=== PATIENT | female | born 1940 | race Caucasian/White ===

== ENCOUNTER 2023-12-20 18:34 | Emergency (ER) | payer MEDICARE, MEDICAID, SELFPAY ==
[2023-12-20 18:39] VITALS: BP 182/86; PULSE 75; RESP 20; TEMP 36.7; O2SAT 96
--- NOTE | 2023-12-20 18:45 | DI.CT_ITS ---
Exam(s) CT HEAD WO EXAM: CT HEAD WO CLINICAL HISTORY: fall, posterior R scalp hematoma. TECHNIQUE: Imaging Protocol: Axial computed tomography images with coronal and sagittal reformatted images were created and reviewed COMPARISON: No exams were available for comparison FINDINGS: Small high right parietal scalp swelling. There are no skull fractures. There is no fluid in the vis ualized paranasal sinuses. There is no evidence of intracranial hemorrhage, mass effect, or shift of midline structures. There are no extra-axial fluid collections. The ventricles are not enlarged or shifted and there is no blo od within the ventricular system nor within the basal cisterns. There is abundant bilateral symmetrical periventricular white matter hypodensity consistent with assisted living executive director jean-claude small vessel disease. No obvious acute territorial infarct. Calcification in the basal ganglia noted. IMPRESSION: No acute intracranial findings on this noninfused CT scan of the brain. RADIATION DOSE DELIVERED: 741.49mGy.cm Total DLP DATA REPOSITORY: All CT scans at this facility are submitted to the National Radiology Data Registry (NRDR) Dose Index Registry (DIR) with the [employer] (ACR). RADIATION OPTIMIZATION: All CT scans at this facility use at least one of these dose optimization te chniques: automated exposure control; mA and/or kV adjustment per patient size (includes targeted exa ms where dose is matched to clinical indication); or iterative reconstruction.
--- NOTE | 2023-12-20 18:53 | ED.GENADUL_ITS ---
Discharge Plan Disposition Patient Disposition: Home Condition: Stable Discharge Details Clinical Impression: Scalp hematoma Primary Care Provider: Unknown,Unknown ED Provider: Sudheer Montero Home Meds and New Rx's Prescriptions: Continued atenolol 25 mg tablet 25 mg PO DAILY clobetasol 0.05 % cream 1 applic topical BID levocetirizine 5 mg tablet 5 mg PO QHS metronidazole [Metrogel] 1 % gel 1 applic topical DAILY esomeprazole magnesium 20 mg capsule,delayed release(DR/EC) 20 mg PO DAILY oxybutynin chloride 10 mg tablet extended release 24hr 10 mg PO DAILY paroxetine HCl 30 mg tablet 30 mg PO DAILY potassium chloride [Klor-Con 10] 10 mEq tablet extended release 10 meq PO DAILY primidone 50 mg tablet 50 mg PO BID Discharge Instructions Instructions: Scalp Contusion in Adults (ED) Additional Instructions: You were seen in the emergency department for your fall at home striking your right posterior scalp on a piece of furniture. This shows a small contusion or hematoma to the area, please continue to use an ice pack on this area to get swelling to go down. The CT scan is negative for any intracranial bleeding. You are not expressing any significant concussive symptoms but you may feel little bit worse as far as headache tomorrow. Please take 1000 mg of Tylenol 3 times per day for pain as needed. Please return to the emergency department for any neurologic changes like nausea, projectile vomiting, profound lethargy, visual changes. HPI General Date/Time Provider Initiated Documentation: 12/20/23 18:53 . HPI Narrative: 83 year-old female, [facility], presents to ED today by POV/ambulating with her son with a chief complaint of mechanical fall at home, her walker tipped over and she went with it, striking the posterior R side of her head on furniture with onset just prior to arrival. Quality described as headache, no radiation to LOC, laceration, visual changes, nausea, repetitive questioning, numbness/tingling, balance problems beyond baseline. Severity is described as moderate. Palliating factors include nothing specific. Provoking factors include nothing specific. Patient not anticoagulated. Related Data Home Medications Medication Instructions Recorded Confirmed atenolol 25 mg tablet 25 mg PO DAILY 12/20/23 12/20/23 clobetasol 0.05 % topical cream 1 applic topical BID 12/20/23 12/20/23 esomeprazole magnesium 20 mg 20 mg PO DAILY 12/20/23 12/20/23 capsule,delayed release levocetirizine 5 mg tablet 5 mg PO QHS 12/20/23 12/20/23 metronidazole 1 % topical gel 1 applic topical DAILY 12/20/23 12/20/23 (Metrogel) oxybutynin chloride 10 mg 10 mg PO DAILY 12/20/23 12/20/23 tablet,extended release 24 hr paroxetine HCl 30 mg tablet 30 mg PO DAILY 12/20/23 12/20/23 potassium chloride 10 mEq 10 meq PO DAILY 12/20/23 12/20/23 tablet,extended release (Klor-Con) primidone 50 mg tablet 50 mg PO BID 12/20/23 12/20/23 Allergies Allergy/AdvReac Type Severity Reaction Status Date / Time Penicillins Allergy Mild Hives Verified 12/20/23 19:00 General Stated Complaint: Fall/Non TraumaCriteria IDALMIS: 3 Review of Systems All systems reviewed & are unremarkable except as noted in HPI and below Exam Narrative Exam Narrative: GENERAL APPEARANCE: Well-nourished, non-toxic, awake and alert, atraumatic, no acute distress. SKIN: Warm, pink, dry, intact, without rashes/lesions/ulcerations. HEAD: Normocephalic, minor posterior R parietal scalp hematoma without abrasion/laceration, no Paula's sign, no periorbital ecchymosis, normal hair distribution for gender/age. EYES: Pupils PERRLA, EOMs intact without nystagmus, normal conjunctiva, no exudates on lids/lashes. ENT: Nares patent, no circumoral cyanosis, no facial swelling NECK: Supple, trachea midline, painless cervical ROM, no midline vertebral tenderness/crepitus/step-offs. LUNGS/CHEST: Lungs CTA bilaterally, non-labored respirations, normal A/P diameter, symmetrical expansion, no chest wall deformity HEART (CV/PV): Regular rate and rhythm without murmur, no peripheral edema, no JVD. ABDOMEN: Soft, non-distended, no guarding. MSK: Normal ROM, no swelling/deformity to bilateral UEs or LEs, moving all extremities without weakness, no cyanosis, spine midline without tenderness, nor mal curvature. NEURO: Mental Status AAOx4 - alert to person, place, time, events No facial droop, no forehead involvement, no dysmetria with FNF Motor: No focal weakness - strength 5/5 in bilateral UEs and LEs, proximal and distal, symmetric. Sensory: sensation intact to light touch globally. Gait NT PSYCH: euthymic, cooperative, pleasant, appropriate speech Course Vital Signs Vital signs: Vital Signs Temperature 36.7 C 12/20/23 18:39 Pulse 75 12/20/23 18:39 Respiratory Rate 20 12/20/23 18:39 Blood Pressure 182/86 H 12/20/23 18:39 Pulse Oximetry 96 12/20/23 18:39 Temperature 36.7 C 12/20/23 18:39 Temperature Source Skin 12/20/23 18:39 Pulse 75 12/20/23 18:39 Respiratory Rate 20 12/20/23 18:39 Respiratory Effort Normal 12/20/23 18:42 Blood Pressure 182/86 H 12/20/23 18:39 Blood Pressure Position Sitting 12/20/23 18:39 Pulse Oximetry 96 12/20/23 18:39 Oxygen Delivery Method Room Air 12/20/23 18:39 Oxygen Flow Rate 0 12/20/23 18:39 Pain Level 9 12/20/23 18:39 Medical Decision Making This dictation utilizes [id number] dictation software and may contain unedited grammatical errors. 83 y/o F presents to ED today with a chief complaint of mechanical fall at home, her walker tipped over, struck her R scalp on furniture. Denies LOC, nausea, repetitive questioning, visual changes. Patient not anticoagulated. Patients' medical history: States hypertension at baseline, tremor at baseline. Pertinent exam findings / vital signs include R parietal scalp hematoma without abrasion/laceration, painless cervical ROM, no dysmetria, neuro intact. Differential / pathologies of concern include headstrike, concussion, scalp hematoma, ICH. Diagnostic studies of: -CT Head wo Contrast - precautionary with patients age and overall health status, but low suspicion for intracranial pathology. Interventions of: -ice pack. ED Course/Assessment/Plan: 83-year-old female tipped over with her walker at home and struck her right parietal scalp on a piece of furniture, denies loss of consciousness, nausea, repetitive questioning or other neurologic abnormality, denying dizziness or visual changes. She lives with her son at home. I counseled her on the low risk for any findings. I recommend she continue her at home treatment for hypertension and counseled on likely mild concussion and may feel a little bit worse tomorrow. Recommend Tylenol 1 g 3 times per day. Recommend strict return criteria for any developing nausea vomiting, alteration from baseline, worsening visual changes, profound lethargy. Findings not consistent with ICH, medical cause of fall. Disposition of Scalp Hematoma. Patient verbalized understanding of the plan and return to ED criteria and engaged in shared decision making. Medical Records Medical records reviewed: Yes I reviewed the patient's medical records. Imaging Data Radiologic Study: Attestation: I personally reviewed and interpreted this imaging study as follows: Imaging: CT Scan Radiologist's impression: Exam: CT Head Without Contrast Exam date and time: 12/20/2023 7:09 PM Age: 83 years old Clinical indication: Injury or trauma; Blunt trauma (contusions or hematomas); Consciousness not specified; Injury date: 10/21/23; Injury details: Fall, posterior R scalp hematoma TECHNIQUE: Imaging protocol: Computed tomography of the head without contrast. Radiation optimization: All CT scans at this facility use at least one of these dose optimization techniques: automated exposure control; mA and/or kV adjustment per patient size (includes targeted exams where dose is matched to clinical indication); or iterative reconstruction. COMPARISON: No relevant prior studies available. FINDINGS: Brain: Slight prominence of cerebral sulci reflects mild cerebral atrophy. Bilateral zones of decreased attenuation seen throughout the deep and periventricular white matter of both cerebral hemispheres are consistent with underlying microvascular ischemic changes. Brainstem and cerebellum are unremarkable and there is no evidence of acute transcortical infarction or recent intracranial hemorrhage. Cerebral ventricles: Ventricular and cisternal spaces are normal in size and configuration and there is no midline shift or hydrocephalus. Paranasal sinuses: Grossly clear throughout. Mastoid air cells: Grossly clear bilaterally. Bones/joints: Bony calvarium and skull base are intact and no acute fractures are detected. Soft tissues: Superior right parietal scalp hematoma is seen near midline with no subjacent fracture detected. IMPRESSION: 1. Cerebral atrophy and underlying microvascular ischemic changes with no evidence of acute transcortical infarction, recent intracranial hemorrhage or hydrocephalus. No acute intracranial process is detected. 2. Superior right parietal scalp hematoma is seen near midline with no subjacent fracture detected. Dictated and Authenticated by: Richar Sabillon MD. Ordering:BRETT Willard MD Quality:SDOH Health Related Social Needs: No Data to Display PFSH All Active Problems (Updated 12/20/23 @ 19:35 by LATOYA Sharma) Scalp hematoma (Acute) Social History Smoking/Tobacco Use Status: Never Smoking risk assessment performed?: Yes Alcohol Intake: never Substance use type: does not use
--- NOTE | 2023-12-20 19:29 | DI.VRAD_ITS ---
PROCEDURE INFORMATION: Exam: CT Head Without Contrast Exam date and time: 12/20/2023 7:09 PM Age: 83 years old Clinical indication: Injury or trauma; Blunt trauma (contusions or hematomas); Consciousness not specified; Injury date: 10/21/23; Injury details: Fall, posterior R scalp hematoma TECHNIQUE: Imaging protocol: Computed tomography of the head without contrast. Radiation optimization: All CT scans at this facility use at least one of these dose optimization techniques: automated exposure control; mA and/or kV adjustment per patient size (includes targeted exams where dose is matched to clinical indication); or iterative reconstruction. COMPARISON: No relevant prior studies available. FINDINGS: Brain: Slight prominence of cerebral sulci reflects mild cerebral atrophy. Bilateral zones of decreased attenuation seen throughout the deep and periventricular white matter of both cerebral hemispheres are consistent with underlying microvascular ischemic changes. Brainstem and cerebellum are unremarkable and there is no evidence of acute transcortical infarction or recent intracranial hemorrhage. Cerebral ventricles: Ventricular and cisternal spaces are normal in size and configuration and there is no midline shift or hydrocephalus. Paranasal sinuses: Grossly clear throughout. Mastoid air cells: Grossly clear bilaterally. Bones/joints: Bony calvarium and skull base are intact and no acute fractures are detected. Soft tissues: Superior right parietal scalp hematoma is seen near midline with no subjacent fracture detected. IMPRESSION: 1. Cerebral atrophy and underlying microvascular ischemic changes with no evidence of acute transcortical infarction, recent intracranial hemorrhage or hydrocephalus. No acute intracranial process is detected. 2. Superior right parietal scalp hematoma is seen near midline with no subjacent fracture detected. Dictated and Authenticated by: Richar Sabillon MD. Ordering:BRETT Willard MD
== END 2023-12-20 20:02 | disposition home or self-care (01) ==
PROVIDERS: Emergency Provider Physician Assistant
DX: S00.03XA Contusion of scalp, initial encounter (principal); W01.190A Fall on same level from slipping, tripping and stumbling with subsequent striking against furniture, initial encounter
CPT/HCPCS: 99284; 70450; 99283

== ENCOUNTER 2024-02-22 12:01 | Emergency (ER) | payer MEDICARE, MEDICAID, SELFPAY ==
[2024-02-22] VITALS (22 sets, daily range): BP systolic 138–175; BP diastolic 60–103; PULSE 58–71; RESP 12–24; TEMP 36.3; O2SAT 93–96
[2024-02-22 12:18] LABS: Abs Immature Grans 0.02 10^3/uL (0.0-0.06); Absolute Basophil Count 0.08 10^3/uL (0.0-0.2); Absolute Eosinophil Count 0.25 10^3/uL (0.0-0.7); Absolute Lymphocyte Count 1.61 10^3/uL (1.2-3.4); Absolute Monocyte Count 0.61 10^3/uL (0.1-0.8); Absolute Neutrophil Count 5.89 10^3/uL (1.2-6.7); Basophils % 0.9 %; HCT 43.3 % (36.0-46.0); HGB 14.5 g/dL (11.2-15.7); Immature Grans % 0.2 %; MCH 31.2 pg (27.0-33.0); MCHC 33.5 % (32.0-36.0); MCV 93 fL (80-95); MPV 9.5 fL (8.0-11.0); Monocytes % 7.2 %; Neutrophils % 69.7 %; Platelet Count 298 10^3/uL (130-400); RBC 4.65 10^6/uL (3.93-5.22); RDW 13.1 % (11.7-14.6); RDW-SD 44.5 fL; WBC 8.46 10^3/uL (4.4-10.8)
[2024-02-22 12:28] LABS: Prothrombin Time 10.4 sec (9.1-11.1)
[2024-02-22 12:40] LABS: ALT 27 U/L (14-59); AST 19 U/L (15-37); Albumin 3.4 g/dL (3.4-5.0); Alkaline Phosphatase 82 U/L (46-116); Anion Gap 10.6 mmol/L (3-11); BUN 10 mg/dL (7-18); Bilirubin, Total 0.55 mg/dL (0.2-1.0); CO2 27.4 mmol/L (21.0-32.0); CREATININE 0.8 mg/dL (0.55-1.02); Calcium 8.8 mg/dL (8.5-10.1); Chloride 103 mmol/L (98-107); Creatine Kinase 52 U/L (26-192); Estimated GFR 73.98 (mL/min/1.73m2); Glucose 113 mg/dL (74-106); Potassium 3.9 mmol/L (3.5-5.1); Sodium 141 mmol/L (136-145); Total Protein 7.9 g/dL (6.4-8.2); Troponin I < 50 ng/L (< or =60)
[2024-02-22 13:05] LABS: Bilirubin Negative (Negative); Blood Negative (Negative); Clarity Clear (Clear); Glucose Negative (Negative); Ketones Negative (Negative); Leukocyte Esterase Trace (Negative); Nitrite Negative (Negative); Specific Gravity 1.025 (1.005-1.025); Urobilinogen 0.2 mg/dL (Up to 0.2)
[2024-02-22 13:13] LABS: Bacteria Few HPF (Negative); C & S Indicated? No; Casts 0-2 Hyaline LPF (Negative); Crystals Negative HPF (Negative); Epithelial Cells Moderate HPF (Negative); Mucus Trace (Negative); RBC Negative HPF (0-2)
[2024-02-22] MEDS: Omnipaque 350 MG/ML 100 ML BTL IJ (13:45)
--- NOTE | 2024-02-22 13:57 | DI.CT_ITS ---
Exam(s) CT BRAIN NECK CTA EXAM: CT BRAIN NECK CTA CLINICAL HISTORY: ? TIA. TECHNIQUE: Imaging Protocol: Axial CT angiography was performed with multi-slice acquisition and mu lti-planar and/or 3D reconstructions. CONTRAST MATERIAL: Intravenous: Omnipaque 350 Contrast volume:structured data in ml COMPARISON: CT CT HEAD WO from 12/20/2023 FINDINGS: CTA Neck W: Aortic arch anatomy: The aortic arch anatomy is conventional and there is no significant stenosis at the origin of the great vessels off of the aortic arch. No intimal flap evident. Anterior circulation: Both common carotid arteries ascend with normal luminal diameters. At the level the carotid bulbs and proximal internal carotid arteries there is minimal plaque without hemodynamically significant stenosis evident. Posterior circulation: Both vertebral arteries originate in conventional fashion off of the subclavian arteries and there is no obvious stenosis at the origin of the vertebral arteries. Both vertebral arteries exhibit normal luminal diameters within the foramen transversarium. Both vertebral arteries contribute to the formation of the basilar artery at the skull base. CTA Brain W: Anterior circulation: Both internal carotid arteries are patent in the skull base-carotid canals as well as within the cave rnous sinuses. The supraclinoid aspects of the ICAs are patent. Both A1 segments are patent as are the anterior cer ebral arteries and there is no evidence of aneurysm at the level of the anterior communicating artery . Both middle cerebral arteries are patent with no evidence of significant stenosis nor intraluminal th rombus. There also no aneurysms of these vessels. Posterior circulation: The basilar artery ascends in the midline. Distally it gives off patent bilateral superior cerebella r arteries. Above this level the basilar artery terminates as patent bilateral posterior cerebral arteries. There is no evidence of aneurysm at the tip of the basilar artery nor elsewhere in the [id number] is. CT BRAIN: There is no evidence of intracranial hemorrhage, mass effect, or shift of midline structures. There are no extra-axial fluid collections. Ventricles are not enlarged or shifted. There is abundant roger ateral periventricular hypodensity consistent with chronic small vessel disease again noted. There are no ring enhancing lesions in the brain and no abnormal meningeal enhancement. IMPRESSION: 1. Patent carotid arteries in the neck. No hemodynamically significant stenosis. 2. Patent vertebral arteries. 3. Patent intracranial arteries. 4. Abundant bilateral periventricular hypodensity consistent with chronic small vessel disease, exhib iting minimal if any significant change when compared to prior study of 12/20/2023. 5. If clinically indicated follow-up MRI with diffusion imaging can be performed. Called by myself to ER physician. RADIATION DOSE DELIVERED: 2,097.76mGy.cm Total DLP DATA REPOSITORY: All CT scans at this facility are submitted to the National Radiology Data Registry (NRDR) Dose Index Registry (DIR) with the [employer] (ACR). RADIATION OPTIMIZATION: All CT scans at this facility use at least one of these dose optimization te chniques: automated exposure control; mA and/or kV adjustment per patient size (includes targeted exa ms where dose is matched to clinical indication); or iterative reconstruction.
--- NOTE | 2024-02-22 15:09 | ED.GENADUL_ITS ---
Discharge Plan Disposition Patient Disposition: Home Condition: Stable Discharge Details Clinical Impression: Facial droop, Hypertension Primary Care Provider: Unknown,Unknown ED Provider: Priscilla Delatorre Home Meds and New Rx's Prescriptions: No Action atenolol 25 mg tablet 25 mg PO DAILY clobetasol 0.05 % cream 1 applic topical BID levocetirizine 5 mg tablet 5 mg PO QHS metronidazole [Metrogel] 1 % gel 1 applic topical DAILY esomeprazole magnesium 20 mg capsule,delayed release(DR/EC) 20 mg PO DAILY oxybutynin chloride 10 mg tablet extended release 24hr 10 mg PO DAILY paroxetine HCl 30 mg tablet 30 mg PO DAILY potassium chloride [Klor-Con 10] 10 mEq tablet extended release 10 meq PO DAILY primidone 50 mg tablet 50 mg PO BID Discharge Instructions Additional Instructions: please keep blood pressure log and follow up with PCP for re-evaluation. your blood pressure has been evaluated and they may want to change your medications no evidence of stroke today, monitor symptoms closely and return with any concerns HPI General Date/Time Provider Initiated Documentation: 02/22/24 12:06 . Limitations to Documentation: no limitations . Information obtained by: patient, family and EMS . HPI Narrative: 83-year-old female with past medical history including hypertension presents for evaluation of concern for worsened facial droop. Family reports that the patient has had a facial droop for several years. But that today they felt like it seemed worse, they were concerned with her walking that maybe she was weak on the left side as well. The patient denies any of the symptoms. She states her face has been like this for a long time and that nothing feels different today. She has no complaints. She did not feel that she needed transport to the hospital, but she has bet at her [id number] that there is nothing wrong wit h her and if she is right she gets a pack of jellybeans. Daughter reported to EMS that her symptoms had completely resolved by the time they had arrived at the home. Related Data Home Medications Medication Instructions Recorded Confirmed atenolol 25 mg tablet 25 mg PO DAILY 12/20/23 12/20/23 clobetasol 0.05 % topical cream 1 applic topical BID 12/20/23 12/20/23 esomeprazole magnesium 20 mg 20 mg PO DAILY 12/20/23 12/20/23 capsule,delayed release levocetirizine 5 mg tablet 5 mg PO QHS 12/20/23 12/20/23 metronidazole 1 % topical gel 1 applic topical DAILY 12/20/23 12/20/23 (Metrogel) oxybutynin chloride 10 mg 10 mg PO DAILY 12/20/23 12/20/23 tablet,extended release 24 hr paroxetine HCl 30 mg tablet 30 mg PO DAILY 12/20/23 12/20/23 potassium chloride 10 mEq 10 meq PO DAILY 12/20/23 12/20/23 tablet,extended release (Klor-Con) primidone 50 mg tablet 50 mg PO BID 12/20/23 12/20/23 Allergies Allergy/AdvReac Type Severity Reaction Status Date / Time Penicillins Allergy Mild Hives Verified 02/22/24 12:09 General Stated Complaint: CVA/TIA IDALMIS: 2 Exam Narrative Exam Narrative: Review of Systems: All systems reviewed & are unremarkable except as noted in HPI and below Well-developed, no acute distress NCAT PERRL, normal conjunctiva RRR Unlabored respiratory effort Nondistended abdomen Extremities w/o deformity, no cyanosis, no edema No rashes or lesions. Left-sided facial droop, sensation and strength intact throughout, no localizing deficits, there is a slight resting tremor Appropriate mood and affect Course Vital Signs Vital signs: Vital Signs Temperature 36.3 C L 02/22/24 12:01 Pulse 65 02/22/24 12:01 Respiratory Rate 18 02/22/24 12:01 Blood Pressure 173/103 H 02/22/24 12:01 Pulse Oximetry 96 02/22/24 12:01 Temperature 36.3 C L 02/22/24 12:01 Temperature Source Temporal Artery Scan 02/22/24 12:01 Pulse 65 02/22/24 14:40 Pulse 67 02/22/24 14:30 Respiratory Rate 18 02/22/24 14:40 Respiratory Effort Normal, Non-Labored 02/22/24 12:13 Respiratory Depth Normal 02/22/24 12:13 Respiratory Pattern Normal 02/22/24 12:13 Blood Pressure 169/75 H 02/22/24 14:40 Blood Pressure Mean 98 02/22/24 13:17 Blood Pressure Position Sitting 02/22/24 12:01 Pulse Oximetry 93 02/22/24 14:40 Oxygen Delivery Method Room Air 02/22/24 12:01 Oxygen Flow Rate 0 02/22/24 12:01 Lab/Test Results Lab/Test Results: Laboratory Tests Range/Units 02/22/24 02/22/24 02/22/24 12:08 12:08 13:00 WBC (4.4-10.8) 10^3/uL 8.46 RBC (3.93-5.22) 10^6/uL 4.65 Hgb (11.2-15.7) g/dL 14.5 Hct (36.0-46.0) % 43.3 MCV (80-95) fL 93 MCH (27.0-33.0) pg 31.2 MCHC (32.0-36.0) % 33.5 RDW (11.7-14.6) % 13.1 Plt Count (130-400) 10^3/uL 298 MPV (8.0-11.0) fL 9.5 Immature Gran % % 0.2 Neutrophils % % 69.7 Lymphocytes % % 19.0 Monocytes % % 7.2 Eosinophils % % 3.0 Basophils % % 0.9 Nucleated RBC % (0.0-0.3) % 0.0 Absolute Neutrophils (1.2-6.7) 10^3/uL 5.89 Absolute Lymphocytes (1.2-3.4) 10^3/uL 1.61 Absolute Monocytes (0.1-0.8) 10^3/uL 0.61 Absolute Eosinophils (0.0-0.7) 10^3/uL 0.25 Absolute Basophils (0.0-0.2) 10^3/uL 0.08 PT (9.1-11.1) sec 10.4 INR (0.9-1.1) 1.0 Sodium (136-145) mmol/L 141 Potassium (3.5-5.1) mmol/L 3.9 Chloride (98-107) mmol/L 103 Carbon Dioxide (21.0-32.0) mmol/L 27.4 Anion Gap (3-11) mmol/L 10.6 BUN (7-18) mg/dL 10 Creatinine (0.55-1.02) mg/dL 0.8 Est GFR (CKD-EPI 2020) (mL/min/1.73m2) 73.98 Glucose (74-106) mg/dL 113 H Calcium (8.5-10.1) mg/dL 8.8 Magnesium (1.8-2.4) mg/dL 2.0 Cancelled Total Bilirubin (0.2-1.0) mg/dL 0.55 AST (15-37) U/L 19 ALT (14-59) U/L 27 Alkaline Phosphatase (46-116) U/L 82 Creatine Kinase (26-192) U/L 52 Troponin I (< or =60) ng/L < 50 Total Protein (6.4-8.2) g/dL 7.9 Albumin (3.4-5.0) g/dL 3.4 Urine Color (Yellow) Yellow Urine Clarity (Clear) Clear Urine pH (5-8) 6.0 Ur Specific [place] (1.005-1.025) 1.025 Urine Protein (Neg-Trace) mg/dL Trace Urine Ketones (Negative) mg/dL Negative Urine Blood (Negative) Negative Urine Nitrite (Negative) Negative Urine Bilirubin (Negative) Negative Urine Urobilinogen (Up to 0.2) mg/dL 0.2 Ur Leukocyte Esterase (Negative) Trace H Urine RBC (0-2) HPF Negative Urine WBC (0-5) HPF 5-10 Ur Epithelial Cells (Negative) HPF Moderate Urine Crystals (Negative) HPF Negative Urine Bacteria (Negative) HPF Few Urine Casts (Negative) LPF 0-2 Hyaline Urine Mucus (Negative) Trace Ur Culture Indicated? No Urine Glucose (Negative) mg/dL Negative Medical Decision Making Emergent evaluation of facial droop and concern for weakness. Patient is outside of the window for any acute stroke workup. Patient the patient has no acute symptoms at this time so I have a low suspicion for an acute stroke. Her facial droop is chronic and unchanged. She has no evidence of unilateral weakness or speech changes. The family reports that the tremor is chronic and that she is being worked up by her PCP for possible dementia. Given her risk factors, I did obtain blood work. Blood work did not reveal leukocytosis or significant anemia. No electrolyte derangement or signs of organ dysfunction. Her urinalysis is without signs of infection. A CTA head and neck was obtained to evaluate for possible acute neurologic cause of her symptoms. I discussed with the radiologist and there are some old changes, but nothing acute at this time. Patient very relieved to the correct and what a bag of gummy bears. I advised that they keep a blood pressure log and follow-up with PCP for reevaluation of blood pressure symptoms she may benefit from a change in her blood pressure medication. Medical Records Medical records reviewed: Yes I reviewed the patient's medical records. Lab Data Lab results reviewed: Yes I reviewed the patient's lab results. Quality:SDOH Health Related Social Needs: No Data to Display PFSH All Active Problems (Updated 02/22/24 @ 14:30 by Priscilla Delatorre MD) Hypertension (Chronic) Facial droop (Acute) Social History Smoking/Tobacco Use Status: Never Smoking risk assessment performed?: Yes Alcohol Intake: never Substance use type: does not use
== END 2024-02-22 14:49 | disposition home or self-care (01) ==
PROVIDERS: Emergency Provider Emergency Medicine
DX: R29.810 Facial weakness (principal); I10 Essential (primary) hypertension
CPT/HCPCS: 36415; 70496; 70498; 80053; 82550; 99285; 81003; 81015; 83735; 84484; 85025; 85610; 99284; J3490

== ENCOUNTER 2024-04-26 01:22 | Outpatient (CLI) | payer MEDICARE, MEDICAID, SELFPAY ==
--- NOTE | 2024-04-26 | DI.CT_ITS ---
Exam(s) CT HEAD WO EXAM: CT HEAD WO CLINICAL HISTORY: UNSPECIFIED ABNORM OF GAIT MOBILITY, MILD COGNITIVE IMPAIRMENT R29.6,. TECHNIQUE: Imaging Protocol: Axial computed tomography images with coronal and sagittal reformatted images were created and reviewed COMPARISON: CT CT BRAIN NECK CTA from 02/22/2024 FINDINGS: There are no skull fractures. No significant mucosal thickening nor fluid within the visualized paran sarai sinuses and left mastoid air cells. There is some density-fluid evident in the aditus ad antrum and superior mastoid air cells on the right-side. Left mastoid air cells and left middle ear are cl ear. There is no evidence of intracranial hemorrhage, mass effect, or shift of midline structures. There are no extra-axial fluid collections. The ventricles are not enlarged or shifted and there is no blo od within the ventricular system nor within the basal cisterns. Asymmetric calcification in the basa l ganglia is again noted, unchanged. There is again noted abundant bilateral periventricular hypodensity consistent with chronic small ves james disease. There is no evidence of obvious acute transcortical infarct nor obvious new lacunar inf arct. IMPRESSION: No acute intracranial findings on this noninfused CT scan of the brain. Abundant bilateral periventr icular hypodensity again noted consistent with chronic small vessel disease. If clinically indicated follow-up MRI with diffusion imaging can be performed There is some density-fluid in the upper right mastoid air cells and ipsilateral aditus ad antrum. RADIATION DOSE DELIVERED: 823.9mGy.cm Total DLP DATA REPOSITORY: All CT scans at this facility are submitted to the National Radiology Data Registry (NRDR) Dose Index Registry (DIR) with the [employer] (ACR). RADIATION OPTIMIZATION: All CT scans at this facility use at least one of these dose optimization te chniques: automated exposure control; mA and/or kV adjustment per patient size (includes targeted exa ms where dose is matched to clinical indication); or iterative reconstruction.
== END 2024-04-26 01:42 ==
PROVIDERS: Visit Provider Psychiatry & Neurology Neurology
DX: I67.82 Cerebral ischemia (principal)
CPT/HCPCS: 70450

== ENCOUNTER 2024-05-23 18:12 | Emergency (ER) | payer MEDICARE, MEDICAID, SELFPAY ==
[2024-05-23 18:15] VITALS: BP 146/75; PULSE 76; RESP 16; TEMP 36.2; O2SAT 94
--- NOTE | 2024-05-23 19:02 | W.ED.GENAD ---
Discharge Plan Disposition Patient Disposition: Home Discharge Details Clinical Impression: Head injury Primary Care Provider: Unknown,Unknown ED Provider: Liliam Esparza Home Meds and New Rx's Prescriptions: Continued atenolol 25 mg tablet 25 mg PO DAILY clobetasol 0.05 % cream 1 applic topical BID levocetirizine 5 mg tablet 5 mg PO QHS metronidazole [Metrogel] 1 % gel 1 applic topical DAILY esomeprazole magnesium 20 mg capsule,delayed release(DR/EC) 20 mg PO DAILY oxybutynin chloride 10 mg tablet extended release 24hr 10 mg PO DAILY paroxetine HCl 30 mg tablet 30 mg PO DAILY potassium chloride [Klor-Con 10] 10 mEq tablet extended release 10 meq PO DAILY primidone 50 mg tablet 50 mg PO BID buspirone 10 mg tablet 10 mg PO TID montelukast [Singulair] 10 mg tablet 10 mg PO DAILY lorazepam 0.5 mg tablet 0.5 mg PO DAILY PRN fluticasone propionate [Allergy Relief (fluticasone)] 50 mcg/actuation spray,suspension 2 spray intranasal DAILY PRN Rx Instructions: administer into each nostril Discharge Instructions Additional Instructions: Please call your primary care provider first thing in the morning to schedule follow-up appointment/ED follow-up. Your head and facial CTs and neck CT were reassuring. There was no fracture noted or acute changes. Return to emergency care if you develop new headache, balance problems, dizziness, nausea/vomiting associated with head injury, or if you are very worried and need to be rechecked again immediately Discharge Data Discharge Date/Time-TO BE ENTERED AT DEPARTURE: 05/23/24 20:49 HPI General Date/Time Provider Initiated Documentation: 05/23/24 18:29. HPI Narrative: Lindy is an 84-year-old female who presents to the emergency department today for evaluation of head injury. She reports that her sneakers got caught on the rubber floor mat at home, causing her to trip forward and hit the left side of her face on a bookcase. She denies headache, dizziness, vision change, nausea/vomiting, neck pain, back pain, chest pain, difficulty breathing, extremity injury or weakness. She does have some left-sided facial droop that is residual from a stroke. Son says that she has been behaving normally since this occurred. She is not on any anticoagulation. She does have a history of frequent falls, walks with a walker. Physical exam remarkable for ecchymosis noted to the left oriental orthodox area. PERRL, EOMs intact. Cranial nerves II through XII intact as tested. 5 out of 5 muscle strength upper and lower extremities. No C-spine/T-spine/L-spine tenderness/step-off/deformity. Easy work of breathing, lung sounds clear bilaterally. Normal heart sounds. Abdomen is soft, nondistended, nontender to palpation. No chest wall tenderness with palpation. Overall workup today reassuring, however patient's age does raise suspicion for serious pathology. History concerning for facial fracture or intracranial bleed/C-spine fracture. Head CT with facial bones and C-spine CTs ordered. Head and neck CT reassuring. There was concern for right-sided otomastoiditis, no ear pain or tenderness to palpation of mastoid. Lateral periorbital ecchymosis/edema noted with no corresponding fracture, consistent with clinical picture. Workup today reassuring. Reviewed with patient and her son the importance of fall prevention at home. Recommend follow-up with PCP for further evaluation. Related Data Home Medications ?Medication ?Instructions ?Recorded ?Confirmed atenolol 25 mg tablet 25 mg PO DAILY 12/20/23 05/23/24 clobetasol 0.05 % topical cream 1 applic topical BID 12/20/23 05/23/24 esomeprazole magnesium 20 mg 20 mg PO DAILY 12/20/23 12/20/23 capsule,delayed release levocetirizine 5 mg tablet 5 mg PO QHS 12/20/23 05/23/24 metronidazole 1 % topical gel 1 applic topical DAILY 12/20/23 05/23/24 (Metrogel) oxybutynin chloride 10 mg 10 mg PO DAILY 12/20/23 05/23/24 tablet,extended release 24 hr paroxetine HCl 30 mg tablet 30 mg PO DAILY 12/20/23 05/23/24 potassium chloride 10 mEq 10 meq PO DAILY 12/20/23 05/23/24 tablet,extended release (Klor-Con) primidone 50 mg tablet 50 mg PO BID 12/20/23 05/23/24 buspirone 10 mg tablet 10 mg PO TID 05/23/24 05/23/24 fluticasone propionate 50 2 spray intranasal DAILY PRN 05/23/24 05/23/24 mcg/actuation nasal spray,suspension (Allergy Relief (fluticasone)) lorazepam 0.5 mg tablet 0.5 mg PO DAILY PRN 05/23/24 05/23/24 montelukast 10 mg tablet 10 mg PO DAILY 05/23/24 05/23/24 (Singulair) Allergies Allergy/AdvReac Type Severity Reaction Status Date / Time Penicillins Allergy Mild Hives Verified 05/23/24 18:22 General Stated Complaint: Fall/Non TraumaCriteria IDALMIS: 4 Review of Systems Narrative: see HPI Exam Const General: cooperative, healthy appearing, comfortable, no acute distress, well developed and well groomed Nutritional Appearance: average body habitus Orientation: alert and oriented x3 HENMT Head: no palpable skull fracture, normocephalic, contusion left temporal and no lacerations Ears: hearing grossly normal bilaterally General nose exam: external nose normal Face and sinus: normal facial exam Mouth: oral mucosae normal and moist mucous membranes Neck Neck: normal visual inspection and full ROM Chest Chest: normal inspection of the chest and normal palpation of entire chest wall Resp Effort & Inspection: normal respiratory effort and able to speak in complete sentences Auscultation: clear to auscultation bilaterally Cardio Rate: regular rate Rhythm: regular rhythm GI Inspection: normal to inspection and non-distended Palpation: soft, not firm, no guarding and nontender Skin General skin exam: no rashes or lesions noted Neuro General: patient alert, patient oriented x3, tone normal, moves all extremities, no focal motor deficits and CN's II-XI intact bilaterally Cranial Nerves: CN's II-XI intact bilaterally, PERRL, EOM intact bilaterally, no nystagmus and facial strength normal Cognition: normal cognition Speech: speech normal Motor: muscle tone normal throughout and strength 5/5 throughout Sensory Exam: no sensory deficits noted Course Vital Signs Vital signs: Vital Signs Temperature 36.2 C L 05/23/24 18:15 Pulse 76 05/23/24 18:15 Respiratory Rate 16 05/23/24 18:15 Blood Pressure 146/75 H 05/23/24 18:15 Pulse Oximetry 94 05/23/24 18:15 Temperature 36.2 C L 05/23/24 18:15 Temperature Source Tympanic 05/23/24 18:15 Pulse 76 05/23/24 18:15 Respiratory Rate 16 05/23/24 18:15 Respiratory Effort Normal 05/23/24 18:50 Blood Pressure 146/75 H 05/23/24 18:15 Blood Pressure Position Sitting 05/23/24 18:15 Pulse Oximetry 94 05/23/24 18:15 Oxygen Delivery Method Room Air 05/23/24 18:15 Oxygen Flow Rate 0 05/23/24 18:15 Pain Level 0 05/23/24 18:15 Medical Decision Making Quality:SDOH Health Related Social Needs: No Data to Display PFSH All Active Problems (Updated 05/23/24 @ 20:39 by Liliam Baxter) Head injury (Acute) Social History Smoking/Tobacco Use Status: Never Smoking risk assessment performed?: Yes Alcohol Intake: never Substance use type: does not use Housing: house Do you feel safe at home: Yes Do you feel safe in your relationship?: Yes
[2024-05-23 19:49] VITALS: BP 167/71; PULSE 67; RESP 18; O2SAT 94
--- NOTE | 2024-05-23 20:04 | DI.CT_ITS ---
Exam(s) CT HEAD CERV SPINE FACIAL WO EXAM: CT HEAD CERV SPINE FACIAL WO CLINICAL HISTORY: head injury. TECHNIQUE: Imaging Protocol: Axial computed tomography images with coronal and sagittal reformatted images were created and reviewed COMPARISON: CT CT HEAD WO from 04/26/2024 FINDINGS: CT Head: Ventricles and Extra axial spaces: Normal in size and morphology for the patient's age. Hemorrhage: None. Cerebral parenchyma: No evidence of acute hemorrhage or acute infarct. Mild atrophy. Prominent whit e matter changes of small vessel disease. Midline shift: None. Brainstem/Cerebellum: Normal. Calvarium: Normal. Visualized Paranasal sinuses/Mastoids: Right mastoid fluid again noted. Soft Tissues: Mild soft tissue swelling lateral to the left orbit/zygomatic arch region. CT Face: Facial Bones: No fracture is noted in facial bones. Sinuses and Mastoids: Fluid again noted in right mastoid and right mesotympanic cavity. Globes, extraocular muscles, optic nerves and retrobulbar fat: Normal. Upper aerodigestive tract: Normal. Mandible and bilateral temporomandibular joints: Normal. Soft tissues: Mild soft tissue swelling lateral to the left orbit/zygomatic arch region. CT Cervical Spine: Bones: No acute fracture or subluxation. Soft Tissues: Unremarkable. Lung Apices: Clear. IMPRESSION: 1. No acute intracranial process. 2. No acute fracture or subluxation in the cervical spine. 3. No acute facial fracture. Fluid within the right mastoid and mesotympanic cavity could indicate ma stoiditis. RADIATION DOSE DELIVERED: 2,029.42mGy.cm Total DLP DATA REPOSITORY: All CT scans at this facility are submitted to the National Radiology Data Registry (NRDR) Dose Index Registry (DIR) with the [employer] (ACR). RADIATION OPTIMIZATION: All CT scans at this facility use at least one of these dose optimization te chniques: automated exposure control; mA and/or kV adjustment per patient size (includes targeted exa ms where dose is matched to clinical indication); or iterative reconstruction.
--- NOTE | 2024-05-23 20:21 | DI.VRAD_ITS ---
PROCEDURE INFORMATION: Exam: CT Head Without Contrast Exam date and time: 05/23/2024 7:21 PM Age: 84 years old Clinical indication: Injury or trauma; Fall; Blunt trauma (contusions or hematomas); Consciousness not specified; Cheek bone; Left; Injury date: 05/23/24; Patient HX: Head injury TECHNIQUE: Imaging protocol: Computed tomography of the head without contrast. Radiation optimization: All CT scans at this facility use at least one of these dose optimization techniques: automated exposure control; mA and/or kV adjustment per patient size (includes targeted exams where dose is matched to clinical indication); or iterative reconstruction. COMPARISON: CT HEAD WO 04/26/2024 1:55 PM FINDINGS: Brain: Prominence of cerebral sulci reflects diffuse cerebral atrophy. Poorly marginated hypodensities seen throughout the deep and periventricular white matter of both cerebral hemispheres are consistent with microvascular ischemic changes. Brainstem and cerebellum are unremarkable and there is no evidence of acute transcortical infarction or recent intracranial hemorrhage. Cerebral ventricles: Mild dilatation of the 3rd and lateral ventricles is commensurate with the degree of cerebral atrophy. Paranasal sinuses: Grossly clear throughout. Mastoid air cells: Opacification of the right-sided mesotympanic cavity, mastoid antrum and scattered mastoid air cells noted. Bones: Bony calvarium and skull base are intact and no acute fractures are detected. Soft tissues: Lateral periorbital ecchymosis/edema noted with no subjacent fracture detected at the levels imaged. IMPRESSION: 1. Diffuse atrophy and probable microvascular ischemic changes with no evidence of acute transcortical infarction, recent intracranial hemorrhage or hydrocephalus. No acute intracranial process is detected. 2. Concern for right-sided otomastoiditis. Correlation with clinical data is necessary. 3. Lateral periorbital ecchymosis/edema noted with no subjacent fracture detected at the levels imaged. Correlation with clinical data is necessary. PROCEDURE INFORMATION: Exam: CT Maxillofacial Without Contrast Exam date and time: 05/23/2024 7:21 PM Age: 84 years old Clinical indication: Injury or trauma; Fall; Blunt trauma (contusions or hematomas); Consciousness not specified; Cheek bone; Left; Injury date: 05/23/24; Patient HX: Head injury TECHNIQUE: Imaging protocol: Computed tomography of the face without contrast. Radiation optimization: All CT scans at this facility use at least one of these dose optimization techniques: automated exposure control; mA and/or kV adjustment per patient size (includes targeted exams where dose is matched to clinical indication); or iterative reconstruction. COMPARISON: CT HEAD WO 04/26/2024 1:55 PM FINDINGS: Orbital cavities: Bony margins of the orbits are intact bilaterally with no orbital fractures detected. Both globes are intact and the intraorbital contents are normal in appearance and appear bilaterally symmetric. Paranasal sinuses: Paranasal sinuses are clear throughout with no significant mucosal disease or layering fluid detected. Bones: Nasal bones, zygomatic arches and right and left vertical and horizontal mandibular rami are all intact. No acute maxillofacial fractures are detected. Soft tissues: Lateral periorbital ecchymosis/edema noted with no subjacent fracture detected at the levels imaged. IMPRESSION: Lateral periorbital ecchymosis/edema noted with no subjacent fracture detected at the levels imaged. Correlation with clinical data is necessary. PROCEDURE INFORMATION: Exam: CT Cervical Spine Without Contrast Exam date and time: 05/23/2024 7:21 PM Age: 84 years old Clinical indication: Injury or trauma; Fall; Blunt trauma (contusions or hematomas); Consciousness not specified; Cheek bone; Left; Injury date: 05/23/24; Patient HX: Head injury TECHNIQUE: Imaging protocol: Computed tomography of the cervical spine without contrast. Radiation optimization: All CT scans at this facility use at least one of these dose optimization techniques: automated exposure control; mA and/or kV adjustment per patient size (includes targeted exams where dose is matched to clinical indication); or iterative reconstruction. COMPARISON: CT BRAIN NECK CTA 02/22/2024 1:37 PM FINDINGS: Bones: There is arthrosis involving the anterior atlantodental interval with loss of joint space and marginal osteophyte formation and the odontoid process is grossly intact. There are mild anterolistheses of C2 upon C3 and C6 upon C7 and there is gross preservation of vertebral body height throughout cervical levels with no vertebral body fractures or other significant subluxations detected. No acute fractures are detected involving the posterior elements of the cervical spine. Spinal canal/intervertebral discs/neural foramina: Loss of disc space height with posterior osteocartilaginous ridging is most significant at C5-C6 resulting in canal narrowing and possible mass-effect upon the ventral cord which could be better evaluated with MRI. No severe bony foraminal narrowings detected at cervical levels. Lungs: No pneumothorax or consolidation detected at the lung apices. Soft tissues: Unremarkable. IMPRESSION: Cervical spondylosis with suspected central canal narrowing as above. No acute cervical fractures are detected. Dictated and Authenticated by: Richar Sabillon MD. Ordering:SAMUEL Ricketts MD
[2024-05-23 20:47] VITALS: BP 152/70; PULSE 72; RESP 16; TEMP 36.9; O2SAT 99
== END 2024-05-23 20:49 | disposition home or self-care (01) ==
PROVIDERS: Emergency Provider Nurse Practitioner Family
DX: S00.83XA Contusion of other part of head, initial encounter (principal); W01.190A Fall on same level from slipping, tripping and stumbling with subsequent striking against furniture, initial encounter; Z91.81 History of falling
CPT/HCPCS: 99284; 70450; 70486; 72125; 99283

== ENCOUNTER 2024-10-24 20:51 | Emergency (ER) | payer MEDICARE, MEDICAID, SELFPAY ==
[2024-10-24 20:58] VITALS: BP 146/86; PULSE 73; RESP 20; TEMP 36.6; O2SAT 93
--- NOTE | 2024-10-24 21:45 | DI.CT_ITS ---
Exam(s) CT HEAD WO EXAM: CT HEAD WO CLINICAL HISTORY: head trauma. TECHNIQUE: Imaging Protocol: Axial computed tomography images with coronal and sagittal reformatted images were created and reviewed COMPARISON: CT CT HEAD CERV SPINE FACIAL WO from 05/23/2024 FINDINGS: There are no skull fractures. There is no fluid in the visualized paranasal sinuses. There is no evidence of intracranial hemorrhage, mass effect, or shift of midline structures. There are no extra-axial fluid collections. The ventricles are not enlarged or shifted and there is no blo od within the ventricular system nor within the basal cisterns. Some calcifications seen in both bas al ganglia. There is abundant bilateral periventricular hypodensity consistent chronic small vessel disease, ruben lar to the previous study. IMPRESSION: No acute intracranial findings on this noninfused CT scan of the brain. Chronic small-vessel white ischemic changes again noted. RADIATION DOSE DELIVERED: 810.11mGy.cm Total DLP DATA REPOSITORY: All CT scans at this facility are submitted to the National Radiology Data Registry (NRDR) Dose Index Registry (DIR) with the [employer] (ACR). RADIATION OPTIMIZATION: All CT scans at this facility use at least one of these dose optimization te chniques: automated exposure control; mA and/or kV adjustment per patient size (includes targeted exa ms where dose is matched to clinical indication); or iterative reconstruction.
--- NOTE | 2024-10-24 21:46 | W.ED.GENAD ---
Discharge Plan Disposition Patient Disposition: Home Condition: Improving Discharge Details Clinical Impression: Head contusion, Abrasion of scalp Primary Care Provider: Richard Kinney ED Provider: Steve Tena [place] Meds and New Rx's Prescriptions: Continued atenolol 25 mg tablet 25 mg PO DAILY clobetasol 0.05 % cream 1 applic topical BID levocetirizine 5 mg tablet 5 mg PO QHS metronidazole [Metrogel] 1 % gel 1 applic topical DAILY esomeprazole magnesium 20 mg capsule,delayed release(DR/EC) 20 mg PO DAILY oxybutynin chloride 10 mg tablet extended release 24hr 10 mg PO DAILY paroxetine HCl 30 mg tablet 30 mg PO DAILY potassium chloride [Klor-Con 10] 10 mEq tablet extended release 10 meq PO DAILY primidone 50 mg tablet 50 mg PO BID buspirone 10 mg tablet 10 mg PO TID montelukast [Singulair] 10 mg tablet 10 mg PO DAILY lorazepam 0.5 mg tablet 0.5 mg PO DAILY PRN fluticasone propionate [Allergy Relief (fluticasone)] 50 mcg/actuation spray,suspension 2 spray intranasal DAILY PRN Rx Instructions: administer into each nostril doxycycline hyclate 100 mg capsule 100 mg feeding tube BID Patient Comments: TAKE ONE CAPSULE BY MOUTH TWICE A DAY FOR 14 DAYS Discharge Instructions Instructions: Head injury in adults, Minor Contusion ED Discharge Data Discharge Physician: Steve Tena [facility] General Date/Time Provider Initiated Documentation: 10/24/24 21:46. HPI Narrative: Patient presents emergency department after she tripped backwards falling on her head incident trauma to her occiput. Reports moderate bleeding. Denies any loss of consciousness. Denies any syncope or any other problems that she just tripped and fell Related Data Home Medications ?Medication ?Instructions ?Recorded ?Confirmed atenolol 25 mg tablet 25 mg PO DAILY 12/20/23 10/24/24 clobetasol 0.05 % topical cream 1 applic topical BID 12/20/23 10/24/24 esomeprazole magnesium 20 mg 20 mg PO DAILY 12/20/23 10/24/24 capsule,delayed release levocetirizine 5 mg tablet 5 mg PO QHS 12/20/23 10/24/24 metronidazole 1 % topical gel 1 applic topical DAILY 12/20/23 10/24/24 (Metrogel) oxybutynin chloride 10 mg 10 mg PO DAILY 12/20/23 10/24/24 tablet,extended release 24 hr paroxetine HCl 30 mg tablet 30 mg PO DAILY 12/20/23 10/24/24 potassium chloride 10 mEq 10 meq PO DAILY 12/20/23 10/24/24 tablet,extended release (Klor-Con) primidone 50 mg tablet 50 mg PO BID 12/20/23 10/24/24 buspirone 10 mg tablet 10 mg PO TID 05/23/24 10/24/24 fluticasone propionate 50 2 spray intranasal DAILY PRN 05/23/24 10/24/24 mcg/actuation nasal spray,suspension (Allergy Relief (fluticasone)) lorazepam 0.5 mg tablet 0.5 mg PO DAILY PRN 05/23/24 10/24/24 montelukast 10 mg tablet 10 mg PO DAILY 05/23/24 10/24/24 (Singulair) doxycycline hyclate 100 mg capsule 100 mg feeding tube BID 10/24/24 10/24/24 Allergies Allergy/AdvReac Type Severity Reaction Status Date / Time Penicillins Allergy Mild Hives Verified 10/24/24 21:02 General Stated Complaint: Fall/Non TraumaCriteria IDALMIS: 3 Review of Systems Narrative: Review of Systems: Constitutional: No fevers, chills, sweats Eye: No recent visual problems ENT: No ear pain, nasal congestion, sore throat Respiratory: No shortness of breath, cough Cardiovascular: No Chest pain, palpitations, syncope Gastrointestinal: No nausea, vomiting, diarrhea Genitourinary: No hematuria Godwin/Lymph: Negative for bruising tendency, swollen lymph glands Endocrine: Negative for excessive thirst, excessive hunger Musculoskeletal: No back pain, neck pain, joint pain, muscle pain, decreased range of motion Integumentary: No rash, pruritus, abrasions Neurologic: Alert & oriented X 4 Psychiatric: No anxiety, depression Exam Narrative Exam Narrative: Exam; vitals signs as reported above normal Constitutional; In no acute distress, afebrile General: cooperative, healthy appearing, comfortable and no acute distress HEENT: Head: normal to inspection, no palpable skull fracture very small 0.3 mm wound on the occiput but now not bleeding nonsuturable Eyes: : appearance normal, both eyes and all related structures EOM intact bilaterally Pupils: PERRL : conjunctiva normal Direct ophthalmoscopy: normal light reflex, normal conjunctiva, normal visual acuity Ears: Normal TM, normal external canal Nose: normal no rhinorreha Neck no JVD, supple non tender Neck: normal visual inspection, full ROM and no lymphadenopathy Chest: normal inspection of the chest Respiratory : normal respiratory effort and able to speak in complete sentences no wheezing no rales Cardio Rate: regular rate, rhythm: regular rhythm normal heart sounds S1 and S2 no murmurs, gallops, or rubs GI : normal to inspection, normal bowel sounds, soft, non tender, non distended, no organomegaly Back/Spine/ no CVA tenderness Thoracic/Lumbar Spine: no tenderness or deformities Skin no rashes or lesions Neuro: patient alert oriented x 4 and no meningeal signs, Cranial Nerves: CN's II-XI intact bilaterally, Cognition: normal cognition, Speech: speech normal, Gait: normal gait, Depp tendon reflexes normal 2+ muscle strength 5/5 bilaterally Extremities, no edema, full range of motion, normal strength : normal Rectal: Course Vital Signs Vital signs: Vital Signs Temperature 36.6 C 10/24/24 20:58 Pulse 73 10/24/24 20:58 Respiratory Rate 20 10/24/24 20:58 Blood Pressure 146/86 H 10/24/24 20:58 Pulse Oximetry 93 10/24/24 20:58 Temperature 36.6 C 10/24/24 20:58 Pulse 73 10/24/24 20:58 Respiratory Rate 20 10/24/24 20:58 Blood Pressure 146/86 H 10/24/24 20:58 Blood Pressure Position Sitting 10/24/24 20:58 Pulse Oximetry 93 10/24/24 20:58 Oxygen Delivery Method Room Air 10/24/24 20:58 Oxygen Flow Rate 0 10/24/24 20:58 Medical Decision Making MDM: Summary: Patient who tripped fell lost her balance and sustained trauma to the occiput. CAT scan of the head is negative is read by the radiologist. She has a little small puncture wound in the occiput which is not suturable and is not bleeding that was dressed. Patient will be discharged home with her son Data Review Analysis All the data on this patient was reviewed by me including laboratory and imaging studies as well as bedside studies performed by me Independent review of Studies Imaging CT scan does not show any acute skull fracture or intraparenchymal bleed Lab: Risk Stratification: Patient who tripped who sustained trauma to the head she will be discharged home Differential Diagnosis: 1. Scalp contusion 2. Scalp laceration 3. Skull fracture 4. Intracerebral bleed 5. Consultants: Shared disposition: Patient is under send disposition and will follow accordingly Impression: Medical Records Medical records reviewed: Yes I reviewed the patient's medical records. Quality:SDOH Health Related Social Needs: No Data to Display PFSH All Active Problems (Updated 10/24/24 @ 23:32 by Steve Tena MD) Abrasion of scalp (Acute) Contusion of head (Acute) Social History Smoking/Tobacco Use Status: Never Smoking risk assessment performed?: Yes Alcohol Intake: never Substance use type: does not use Housing: house Do you feel safe at home: Yes Do you feel safe in your relationship?: Yes
--- NOTE | 2024-10-24 23:46 | DI.VRAD_ITS ---
PROCEDURE INFORMATION: Exam: CT Head Without Contrast Exam date and time: 10/24/2024 10:14 PM Age: 84 years old Clinical indication: Injury or trauma; Fall; Blunt trauma (contusions or hematomas); Consciousness not specified; Injury date: 10/24/24; Injury details: Head trauma TECHNIQUE: Imaging protocol: Computed tomography of the head without contrast. Radiation optimization: All CT scans at this facility use at least one of these dose optimization techniques: automated exposure control; mA and/or kV adjustment per patient size (includes targeted exams where dose is matched to clinical indication); or iterative reconstruction. COMPARISON: CT HEAD CERV SPINE FACIAL WO 05/23/2024 7:21 PM FINDINGS: Brain: There are bilateral periventricular white matter and centrum semiovale hypodensities, consistent with chronic ischemic small vessel disease. Mineralization of bilateral basal ganglia, age-related. Age related diffuse parenchymal volume loss. No recent infarct, intracranial bleed or mass effect. Cerebral ventricles: Ex vacuo dilatation of the ventricles. Paranasal sinuses: Visualized sinuses are unremarkable. No fluid levels. Mastoid air cells: Visualized mastoid air cells are well aerated. Bones: Unremarkable. No acute fracture. Soft tissues: Unremarkable. IMPRESSION: No acute intracranial posttraumatic changes. Dictated and Authenticated by: Vikram Olivera MD. Orderin Mallika Wilson MD
== END 2024-10-24 23:51 | disposition home or self-care (01) ==
PROVIDERS: Emergency Provider Emergency Medicine Emergency Medical Services; PCP Hospitalist
DX: S00.03XA Contusion of scalp, initial encounter (principal); S01.03XA Puncture wound without foreign body of scalp, initial encounter; W01.190A Fall on same level from slipping, tripping and stumbling with subsequent striking against furniture, initial encounter; Y93.89 Activity, other specified; Y92.013 Bedroom of single-family (private) house as the place of occurrence of the external cause
CPT/HCPCS: 99284; 70450

== ENCOUNTER 2025-01-05 17:51 | Emergency (ER) | payer MEDICARE, MEDICAID, SELFPAY ==
[2025-01-05 17:52] VITALS: BP 140/80; PULSE 66; RESP 18; TEMP 36.9; O2SAT 98
--- NOTE | 2025-01-05 18:15 | DI.CT_ITS ---
Exam(s) CT HEAD WO EXAM: CT HEAD WO CLINICAL HISTORY: head trauma. TECHNIQUE: Imaging Protocol: Axial computed tomography images with coronal and sagittal reformatted images were created and reviewed COMPARISON: CT CT HEAD WO from 10/24/2024 FINDINGS: There are no skull fractures. There is no fluid in the visualized paranasal sinuses. There is no evidence of intracranial hemorrhage, mass effect, or shift of midline structures. There are no extra-axial fluid collections. The ventricles are not enlarged or shifted and there is no blo od within the ventricular system nor within the basal cisterns. There is abundant bilateral periventricular hypodensity consistent with chronic small vessel disease, unchanged from previous. No evidence of new territorial infarct. Asymmetric calcifications again noted in the basal ganglia, unchanged. Incidentally noted is abnormal soft tissue density in the right middle ear cavity interposed between the malleus and cochlear promontory. Extends through the aditus ad antrum. Possible cholesteatoma IMPRESSION: No acute intracranial findings on this noninfused CT scan of the brain. Chronic small-vessel white matter ischemic changes again noted, as previously described on CT scan of 10/24/2024. Incidentally noted is right middle ear finding as described above which may represent an incidental c holesteatoma. Report called by myself to ER physician 01/05/2025 at 6:59 p.m. RADIATION DOSE DELIVERED: 881.88mGy.cm Total DLP DATA REPOSITORY: All CT scans at this facility are submitted to the National Radiology Data Registry (NRDR) Dose Index Registry (DIR) with the [employer] (ACR). RADIATION OPTIMIZATION: All CT scans at this facility use at least one of these dose optimization te chniques: automated exposure control; mA and/or kV adjustment per patient size (includes targeted exa ms where dose is matched to clinical indication); or iterative reconstruction.
--- NOTE | 2025-01-05 18:17 | W.ED.GENAD ---
Discharge Plan Disposition Patient Disposition: Home Condition: Improving Discharge Details Clinical Impression: Laceration of occipital scalp, Contusion of head Primary Care Provider: Richard Kinney ED Provider: Steve Tena Meds and New Rx's Prescriptions: Continued omeprazole magnesium 20 mg tablet,delayed release (DR/EC) 20 mg PO DAILY atenolol 25 mg tablet 25 mg PO BID levocetirizine 5 mg tablet 5 mg PO QHS esomeprazole magnesium 20 mg capsule,delayed release(DR/EC) 20 mg PO DAILY paroxetine HCl 30 mg tablet 30 mg PO DAILY primidone 50 mg tablet 100 mg PO BID buspirone 10 mg tablet 10 mg PO TID montelukast [Singulair] 10 mg tablet 10 mg PO DAILY Discharge Instructions Instructions: Minor Contusion ED Discharge Data Discharge Physician: Steve Tena HPI General Date/Time Provider Initiated Documentation: 01/05/25 18:17. HPI Narrative: Patient presents emergency department after she tripped and fell backwards sustaining trauma to the back of her head with significant bleeding. Denies any loss of consciousness denies any nausea denies vomiting denies any neck pain. Related Data Home Medications ?Medication ?Instructions ?Recorded ?Confirmed atenolol 25 mg tablet 25 mg PO BID 12/20/23 01/05/25 esomeprazole magnesium 20 mg 20 mg PO DAILY 12/20/23 01/05/25 capsule,delayed release levocetirizine 5 mg tablet 5 mg PO QHS 12/20/23 01/05/25 paroxetine HCl 30 mg tablet 30 mg PO DAILY 12/20/23 01/05/25 primidone 50 mg tablet 100 mg PO BID 12/20/23 01/05/25 buspirone 10 mg tablet 10 mg PO TID 05/23/24 01/05/25 montelukast 10 mg tablet 10 mg PO DAILY 05/23/24 01/05/25 (Singulair) omeprazole magnesium 20 mg 20 mg PO DAILY 11/16/24 01/05/25 tablet,delayed release Allergies Allergy/AdvReac Type Severity Reaction Status Date / Time Penicillins Allergy Mild Hives Verified 01/05/25 17:56 calcium carbonate Allergy Unknown OTHER Verified 01/05/25 17:56 clarithromycin Allergy Unknown PALPITATION Verified 01/05/25 17:56 S ergocalciferol (vitamin D2) Allergy Unknown OTHER Verified 01/05/25 17:56 (From Vitamin D2) levofloxacin Allergy Unknown OTHER Verified 01/05/25 17:56 losartan Allergy Unknown OTHER Verified 01/05/25 17:56 phytonadione (vitamin K1) Allergy Unknown Other (See Verified 01/05/25 17:56 Comment) aspirin Allergy Other (See Verified 01/05/25 17:56 Comment) General Stated Complaint: Fall/Non TraumaCriteria IDALMIS: 4 Review of Systems Narrative: Review of Systems: Constitutional: No fevers, chills, sweats Eye: No recent visual problems ENT: No ear pain, nasal congestion, sore throat Respiratory: No shortness of breath, cough Cardiovascular: No Chest pain, palpitations, syncope Gastrointestinal: No nausea, vomiting, diarrhea Genitourinary: No hematuria Godwin/Lymph: Negative for bruising tendency, swollen lymph glands Endocrine: Negative for excessive thirst, excessive hunger Musculoskeletal: No back pain, neck pain, joint pain, muscle pain, decreased range of motion Integumentary: No rash, pruritus, abrasions Neurologic: Alert & oriented X 4 Psychiatric: No anxiety, depression Exam Narrative Exam Narrative: Exam; vitals signs as reported above normal Constitutional; In no acute distress, afebrile General: cooperative, healthy appearing, comfortable and no acute distress HEENT: Head: normal to inspection, no palpable skull fracture and normocephalic 3 cm laceration in the occiput in her scalp Eyes: : appearance normal, both eyes and all related structures EOM intact bilaterally Pupils: PERRL : conjunctiva normal Direct ophthalmoscopy: normal light reflex, normal conjunctiva, normal visual acuity Ears: Normal TM, normal external canal Nose: normal no rhinorreha Neck no JVD, supple non tender Neck: normal visual inspection, full ROM and no lymphadenopathy Chest: normal inspection of the chest Respiratory : normal respiratory effort and able to speak in complete sentences no wheezing no rales Cardio Rate: regular rate, rhythm: regular rhythm normal heart sounds S1 and S2 no murmurs, gallops, or rubs GI : normal to inspection, normal bowel sounds, soft, non tender, non distended, no organomegaly Back/Spine/ no CVA tenderness Thoracic/Lumbar Spine: no tenderness or deformities Skin no rashes or lesions Neuro: patient alert oriented x 4 and no meningeal signs, Cranial Nerves: CN's II-XI intact bilaterally, Cognition: normal cognition, Speech: speech normal, Gait: normal gait, Depp tendon reflexes normal 2+ muscle strength 5/5 bilaterally Extremities, no edema, full range of motion, normal strength Course Vital Signs Vital signs: Vital Signs Temperature 36.9 C 01/05/25 17:52 Pulse 66 01/05/25 17:52 Respiratory Rate 18 01/05/25 17:52 Blood Pressure 140/80 01/05/25 17:52 Pulse Oximetry 98 01/05/25 17:52 Temperature 36.9 C 01/05/25 17:52 Temperature Source Temporal Artery Scan 01/05/25 17:52 Pulse 66 01/05/25 17:52 Respiratory Rate 18 01/05/25 17:52 Blood Pressure 140/80 01/05/25 17:52 Blood Pressure Position Sitting 01/05/25 17:52 Pulse Oximetry 98 01/05/25 17:52 Oxygen Delivery Method Room Air 01/05/25 17:52 Oxygen Flow Rate 0 01/05/25 17:52 Pain Level 7 01/05/25 17:52 Procedure Laceration Laceration 1: Date of Procedure: 01/05/25 Time of procedure: 22:23 Provider that performed the procedure: Steve Tena Standard Time Out Performed: Yes Patient Consented: Verbally Site: scalp Side (If applicable): left Description: linear Depth: simple, single layer Amount of anesthesia used (mL): 2 Pre-repair:: irrigated extensively Skin layer closed with: gertrude (3) Medical Decision Making MDM: Summary: Patient presents to the emergency department after she tripped falling backwards sustaining laceration to scalp. CT scan of the head was negative. She received let applied to the scalp and 3 gertrude were placed in the occiput repairing the laceration successfully. Patient will be discharged home Data Review Analysis All the data on this patient was reviewed by me including laboratory and imaging studies as well as bedside studies performed by me Independent review of Studies Imaging CT scan as reported above Lab: Risk Stratification: Patient with head trauma with no loss of conscious with a normal CT and the laceration that was repaired Differential Diagnosis: 1. Scalp laceration 2. Head contusion 3. Head concussion 4. Skull fracture 5. Consultants: Shared disposition: Patient assessed disposition and will be discharged home Impression: Imaging Data Radiologic Study: Attestation: I personally reviewed and interpreted this imaging study as follows: Imaging: X-Ray Radiologist's impression: Patient Name: Lindy Arias Unit #: [id number] Loc: ER Ordering Provider: Steve Tena M.D. Status: [facility] Primary Care Provider: Richard Kinney Date of Exam: 01/05/25 Sex: F : 1940 Age: 84 Exam(s) a CT:CT head wo Exam(s) CT HEAD WO EXAM: CT HEAD WO CLINICAL HISTORY: head trauma. TECHNIQUE: Imaging Protocol: Axial computed tomography images with coronal and sagittal reformatted images were created and reviewed COMPARISON: CT CT HEAD WO from 10/24/2024 FINDINGS: There are no skull fractures. There is no fluid in the visualized paranasal sinuses. There is no evidence of intracranial hemorrhage, mass effect, or shift of midline structures. There are no extra-axial fluid collections. The ventricles are not enlarged or shifted and there is no blood within the ventricular system nor within the basal cisterns. There is abundant bilateral periventricular hypodensity consistent with chronic small vessel disease, unchanged from previous. No evidence of new territorial infarct. Asymmetric calcifications again noted in the basal ganglia, unchanged. Incidentally noted is abnormal soft tissue density in the right middle ear cavity interposed between the malleus and cochlear promontory. Extends through the aditus ad antrum. Possible cholesteatoma IMPRESSION: No acute intracranial findings on this noninfused CT scan of the brain. Chronic small-vessel white matter ischemic changes again noted, as previously described on CT scan of 10/24/2024. Incidentally noted is right middle ear finding as described above which may represent an incidental cholesteatoma. Report called by myself to ER physician 01/05/2025 at 6:59 p.m. RADIATION DOSE DELIVERED: 881.88mGy.cm Total DLP DATA REPOSITORY: All CT scans at this facility are submitted to the National Radiology Data Registry (NRDR) Dose Index Registry (DIR) with the [employer] ([employer]). RADIATION OPTIMIZATION: All CT scans at this facility use at least one of these dose optimization techniques: automated exposure control; mA and/or kV adjustment per patient size (includes targeted exams where dose is matched to clinical indication); or iterative reconstruction. [id number]: Total DLP = 0.00 mGy-cm Ordered By: Steve Tena M.D. CC: Quality:SDOH Health Related Social Needs: No Data to Display PFSH All Active Problems (Updated 01/05/25 @ 22:26 by Steve Tena MD) Contusion of head (Acute) Laceration of occipital scalp (Acute) Family History Mother Dementia Father Cancer Brother Colon cancer COPD (chronic obstructive pulmonary disease) Social History Smoking/Tobacco Use Status: Never Smoking risk assessment performed?: Yes Alcohol Intake: never Substance use type: does not use Housing: house Do you feel safe at home: Yes Do you feel safe in your relationship?: Yes
[2025-01-05] MEDS: Lidocaine/Epinephri/Tetracaine Topical Gel 3 ML TP (20:04)
[2025-01-05 22:29] VITALS: BP 186/98; PULSE 75; RESP 20; TEMP 37; O2SAT 95
[2025-01-05 22:31] VITALS: BP 186/98; PULSE 75; RESP 20; O2SAT 95
== END 2025-01-05 22:32 | disposition home or self-care (01) ==
PROVIDERS: Emergency Provider Emergency Medicine Emergency Medical Services; PCP Hospitalist
DX: S01.01XA Laceration without foreign body of scalp, initial encounter (principal); S00.83XA Contusion of other part of head, initial encounter; W01.190A Fall on same level from slipping, tripping and stumbling with subsequent striking against furniture, initial encounter; Y93.89 Activity, other specified; Y92.013 Bedroom of single-family (private) house as the place of occurrence of the external cause
CPT/HCPCS: 12002; 99284; 70450

== ENCOUNTER 2025-01-12 15:18 | Emergency (ER) | payer MEDICARE, MEDICAID, SELFPAY ==
[2025-01-12 15:24] VITALS: BP 128/74; PULSE 67; RESP 18; TEMP 36.6; O2SAT 95
--- NOTE | 2025-01-12 15:33 | ED.GENADUL_ITS ---
Discharge Plan Disposition Patient Disposition: Home Condition: Stable Discharge Details Clinical Impression: Encounter for removal of gertrude Primary Care Provider: Richard Kinney ED Provider: Ingrid Costa Home Meds and New Rx's Prescriptions: No Action omeprazole magnesium 20 mg tablet,delayed release (DR/EC) 20 mg PO DAILY atenolol 25 mg tablet 25 mg PO BID levocetirizine 5 mg tablet 5 mg PO QHS esomeprazole magnesium 20 mg capsule,delayed release(DR/EC) 20 mg PO DAILY paroxetine HCl 30 mg tablet 30 mg PO DAILY primidone 50 mg tablet 100 mg PO BID buspirone 10 mg tablet 10 mg PO TID montelukast [Singulair] 10 mg tablet 10 mg PO DAILY Discharge Instructions Instructions: Staple Removal Additional Instructions: You were seen in the emergency department today for removal of gertrude. The wound on your head is healing very nicely, you should continue to keep the area clean and dry, be gentle when shampooing and rinsing, but it is okay for you to apply your psoriasis ointment around that area. You may notice that the scab comes off in the next few days and this is perfectly normal. Please follow-up with your primary care provider in the next few days to discuss this visit and any symptoms that change, worsen, or persist. Thank you for allowing us to be part of your care. HPI General Mode of arrival: ambulatory . Date/Time Provider Initiated Documentation: 01/12/25 15:25 . Limitations to Documentation: no limitations . Information obtained by: patient, family and old records reviewed . HPI Narrative: This is an 84-year-old female patient presenting to the emergency department for staple removal. On the of this month she sustained a fall with an occipital laceration, had 3 gertrude placed. She states that since that event her head has been healing appropriately, though she states she has been avoiding using her scalp medication around that area. She has otherwise been in her normal state of health, and has no acute concerns today. She is accompanied by her family member Related Data Home Medications ?Medication ?Instructions ?Recorded ?Confirmed atenolol 25 mg tablet 25 mg PO BID 12/20/23 01/05/25 esomeprazole magnesium 20 mg 20 mg PO DAILY 12/20/23 01/05/25 capsule,delayed release levocetirizine 5 mg tablet 5 mg PO QHS 12/20/23 01/05/25 paroxetine HCl 30 mg tablet 30 mg PO DAILY 12/20/23 01/05/25 primidone 50 mg tablet 100 mg PO BID 12/20/23 01/05/25 buspirone 10 mg tablet 10 mg PO TID 05/23/24 01/05/25 montelukast 10 mg tablet 10 mg PO DAILY 05/23/24 01/05/25 (Singulair) omeprazole magnesium 20 mg 20 mg PO DAILY 11/16/24 01/05/25 tablet,delayed release Allergies Allergy/AdvReac Type Severity Reaction Status Date / Time Penicillins Allergy Mild Hives Verified 01/05/25 17:56 calcium carbonate Allergy Unknown OTHER Verified 01/05/25 17:56 clarithromycin Allergy Unknown PALPITATION Verified 01/05/25 17:56 S ergocalciferol (vitamin D2) Allergy Unknown OTHER Verified 01/05/25 17:56 (From Vitamin D2) levofloxacin Allergy Unknown OTHER Verified 01/05/25 17:56 losartan Allergy Unknown OTHER Verified 01/05/25 17:56 phytonadione (vitamin K1) Allergy Unknown Other (See Verified 01/05/25 17:56 Comment) aspirin Allergy Other (See Verified 01/05/25 17:56 Comment) General Stated Complaint: SutureRem IDALMIS: 5 Exam Narrative Exam Narrative: Gen: Awake and alert, in no apparent distress HEENT: Non-icteric sclera, scalp with and approximately 2 to 3 cm laceration left occipital region, with [address], well-approximated and healing with no surrounding redness, induration, drainage or fluctuance. Neck: Supple Lungs: No apparent respiratory distress, normal respiratory effort. CV: Appears well perfused Abdomen: Non-distended MSK: Moves 4 extremities without apparent limitation in ROM Skin: Visualized skin without rashes, cyanosis. Neuro: Normal Gait with walker, no obvious focal deficits or facial asymmetry. Speaks in full, clear sentences. Psych: Appropriate for situation. Course Vital Signs Vital signs: Vital Signs Temperature 36.6 C 01/12/25 15:24 Pulse 67 01/12/25 15:24 Respiratory Rate 18 01/12/25 15:24 Blood Pressure 128/74 01/12/25 15:24 Pulse Oximetry 95 01/12/25 15:24 Temperature 36.6 C 01/12/25 15:24 Temperature Source Oral 01/12/25 15:24 Pulse 67 01/12/25 15:24 Respiratory Rate 18 01/12/25 15:24 Blood Pressure 128/74 01/12/25 15:24 Blood Pressure Position Sitting 01/12/25 15:24 Pulse Oximetry 95 01/12/25 15:24 Oxygen Delivery Method Room Air 01/12/25 15:24 Oxygen Flow Rate 0 01/12/25 15:24 Medical Decision Making This is an 84-year-old female patient presenting for evaluation of staple removal. The wound is well-healing and approximated, I note no evidence for skin or soft tissue infection such as cellulitis or abscess on my physical examination. She is systemically well. 3 gertrude were removed from her occipital region with staple remover, patient tolerated the procedure very well. She was counseled on ongoing management of the healing wound including gentle cleansing, avoidance of the exact area with her topical scalp creams until it is fully healed. At this time, the patient has had a full medical evaluation and is safe for discharge to home. They are hemodynamically stable, ambulatory, and tolerating PO. They are understanding of the follow-up plan and return precautions. They left our facility without incident. Ingrid Costa MD Quality:SDOH Health Related Social Needs: No Data to Display PFSH All Active Problems (Updated 01/12/25 @ 15:33 by Ingrid Costa MD) Encounter for removal of gertrude (Acute) Contusion of head (Acute) Laceration of occipital scalp (Acute) Family History Mother Dementia Father Cancer Brother Colon cancer COPD (chronic obstructive pulmonary disease) Social History Smoking/Tobacco Use Status: Never Smoking risk assessment performed?: Yes Alcohol Intake: never Substance use type: does not use Housing: house Do you feel safe at home: Yes Do you feel safe in your relationship?: Yes
== END 2025-01-12 15:43 | disposition home or self-care (01) ==
PROVIDERS: Emergency Provider Emergency Medicine; PCP Hospitalist
DX: Z48.02 Encounter for removal of sutures (principal)

== ENCOUNTER 2025-02-21 07:26 | Outpatient (CLI) | payer MEDICARE, MEDICAID, SELFPAY ==
--- NOTE | 2025-02-21 13:16 | DI.RAD_ITS ---
Exam(s) XR HIP RT COMPLETE AP PELVIS EXAM: XR HIP RT COMPLETE AP PELVIS CLINICAL HISTORY: PAIN IN HIP,M25.559. TECHNIQUE: 2D digital imaging was performed. Two views COMPARISON: No exams were available for comparison FINDINGS: BONES: No acute fracture is present. No bony destructive lesion is seen. Enthesophytes are noted at the iliac wings and greater trochanters. JOINTS: No dislocation present. The hip joint spaces are maintained. There is mild superior acetabular spurring, greater on the left. Degenerative changes are noted at the SI joints, greater on the left. SOFT TISSUE: Normal. IMPRESSION: No acute abnormality. 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 DATA REPOSITORY: RADIATION DOSE DELIVERED:
== END 2025-02-21 07:46 ==
PROVIDERS: PCP Hospitalist; Visit Provider Physician Assistant
DX: M25.551 Pain in right hip (principal)
CPT/HCPCS: 73502

== ENCOUNTER 2025-02-28 18:19 | Outpatient (REF) | payer MEDICARE, MEDICAID, SELFPAY ==
[2025-02-28 12:32] LABS: Glucose Negative (Negative)
[2025-02-28 12:46] LABS: RBC Negative HPF (0-2); WBC 20-50 HPF (0-5)
== END 2025-02-28 18:20 | disposition home or self-care (01) ==
LOC: LBN 18:19
PROVIDERS: PCP Hospitalist; Visit Provider Hospitalist
DX: N39.0 Urinary tract infection, site not specified (principal); R82.89 Other abnormal findings on cytological and histological examination of urine
CPT/HCPCS: 81003; 81015; 87086

== ENCOUNTER 2025-03-08 16:43 | Emergency (ER) | payer MEDICARE, MEDICAID, SELFPAY ==
[2025-03-08 16:46] VITALS: BP 153/86; PULSE 63; RESP 18; TEMP 37; O2SAT 95
--- NOTE | 2025-03-08 16:52 | W.ED.GENAD ---
Discharge Plan Disposition Patient Disposition: Home Condition: Stable Discharge Details Clinical Impression: Accident due to mechanical fall without injury Primary Care Provider: Richard Kinney ED Provider: Sudheer Montero Home Meds and New Rx's Prescriptions: Continued omeprazole magnesium 20 mg tablet,delayed release (DR/EC) 20 mg PO DAILY topiramate 50 mg tablet 50 mg PO DAILY nitrofurantoin monohyd/m-cryst 100 mg capsule 100 mg PO BID Patient Comments: TAKE ONE CAPSULE BY MOUTH TWICE A DAY FOR 7 DAYS WITH A MEAL/FOOD atenolol 25 mg tablet 25 mg PO BID levocetirizine 5 mg tablet 5 mg PO QHS esomeprazole magnesium 20 mg capsule,delayed release(DR/EC) 20 mg PO DAILY paroxetine HCl 30 mg tablet 30 mg PO DAILY primidone 50 mg tablet 100 mg PO BID buspirone 10 mg tablet 10 mg PO TID montelukast [Singulair] 10 mg tablet 10 mg PO DAILY Discharge Instructions Instructions: Preventing falls in adults Additional Instructions: You were seen in the emergency department for your mothers mechanical fall without major injury, her head and neck scan are within normal limits with no intracranial bleeding, no cervical spinal fracture, the pain to the left lateral side of her neck is likely musculoskeletal in nature, no please use Tylenol and ibuprofen for these areas apply gentle heat to the area or an [id number] lidocaine patch, her blood work shows no signs of infection, or electrolyte abnormality. 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 Stevens's office for definitive management of this problem. Please return to the emergency department for any increasing fever, altered mentation, increasing falls or any other emergent concerns. Referrals: Richard Kinney [Primary Care Provider, Medicine] Discharge Data Discharge Date/Time-TO BE ENTERED AT DEPARTURE: 03/08/25 19:15 HPI General Date/Time Provider Initiated Documentation: 03/08/25 16:47. HPI Narrative: 84 year-old female presents to ED today by EMS with a chief complaint of mechanical fall at home tripping over a cushion with a head strike to the left frontal scalp and endorses left neck pain with onset just prior to arrival. Quality described as mild headache left lateral neck pain, denies LOC or dizziness, no radiation to slurred speech, altered mentation, nausea/vomiting, altered mentation per son. Severity is described as mild to moderate. Palliating factors include nothing specific attempted. Provoking factors include nothing specific. Patient not anticoagulated. Related Data Home Medications ?Medication ?Instructions ?Recorded ?Confirmed atenolol 25 mg tablet 25 mg PO BID 12/20/23 03/08/25 esomeprazole magnesium 20 mg 20 mg PO DAILY 12/20/23 03/08/25 capsule,delayed release levocetirizine 5 mg tablet 5 mg PO QHS 12/20/23 03/08/25 paroxetine HCl 30 mg tablet 30 mg PO DAILY 12/20/23 03/08/25 primidone 50 mg tablet 100 mg PO BID 12/20/23 03/08/25 buspirone 10 mg tablet 10 mg PO TID 05/23/24 01/05/25 montelukast 10 mg tablet 10 mg PO DAILY 05/23/24 03/08/25 (Singulair) omeprazole magnesium 20 mg 20 mg PO DAILY 11/16/24 03/08/25 tablet,delayed release topiramate 50 mg tablet 50 mg PO DAILY 03/06/25 03/08/25 nitrofurantoin 100 mg PO BID 03/08/25 03/08/25 monohydrate/macrocrystals 100 mg capsule Allergies Allergy/AdvReac Type Severity Reaction Status Date / Time Penicillins Allergy Mild Hives Verified 03/08/25 16:49 calcium carbonate Allergy Unknown OTHER Verified 03/08/25 16:49 clarithromycin Allergy Unknown PALPITATION Verified 03/08/25 16:49 S ergocalciferol (vitamin D2) Allergy Unknown OTHER Verified 03/08/25 16:49 (From Vitamin D2) levofloxacin Allergy Unknown OTHER Verified 03/08/25 16:49 losartan Allergy Unknown OTHER Verified 03/08/25 16:49 phytonadione (vitamin K1) Allergy Unknown Other (See Verified 03/08/25 16:49 Comment) aspirin Allergy Other (See Verified 03/08/25 16:49 Comment) General Stated Complaint: Nk/Back Pain IDALMIS: 3 Review of Systems All systems reviewed & are unremarkable except as noted in HPI and below Exam Narrative Exam Narrative: GENERAL APPEARANCE: Well-nourished, non-toxic, awake and alert, atraumatic, no acute distress. SKIN: Warm, pink, dry, intact, without rashes/lesions/ulcerations. HEAD: Normocephalic, atraumatic- pinkish caron on L forehead from minor headstrike, no hematoma, normal hair distribution for gender/age. EYES: Normal conjunctiva, no exudates on lids/lashes. ENT: Nares patent, no circumoral cyanosis, no facial swelling NECK: Supple, trachea midline, painless cervical ROM, mild L lateral neck tenderness in trapezius muscle, no midline cervical vertebral tenderness LUNGS/CHEST: Lungs CTA bilaterally- no rhonchi/rales/wheezes diffusely, non-labored respirations, normal A/P diameter, symmetrical expansion, no chest wall deformity HEART (CV/PV): Regular rate and rhythm without murmur, no peripheral edema, no JVD. ABDOMEN: Soft, non-distended, no guarding, no tenderness. MSK: Normal ROM, no swelling/deformity to bilateral UEs or LEs, moving all extremities without weakness, no cyanosis, spine midline without tenderness, normal curvature. NEURO: Mental Status acting at her baseline dementia per son No facial droop, no forehead involvement. Motor: No focal weakness - strength 5/5 in bilateral UEs and LEs, proximal and distal, symmetric. Sensory: sensation intact to light touch globally. Gait normal: patient ambulated without ataxia into ED room. PSYCH: euthymic, cooperative, pleasant, appropriate speech Course Vital Signs Vital signs: Vital Signs Temperature 37.0 C 03/08/25 16:46 Pulse 63 03/08/25 16:46 Respiratory Rate 18 03/08/25 16:46 Blood Pressure 153/86 H 03/08/25 16:46 Pulse Oximetry 95 03/08/25 16:46 Temperature 37.0 C 03/08/25 16:46 Temperature Source Oral 03/08/25 16:46 Pulse 63 03/08/25 16:46 Respiratory Rate 18 03/08/25 16:46 Blood Pressure 153/86 H 03/08/25 16:46 Pulse Oximetry 95 03/08/25 16:46 Medical Decision Making This dictation utilizes [id number] dictation software and may contain unedited grammatical errors. 84 year-old female presents to ED today by EMS with a chief complaint of mechanical fall at home tripping over a cushion with a head strike to the left frontal scalp and endorses left neck pain with onset just prior to arrival. Quality described as mild headache left lateral neck pain, denies LOC or dizziness, no radiation to slurred speech, altered mentation, nausea/vomiting, altered mentation per son. Severity is described as mild to moderate. Palliating factors include nothing specific attempted. Provoking factors include nothing specific. Patients' medical history: Dementia. Family and social history: Noncontributory. Pertinent exam findings / vital signs include minor left frontal caron from falling forehead, left lateral palpable cervical muscle tension, no midline vertebral tenderness/crepitus/step-offs, neurovascular intact diffusely, answering questions appropriately at her baseline dementia, benign cardiopulmonary exam, benign abdomen. Differential / pathologies of concern include mechanical fall, concussion syndrome, ICH, cervical fracture, muscle strain. Diagnostic studies of: - CT head and C-spine without, CBC, CMP. - CT shows no ICH, shows no cervical fracture - Laboratory studies benign Interventions of: -None. ED Course/Assessment/Plan: 84-year-old female had a trip and fall over condition at home landing on her anterior face as minor forehead contusion and left lateral neck pain, CTs are negative for any injury and she is behaving appropriately, no medical cause for the fall states she merely tripped, she is not on blood thinners and is relatively healthy overall, discharged home with strict return criteria for any acute decompensation or altered mentation. Findings not consistent with ICH, cervical fracture. Disposition of accident due to mechanical fall without injury. Patient verbalized understanding of the plan and return to ED criteria and engaged in shared decision making. Medical Records Medical records reviewed: Yes I reviewed the patient's medical records. Imaging Data Radiologic Study: Attestation: I personally reviewed and interpreted this imaging study as follows: Imaging: CT Scan Radiologist's impression: EXAM: CT HEAD CERVICAL SPINE WO CLINICAL HISTORY: trip fall, L posterior head and L lateral neck. TECHNIQUE: Imaging Protocol: Axial computed tomography images with coronal and sagittal reformatted images were created and reviewed COMPARISON: CT CT HEAD WO from 01/05/2025 FINDINGS: BRAIN: There are no skull fractures nor fluid in the visualized paranasal sinuses. There is no evidence of intracranial hemorrhage, mass effect, or shift of midline structures. There are no extra-axial fluid collections. The ventricles are not enlarged or shifted and there is no blood within the ventricular system nor within the basal cisterns. Again noted is abundant bilateral periventricular hypodensity consistent with chronic small vessel disease. Calcification in the basal ganglia again noted, unchanged. Also again noted is the previously described soft tissue density in the right middle ear cavity interposed between the malleus and the cochlear promontory and extending through the aditus ad antrum into the mastoid air cells, unchanged. Possibly cholesteatoma. CERVICAL SPINE: There is no evidence of fracture nor listhesis. No significant prevertebral soft tissue swelling. There is some disc space narrowing at multiple levels of all small bilateral Luschka joint osteophytes. There is some mild facet arthropathy. There is no significant facet joint malalignment. No significant osseous lesions evident. IMPRESSION: No acute intracranial findings on this noninfused CT scan of the brain.Chronic small-vessel white matter ischemic changes again noted as previously described on prior CT scans. Incidentally noted is right middle ear finding as described above which may represent incidental cholesteatoma. No evidence of cervical spine fracture, malalignment, nor acute compromise of the cervical spinal canal. Lab Data Lab results reviewed: Yes I reviewed the patient's lab results. Labs: Laboratory Tests Range/Units 03/08/25 17:05 WBC (4.4-10.8) 10^3/uL 8.33 RBC (3.93-5.22) 10^6/uL 4.44 Hgb (11.2-15.7) g/dL 14.0 Hct (36.0-46.0) % 41.0 MCV (80-95) fL 92 MCH (27.0-33.0) pg 31.5 MCHC (32.0-36.0) % 34.1 RDW (11.7-14.6) % 12.8 Plt Count (130-400) 10^3/uL 269 MPV (8.0-11.0) fL 10.1 Immature Gran % % 0.2 Neutrophils % % 66.1 Lymphocytes % % 21.1 Monocytes % % 8.3 Eosinophils % % 3.5 Basophils % % 0.8 Nucleated RBC % (0.0-0.3) % 0.0 Absolute Neutrophils (1.2-6.7) 10^3/uL 5.50 Absolute Lymphocytes (1.2-3.4) 10^3/uL 1.76 Absolute Monocytes (0.1-0.8) 10^3/uL 0.69 Absolute Eosinophils (0.0-0.7) 10^3/uL 0.29 Absolute Basophils (0.0-0.2) 10^3/uL 0.07 Sodium (136-145) mmol/L 141 Potassium (3.5-5.1) mmol/L 3.8 Chloride (98-107) mmol/L 103 Carbon Dioxide (21.0-32.0) mmol/L 27.2 Anion Gap (3-11) mmol/L 10.8 BUN (7-18) mg/dL 13 Creatinine (0.55-1.02) mg/dL 0.7 Est GFR (CKD-EPI 2020) (mL/min/1.73m2) 86.30 Glucose (74-106) mg/dL 108 H Calcium (8.5-10.1) mg/dL 9.2 Total Bilirubin (0.2-1.0) mg/dL 0.3 AST (15-37) U/L 21 ALT (14-59) U/L 29 Alkaline Phosphatase (46-116) U/L 77 Total Protein (6.4-8.2) g/dL 7.4 Albumin (3.4-5.0) g/dL 3.3 L PFSH All Active Problems (Updated 03/08/25 @ 18:31 by LATOYA Sharma) Accident due to mechanical fall without injury (Acute) Medical History (Updated 03/08/25 @ 18:31 by LATOYA Sharma) OAB (overactive bladder) Dementia Anxiety Mild cognitive impairment Obesity Depression Hypothyroidism Family History Mother Dementia Father Cancer Brother Colon cancer COPD (chronic obstructive pulmonary disease) Social History Smoking/Tobacco Use Status: Never Smoking risk assessment performed?: Yes Alcohol Intake: never Substance use type: does not use Housing: house Do you feel safe at home: Yes Do you feel safe in your relationship?: Yes
--- NOTE | 2025-03-08 16:57 | DI.CT_ITS ---
Exam(s) CT HEAD CERVICAL SPINE WO EXAM: CT HEAD CERVICAL SPINE WO CLINICAL HISTORY: trip fall, L posterior head and L lateral neck. TECHNIQUE: Imaging Protocol: Axial computed tomography images with coronal and sagittal reformatted images were created and reviewed COMPARISON: CT CT HEAD WO from 01/05/2025 FINDINGS: BRAIN: There are no skull fractures nor fluid in the visualized paranasal sinuses. There is no evidence of intracranial hemorrhage, mass effect, or shift of midline structures. There are no extra-axial fluid collections. The ventricles are not enlarged or shifted and there is no blood within the ventricular system nor within the basal cisterns. Again noted is abundant bilateral periventricular hypodensity consistent with chronic small vessel disease. Calcification in the basal ganglia again noted, unchanged. Also again noted is the previously described soft tissue density in the right middle ear cavity interposed between the malleus and the cochlear promontory and extending through the aditus ad antrum into the mastoid air cells, unchanged. Possibly cholesteatoma. CERVICAL SPINE: There is no evidence of fracture nor listhesis. No significant prevertebral soft tissue swelling. There is some disc space narrowing at multiple levels of all small bilateral Luschka joint osteophytes. There is some mild facet arthropathy. There is no significant facet joint malalignment. No significant osseous lesions evident. IMPRESSION: No acute intracranial findings on this noninfused CT scan of the brain.Chronic small-vessel white matter ischemic changes again noted as previously described on prior CT scans. Incidentally noted is right middle ear finding as described above which may represent incidental cholesteatoma. No evidence of cervical spine fracture, malalignment, nor acute compromise of the cervical spinal canal. Report called by myself to ER provider 03/08/2025 at 6:01 p.m. RADIATION DOSE DELIVERED: 1,398.52mGy.cm Total DLP DATA REPOSITORY: All CT scans at this facility are submitted to the National Radiology Data Registry (NRDR) Dose Index Registry (DIR) with the [employer] ([employer]). RADIATION OPTIMIZATION: All CT scans at this facility use at least one of these dose optimization techniques: automated exposure control; mA and/or kV adjustment per patient size (includes targeted exams where dose is matched to clinical indication); or iterative reconstruction.
[2025-03-08 17:01] VITALS: BP 170/87; PULSE 62; RESP 15; O2SAT 93
[2025-03-08 17:16] VITALS: BP 171/79; PULSE 61; RESP 16; O2SAT 87
[2025-03-08 17:27] LABS: Abs Immature Grans 0.02 10^3/uL (0.0-0.06); HCT 41.0 % (36.0-46.0); HGB 14.0 g/dL (11.2-15.7); Immature Grans % 0.2 %; MCH 31.5 pg (27.0-33.0); MCHC 34.1 % (32.0-36.0); MCV 92 fL (80-95); MPV 10.1 fL (8.0-11.0); Platelet Count 269 10^3/uL (130-400); RBC 4.44 10^6/uL (3.93-5.22); RDW 12.8 % (11.7-14.6); RDW-SD 43.7 fL; WBC 8.33 10^3/uL (4.4-10.8)
[2025-03-08 17:46] VITALS: PULSE 65; RESP 16
[2025-03-08 17:50] VITALS: PULSE 62; RESP 13; O2SAT 94
[2025-03-08 17:50] LABS: ALT 29 U/L (14-59); AST 21 U/L (15-37); Albumin 3.3 g/dL (3.4-5.0); Alkaline Phosphatase 77 U/L (46-116); Anion Gap 10.8 mmol/L (3-11); BUN 13 mg/dL (7-18); Bilirubin, Total 0.3 mg/dL (0.2-1.0); CO2 27.2 mmol/L (21.0-32.0); Calcium 9.2 mg/dL (8.5-10.1); Chloride 103 mmol/L (98-107); Estimated GFR 86.30 (mL/min/1.73m2); Glucose 108 mg/dL (74-106); Potassium 3.8 mmol/L (3.5-5.1); Sodium 141 mmol/L (136-145); Total Protein 7.4 g/dL (6.4-8.2)
== END 2025-03-08 19:15 | disposition home or self-care (01) ==
PROVIDERS: Emergency Provider Physician Assistant; PCP Hospitalist
DX: M54.2 Cervicalgia (principal); F03.90 Unspecified dementia, unspecified severity, without behavioral disturbance, psychotic disturbance, mood disturbance, and anxiety; W18.39XA Other fall on same level, initial encounter
CPT/HCPCS: 80053; 99284; 70450; 72125; 85025

== ENCOUNTER → 2025-03-20 10:36 | Outpatient (BNVA) | payer MEDICARE, MEDICAID, SELFPAY | PROVIDERS: PCP Hospitalist; Referring Provider Hospitalist; Visit Provider Psychiatry & Neurology Neurology | DX: F03.90 Unspecified dementia, unspecified severity, without behavioral disturbance, psychotic disturbance, mood disturbance, and anxiety (principal); F25.0 Schizoaffective disorder, bipolar type; R26.89 Other abnormalities of gait and mobility; E53.8 Deficiency of other specified B group vitamins | CPT/HCPCS: 99215; G2212; 36415; 82607 ==

== ENCOUNTER 2025-03-20 12:11 | Outpatient (CLI) | payer MEDICARE, MEDICAID, SELFPAY ==
[2025-03-20 13:32] LABS: Vitamin B12 485 pg/mL (193-986)
== END 2025-03-20 12:12 | disposition home or self-care (01) ==
LOC: LBO 12:12
PROVIDERS: PCP Hospitalist; Visit Provider Psychiatry & Neurology Neurology
DX: E53.8 Deficiency of other specified B group vitamins (principal)
CPT/HCPCS: 36415; 82607

== ENCOUNTER 2025-03-21 20:24 | Observation (INO) | payer MEDICARE, MEDICAID, SELFPAY ==
[2025-03-21 20:28] VITALS: BP 169/94; PULSE 68; RESP 14; TEMP 37.6; O2SAT 95
--- NOTE | 2025-03-21 20:45 | DI.CT_ITS ---
Exam(s) CT BRAIN NECK CTA EXAM: CT BRAIN NECK CTA CLINICAL HISTORY: Frequent Falls, Dysphasia, Head lac. TECHNIQUE: Imaging Protocol: Axial CT angiography was performed with multi- slice acquisition and multi-planar and MIP reconstructions. CONTRAST MATERIAL: Intravenous: Omnipaque 350 Contrast volume:100 ml COMPARISON: CT CT HEAD CERVICAL SPINE WO from 03/08/2025 FINDINGS: CT Head W/O and W contrast: Ventricles and Extra axial spaces: Normal in size and morphology for the patient's age. Hemorrhage: None. Cerebral parenchyma: No evidence of acute infarct or mass. Prominent patchy areas of low density in the white matter consistent with chronic microvascular ischemia. Stable from prior. Midline shift: None. Brainstem/Cerebellum: No acute findings.. Calvarium: Normal. Visualized Paranasal sinuses: Clear. Mastoids: Right mastoid effusion again noted. Stable appearance fluid noted in the middle ear and aditus ad antrum. Soft Tissues: Unremarkable. Enhancement: Normal. Venous sinuses are patent. CTA Brain W: Internal Carotid Arteries: Right: No aneurysm, occlusion or significant stenosis. Left: No aneurysm, occlusion or significant stenosis. Middle Cerebral Arteries: Right: No aneurysm, occlusion or significant stenosis. Left: No aneurysm, occlusion or significant stenosis. Anterior Cerebral Arteries: Right: No aneurysm, occlusion or significant stenosis. Left: No aneurysm, occlusion or significant stenosis. Posterior cerebral Arteries: Right: No aneurysm, occlusion or significant stenosis. Left: No aneurysm, occlusion or significant stenosis. Vertebral Arteries: Right: No aneurysm, occlusion or significant stenosis. Left: No aneurysm, occlusion or significant stenosis. Basilar Artery: No aneurysm, occlusion or significant stenosis. CTA Neck W: Common Carotid: Tortuous proximally. Right: No dissection, occlusion or significant stenosis. Left: Small focus of calcific plaque at the bulb. No dissection, occlusion or significant stenosis. External Carotid: Right: No dissection, occlusion or significant stenosis. Left: No dissection, occlusion or significant stenosis. Internal Carotid: Right: No dissection, occlusion or significant stenosis. Left: No dissection, occlusion or significant stenosis. Vertebral Artery: Right: No dissection, occlusion or significant stenosis. Left: No dissection, occlusion or significant stenosis. Lung Apices: No acute findings. Bones: No acute abnormality. Soft Tissues: Normal. IMPRESSION: 1. CTA brain: Normal CTA examination of the [place]. 2. Head CT: Severe microvascular changes of the white matter. No acute abnormality. 3. CTA neck: No evidence of occlusion, significant stenosis or dissection. The preliminary [facility] report was reviewed. RADIATION DOSE DELIVERED: 2,292.93mGy.cm Total DLP DATA REPOSITORY: All CT scans at this facility are submitted to the National Radiology Data Registry (NRDR) Dose Index Registry (DIR) with the [employer] ([employer]). RADIATION OPTIMIZATION: All CT scans at this facility use at least one of these dose optimization techniques: automated exposure control; mA and/or kV adjustment per patient size (includes targeted exams where dose is matched to clinical indication); or iterative reconstruction.
--- NOTE | 2025-03-21 20:45 | DI.RAD_ITS ---
Exam(s) XR CHEST 1V IN DI DEPT EXAM: XR CHEST 1V IN DI DEPT CLINICAL HISTORY: Fall TECHNIQUE: 2D digital imaging was performed. COMPARISON: No exams were available for comparison FINDINGS: Exam is limited by suboptimal pulmonary inflation. LUNGS: Increased interstitial markings. Pulmonary vascular prominence. No definite focal infiltrate however left basilar infiltrate is not excluded due to technique. No pleural abnormality seen. HEART: Normal size. AORTA: Normal diameter. BONES: Unremarkable for age. No grossly displaced rib fracture. The shoulder show degenerative changes. The spine is mostly obscured. Soft tissues: Unremarkable. IMPRESSION: increased interstitial markings and pulmonary and vascular prominence could indicate mild CHF however the findings could also be secondary to poor pulmonary inflation. Clinical correlation is recommended. No grossly displaced rib fracture is identified. The preliminary [facility] report was reviewed. DATA REPOSITORY: RADIATION DOSE DELIVERED:
--- NOTE | 2025-03-21 20:45 | RT.EKG_ITS ---
APPROVED REPORT Exam: Resting ECG Reason for Exam: Fall, Head injury Patient Location: E HR:65 bpm ECG Measurements Heart Rate 65 AXIS IA 202 P 21 QRSd 95 QRS -6 QT 426 T 5 QTc 444 Conclusion Sinus rhythm...normal P axis, V-rate 60- 99 Low voltage, precordial leads...precordial leads <1.0mV Sinus Rhythm. No prior for comparrison. WD
--- NOTE | 2025-03-21 21:00 | W.ED.GENAD ---
Discharge Plan Disposition Patient Disposition: Admit to [facility] Condition: Stable Discharge Details Clinical Impression: Frequent falls, Laceration of occipital scalp, Cognitive decline Primary Care Provider: Richard Kinney ED Provider: Kaila Ndiaye Home Meds and Marcin Rx's Prescriptions: No Action omeprazole magnesium 20 mg tablet,delayed release (DR/EC) 20 mg PO DAILY topiramate 50 mg tablet 50 mg PO DAILY atenolol 25 mg tablet 25 mg PO BID primidone 50 mg tablet 100 mg PO BID montelukast [Singulair] 10 mg tablet 10 mg PO DAILY paroxetine HCl 40 mg tablet 30 mg PO DAILY HPI General Mode of arrival: EMS. Date/Time Provider Initiated Documentation: 03/21/25 20:29. Limitations to Documentation: physical limitation (Hard of hearing). Information obtained by: patient, family, EMS, RN notes reviewed and old records reviewed. HPI Narrative: 84-year-old female presents to the ER accompanied by EMS and family chief complaint of fall with a head lack to her occiput little scalp. Per family report she was seen in [place] in [place] in the emergency department today earlier after an ENT appointment where she began having garbled speech and dysphagia not acting herself. They did a CT at that time and discharged her home. Upon arriving home which she was put in bed by her family and they heard a crash found her on the floor and agonal breathing. She presents alert and oriented, no gross motor or focal neurodeficits noted. She does have approximately 1 and half centimeter laceration to the back of her head. They also report that she is fallen 7 times over the weekend. No pronator drift, intact dorsiflexion and pedal flexion, she does have slightly weaker left lower extremity 4 out of 5 with elevation. Related Data Home Medications ?Medication ?Instructions ?Recorded ?Confirmed atenolol 25 mg tablet 25 mg PO BID 12/20/23 03/21/25 primidone 50 mg tablet 100 mg PO BID 12/20/23 03/21/25 montelukast 10 mg tablet 10 mg PO DAILY 05/23/24 03/21/25 (Singulair) omeprazole magnesium 20 mg 20 mg PO DAILY 11/16/24 03/21/25 tablet,delayed release topiramate 50 mg tablet 50 mg PO DAILY 07/14/25 07/29/25 paroxetine HCl 40 mg tablet 30 mg PO DAILY 03/21/25 03/21/25 Allergies Allergy/AdvReac Type Severity Reaction Status Date / Time Penicillins Allergy Mild Hives Verified 03/21/25 20:36 calcium carbonate Allergy Unknown OTHER Verified 03/21/25 20:36 clarithromycin Allergy Unknown PALPITATION Verified 03/21/25 20:36 S ergocalciferol (vitamin D2) Allergy Unknown OTHER Verified 03/21/25 20:36 (From Vitamin D2) levofloxacin Allergy Unknown OTHER Verified 03/21/25 20:36 losartan Allergy Unknown OTHER Verified 03/21/25 20:36 phytonadione (vitamin K1) Allergy Unknown Other (See Verified 03/21/25 20:36 Comment) aspirin Allergy Other (See Verified 03/21/25 20:36 Comment) General Stated Complaint: Laceration IDALMIS: 3 Review of Systems All systems reviewed & are unremarkable except as noted in HPI and below Constitutional Constitutional: Reports as per HPI, Reports frequent falls, Reports headache(s) and Reports weakness ENT Ears, Nose, Mouth, and Throat: Reports as per HPI and Reports headache(s) Integumentary/Breasts Skin/Breast: Reports wounds (Posterior occipital scalp) Neurologic Neurologic: Reports as per HPI, Reports abnormal speech, Reports confusion, Reports frequent falls, Reports headache(s), Reports memory loss and Reports weakness Psychiatric Psychiatric: Reports confusion and Reports memory loss Exam Narrative Exam Narrative: General: Well Developed, Awake and Alert, conversant. Skin: Warm and Dry HEENT: Head: No palpable deformities, Normocephalic approximately 2 and half centimeter vertical laceration noted to her posterior scalp. No step-off crepitus or depressed skull fracture palpated. Eyes: Pupils PERRLA, EOM's intact. No periorbital eccymosis or step off Ears: Canal patent. Tympanic membranes are clear . No lopez's sign, no hemptympanum. Nose/Face: Atraumatic. Facial bones nontender to palpation and stable with manipulation. Mouth/Throat: No intraoral trauma. Teeth and mandible are intact. Neck: No midline tenderness, no step off, no deformity to palpation of C-spine. Trachea midline. Chest: No surface trauma. Nontender without crepitus or deformity. Lungs clear to ausculatation bilaterally. Heart: RRR, no rubs, murmurs or gallop. Abdomen: No abrasions, ecchymosis, or surface trauma. Nondistended. Nontender to palpation no guarding, rebound, or rigidity. Pelvis: Nontender to palpation and stable to compression. Femoral pulses strong and equal Extremities: no surface trauma. Sensation intact. Peripheral pulses intact and equal. Neuro: ANO x2, GCS 15, cranial nerves II through XII intact. Motor tremors noted, and sensory exam nonfocal. Patient is slightly hard of hearing, she does respond to verbal, EOMs intact, no nystagmus, tongue is midline, intact dorsal pedal flexion and extension, left lower extremity strengthg approximally 4 out of 5. No leg drop, no pronator drift. No obvious facial droop. Course Vital Signs Vital signs: Vital Signs Temperature 37.6 C H 03/21/25 20:28 Pulse 68 03/21/25 20:28 Respiratory Rate 14 03/21/25 20:28 Blood Pressure 169/94 H 03/21/25 20:28 Pulse Oximetry 95 03/21/25 20:28 Temperature 37.6 C H 03/21/25 20:28 Temperature Source Tympanic 03/21/25 20:28 Pulse 68 03/21/25 20:28 Respiratory Rate 14 03/21/25 20:28 Blood Pressure 169/94 H 03/21/25 20:28 Blood Pressure Position Supine 03/21/25 20:28 Pulse Oximetry 95 03/21/25 20:28 Oxygen Delivery Method Room Air 03/21/25 20:28 Oxygen Flow Rate 0 03/21/25 20:28 Procedure Laceration Laceration 1: Date of Procedure: 03/21/25 Time of procedure: 23:36 Provider that performed the procedure: Kaila Meyers Time Out Performed: Yes Patient Consented: Verbally Site: scalp (occipital) Description: linear Depth: simple, single layer Pre-repair:: wound explored and irrigated extensively Skin layer closed with: other (gertrude ) Suture size: other (gertrude) Number of sutures:: 5 Procedure Description/Note: Let applied by staffing director, cleaned with chlorhexidine. Bleeding controlled. 5 gertrude placed, patient tolerated well wound well-approximated. Medical Decision Making 84-year-old female presents to the ER accompanied by EMS and family chief complaint of fall with a head lack to her occiput little scalp. Per family report she was seen in [place] in [place] in the emergency department today earlier after an ENT appointment where she began having garbled speech and dysphagia not acting herself. They did a CT at that time and discharged her home. Upon arriving home which she was put in bed by her family and they heard a crash found her on the floor and agonal breathing. She presents alert and oriented, no gross motor or focal neurodeficits noted. She does have approximately 1 and half centimeter laceration to the back of her head. They also report that she is fallen 7 times over the weekend. No pronator drift, intact dorsiflexion and pedal flexion, she does have slightly weaker left lower extremity 4 out of 5 with elevation. Last known well last pm. CVA workup ordered, chest x-ray CTA brain and neck. Differential diagnosis includes not limited to TIA, CVA, weakness, dehydration, Labs show no leukocytosis, glucose 109, troponin is within normal limits, PT and PTT is pending. Contacted Dr. Orona on-call for night hospitalist regarding patient case in details and request for admission for frequent falls and CVA rule out versus TIA. Patient was seen by neurology yesterday. She does have a history of vascular dementia and cognitive decline. Hospitalist will come and speak with the family. Will plan for laceration repair. See procedure note, 5 gertrude placed to the occipital scalp. Patient is much more conversive, alert and oriented, informed of plan of care for admission they verbalized understanding. Patient given some p.o. water to drink. At this time awaiting bed placement and transfer to the floor. This text was generated using [employer] dictation system, please disregard any oddities of phrase or misspellings. Medical Records Medical records reviewed: Yes I reviewed the patient's medical records. Imaging Data Radiologic Study: Imaging: CT Scan Radiologist's impression: POSTERIOR CIRCULATION: Right vertebral artery: No occlusion or significant stenosis. No aneurysm. Left vertebral artery: No occlusion or significant stenosis. No aneurysm. Basilar artery: No occlusion or significant stenosis. No aneurysm. Right posterior cerebral artery: No occlusion or significant stenosis. No aneurysm. Left posterior cerebral artery: No occlusion or significant stenosis. No aneurysm. HEAD: Brain: There are moderate periventricular and subcortical lucencies consistent with chronic microvascular ischemic changes.The whelan-white differentiation is maintained. No hemorrhage. No edema. Bilateral basal ganglia calcifications. Cerebral ventricles: Normal. No ventriculomegaly. Bones: Unremarkable. No acute fracture. Paranasal sinuses: Visualized sinuses are normal. No fluid levels. Mastoid air cells: Effusion in the right mastoid air cells. Soft tissues: Unremarkable. IMPRESSION: 1. No large vessel occlusion. 2. Unremarkable CT head. ASSESSMENT: ASPECTS ([place] Stroke Program Early CT Score) is 10 COMPARISON: CT BRAIN NECK CTA 02/22/2024 1:37 PM FINDINGS: Right common carotid artery: No stenosis. No dissection or occlusion. Right internal carotid artery: No stenosis of the extracranial segment. No dissection or occlusion. Right external carotid artery: No occlusion or stenosis of the origin. Left common carotid artery: No stenosis. No dissection or occlusion. Left internal carotid artery: No stenosis of the extracranial segment. No dissection or occlusion. Left external carotid artery: No occlusion or stenosis of the origin. Right vertebral artery: No stenosis. No dissection or occlusion. Left vertebral artery: No stenosis. No dissection or occlusion. Soft tissues: Normal. No significant soft tissue swelling. Bones/joints: No acute fracture. IMPRESSION: No stenosis or occlusion. REFERENCES: NASCET CRITERIA. The degree of stenosis in the cervical segment of the internal carotid artery is based on NASCET criteria. Normal is no stenosis. Mild is less than 50% stenosis. Moderate is 50- 69% stenosis. Severe is 70% to 99% stenosis. Total occlusion is no detectable patent lumen. Thank you for allowing us to participate in the care of your patient. Dictated and Authenticated by: Arun Alvarez DO Radiologic Study #2: Imaging: X-Ray Radiologist's impression: PROCEDURE INFORMATION: Exam: XR Chest Exam date and time: 03/21/2025 10:13 PM Age: 84 years old Clinical indication: Frequent falls TECHNIQUE: Imaging protocol: Radiologic exam of the chest. Views: 1 view. COMPARISON: No relevant prior studies available. FINDINGS: Lungs: Increased pulmonary vascular markings. Pleural spaces: Unremarkable. No pleural effusion. No pneumothorax. Heart/Mediastinum: Unremarkable. No cardiomegaly. Bones/joints: Degenerative changes of the spine. IMPRESSION: Increased pulmonary vascular markings may represent pulmonary vascular congestion. Thank you for allowing us to participate in the care of your patient. Dictated and Authenticated by: Arun Alvarez DO Lab Data Lab results reviewed: Yes I reviewed the patient's lab results. Labs: Laboratory Tests Range/Units 03/21/25 21:15 WBC (4.4-10.8) 10^3/uL 10.26 RBC (3.93-5.22) 10^6/uL 4.46 Hgb (11.2-15.7) g/dL 14.0 Hct (36.0-46.0) % 40.9 MCV (80-95) fL 92 MCH (27.0-33.0) pg 31.4 MCHC (32.0-36.0) % 34.2 RDW (11.7-14.6) % 13.6 Plt Count (130-400) 10^3/uL 287 MPV (8.0-11.0) fL 9.8 Immature Gran % % 0.4 Neutrophils % % 72.5 Lymphocytes % % 17.0 Monocytes % % 6.8 Eosinophils % % 2.6 Basophils % % 0.7 Nucleated RBC % (0.0-0.3) % 0.0 Absolute Neutrophils (1.2-6.7) 10^3/uL 7.44 H Absolute Lymphocytes (1.2-3.4) 10^3/uL 1.74 Absolute Monocytes (0.1-0.8) 10^3/uL 0.70 Absolute Eosinophils (0.0-0.7) 10^3/uL 0.27 Absolute Basophils (0.0-0.2) 10^3/uL 0.07 Sodium (136-145) mmol/L 142 Potassium (3.5-5.1) mmol/L 3.5 Chloride (98-107) mmol/L 106 Carbon Dioxide (21.0-32.0) mmol/L 24.5 Anion Gap (3-11) mmol/L 11.5 H BUN (7-18) mg/dL 13 Creatinine (0.55-1.02) mg/dL 0.7 Est GFR (CKD-EPI 2020) (mL/min/1.73m2) 86.30 Glucose (74-106) mg/dL 109 H Calcium (8.5-10.1) mg/dL 9.1 Magnesium (1.8-2.4) mg/dL 2.2 Total Bilirubin (0.2-1.0) mg/dL 0.3 AST (15-37) U/L 21 ALT (14-59) U/L 28 Alkaline Phosphatase (46-116) U/L 90 Troponin I (<or=51) ng/L 6 Total Protein (6.4-8.2) g/dL 7.7 Albumin (3.4-5.0) g/dL 3.6 PFSH All Active Problems (Updated 03/21/25 @ 23:40 by Kaila Ndiaye NP) Cognitive decline (Acute) Laceration of occipital scalp (Acute) Frequent falls (Acute) Imbalance (Acute) Essential tremor (Acute) B12 deficiency (Acute) Accident due to mechanical fall without injury (Acute) Medical History Insomnia Pre-diabetes Hyperlipidemia OAB (overactive bladder) Dementia Anxiety Obesity Depression Hypothyroidism Surgical History S/P tonsillectomy S/P appendectomy S/P cholecystectomy Family History Mother Dementia Father Cancer Brother Colon cancer COPD (chronic obstructive pulmonary disease) Social History Smoking/Tobacco Use Status: Never Smoking risk assessment performed?: Yes Alcohol Intake: never Drug use: Never Substance use type: does not use Household members: family Housing: house Number of Children: 1 What is your relationship status?: Panel score (0-1 are the most socially isolated patients): 0 Do you feel safe at home: Yes Do you feel safe in your relationship?: Yes
[2025-03-21 21:27] LABS: Abs Immature Grans 0.04 10^3/uL (0.0-0.06); HCT 40.9 % (36.0-46.0); HGB 14.0 g/dL (11.2-15.7); Immature Grans % 0.4 %; MCH 31.4 pg (27.0-33.0); MCHC 34.2 % (32.0-36.0); MCV 92 fL (80-95); MPV 9.8 fL (8.0-11.0); Platelet Count 287 10^3/uL (130-400); RBC 4.46 10^6/uL (3.93-5.22); RDW 13.6 % (11.7-14.6); RDW-SD 46.1 fL; WBC 10.26 10^3/uL (4.4-10.8)
[2025-03-21 21:44] LABS: ALT 28 U/L (14-59); AST 21 U/L (15-37); Albumin 3.6 g/dL (3.4-5.0); Alkaline Phosphatase 90 U/L (46-116); Anion Gap 11.5 mmol/L (3-11); BUN 13 mg/dL (7-18); Bilirubin, Total 0.3 mg/dL (0.2-1.0); CO2 24.5 mmol/L (21.0-32.0); Calcium 9.1 mg/dL (8.5-10.1); Chloride 106 mmol/L (98-107); Estimated GFR 86.30 (mL/min/1.73m2); Glucose 109 mg/dL (74-106); Magnesium 2.2 mg/dL (1.8-2.4); Potassium 3.5 mmol/L (3.5-5.1); Sodium 142 mmol/L (136-145); Total Protein 7.7 g/dL (6.4-8.2); Troponin I 6 ng/L (<or=51)
[2025-03-21] MEDS: Omnipaque 350 MG/ML 100 ML BTL IJ (21:52)
[2025-03-21] MEDS: Normal Saline - Diluent 50 ML VIAL IJ (21:53)
[2025-03-21] MEDS: Normal Saline Flush 10 ML SYR IVP (21:53)
[2025-03-21] MEDS: Lidocaine/Epinephri/Tetracaine Topical Gel 3 ML TP (21:55)
--- NOTE | 2025-03-21 22:31 | DI.VRAD_ITS ---
PROCEDURE INFORMATION: Exam: CTA Head Without And With Contrast, Arteriography Exam date and time: 03/21/2025 9:50 PM Age: 84 years old Clinical indication: Stroke-like symptoms; Other: Dysphasia; Additional info: Dysphasia, frequent falls TECHNIQUE: Imaging protocol: Computed tomographic angiography of the head without and with contrast. Exam focused on the arteries. 3D rendering (Not supervised by radiologist): MIP and/or 3D reconstructed images were created by the technologist. Radiation optimization: All CT scans at this facility use at least one of these dose optimization techniques: automated exposure control; mA and/or kV adjustment per patient size (includes targeted exams where dose is matched to clinical indication); or iterative reconstruction. Contrast material: OMNIPAQUE 350; Contrast volume: 70 ml; Contrast route: INTRAVENOUS (IV); Other technique: STROKE PROTOCOL was implemented. COMPARISON: CT BRAIN NECK CTA 02/22/2024 1:37 PM FINDINGS: ANTERIOR CIRCULATION: Right internal carotid artery: Intracranial segment is patent with no significant stenosis or occlusion. No aneurysm. Right middle cerebral artery: No occlusion or significant stenosis. No aneurysm. Right anterior cerebral artery: No occlusion or significant stenosis. No aneurysm. Left internal carotid artery: Intracranial segment is patent with no significant stenosis. No aneurysm. Left middle cerebral artery: No occlusion or significant stenosis. No aneurysm. Left anterior cerebral artery: No occlusion or significant stenosis. No aneurysm. POSTERIOR CIRCULATION: Right vertebral artery: No occlusion or significant stenosis. No aneurysm. Left vertebral artery: No occlusion or significant stenosis. No aneurysm. Basilar artery: No occlusion or significant stenosis. No aneurysm. Right posterior cerebral artery: No occlusion or significant stenosis. No aneurysm. Left posterior cerebral artery: No occlusion or significant stenosis. No aneurysm. HEAD: Brain: There are moderate periventricular and subcortical lucencies consistent with chronic microvascular ischemic changes.The whelan-white differentiation is maintained. No hemorrhage. No edema. Bilateral basal ganglia calcifications. Cerebral ventricles: Normal. No ventriculomegaly. Bones: Unremarkable. No acute fracture. Paranasal sinuses: Visualized sinuses are normal. No fluid levels. Mastoid air cells: Effusion in the right mastoid air cells. Soft tissues: Unremarkable. IMPRESSION: 1. No large vessel occlusion. 2. Unremarkable CT head. ASSESSMENT: ASPECTS ([place] Stroke Program Early CT Score) is 10. PROCEDURE INFORMATION: Exam: CTA Neck Without And With Contrast Exam date and time: 03/21/2025 9:50 PM Age: 84 years old Clinical indication: Stroke-like symptoms; Other: Dysphasia; Additional info: Dysphasia, frequent falls TECHNIQUE: Imaging protocol: Computed tomographic angiography of the neck without and with contrast. Exam focused on the cervical segments of the vasculature. 3D rendering (Not supervised by radiologist): MIP and/or 3D reconstructed images were created by the technologist. Radiation optimization: All CT scans at this facility use at least one of these dose optimization techniques: automated exposure control; mA and/or kV adjustment per patient size (includes targeted exams where dose is matched to clinical indication); or iterative reconstruction. Contrast material: OMNIPAQUE 350; Contrast volume: 70 ml; Contrast route: INTRAVENOUS (IV); COMPARISON: CT BRAIN NECK CTA 02/22/2024 1:37 PM FINDINGS: Right common carotid artery: No stenosis. No dissection or occlusion. Right internal carotid artery: No stenosis of the extracranial segment. No dissection or occlusion. Right external carotid artery: No occlusion or stenosis of the origin. Left common carotid artery: No stenosis. No dissection or occlusion. Left internal carotid artery: No stenosis of the extracranial segment. No dissection or occlusion. Left external carotid artery: No occlusion or stenosis of the origin. Right vertebral artery: No stenosis. No dissection or occlusion. Left vertebral artery: No stenosis. No dissection or occlusion. Soft tissues: Normal. No significant soft tissue swelling. Bones/joints: No acute fracture. IMPRESSION: No stenosis or occlusion. REFERENCES: NASCET CRITERIA. The degree of stenosis in the cervical segment of the internal carotid artery is based on NASCET criteria. Normal is no stenosis. Mild is less than 50% stenosis. Moderate is 50-69% stenosis. Severe is 70% to 99% stenosis. Total occlusion is no detectable patent lumen. Dictated and Authenticated by: Arun Alvarez MD. Orderin Senthil Bright MD
--- NOTE | 2025-03-21 22:38 | DI.VRAD_ITS ---
PROCEDURE INFORMATION: Exam: XR Chest Exam date and time: 03/21/2025 10:13 PM Age: 84 years old Clinical indication: Frequent falls TECHNIQUE: Imaging protocol: Radiologic exam of the chest. Views: 1 view. COMPARISON: No relevant prior studies available. FINDINGS: Lungs: Increased pulmonary vascular markings. Pleural spaces: Unremarkable. No pleural effusion. No pneumothorax. Heart/Mediastinum: Unremarkable. No cardiomegaly. Bones/joints: Degenerative changes of the spine. IMPRESSION: Increased pulmonary vascular markings may represent pulmonary vascular congestion. Dictated and Authenticated by: Arun Alvarez MD. Orderin Senthil Bright MD
[2025-03-21 22:49] LABS: Troponin I 7 ng/L (<or=51)
[2025-03-21 23:23] VITALS: PULSE 71; RESP 14
[2025-03-21 23:30] VITALS: PULSE 74; RESP 22
[2025-03-21 23:40] VITALS: PULSE 76; RESP 13
[2025-03-21 23:50] VITALS: PULSE 68; RESP 18
[2025-03-22] VITALS (23 sets, daily range): BP systolic 133–192; BP diastolic 69–105; PULSE 61–74; RESP 10–20; TEMP 36.5–36.7; O2SAT 92–97
[2025-03-22 00:41] LABS: Glucose Negative (Negative)
[2025-03-22 00:51] LABS: C & S Indicated? Yes; RBC 0-2 HPF (0-2)
--- NOTE | 2025-03-22 01:02 | W.PM.HP.N ---
Date of service: 03/22/25 Time of Service: 00:30 Assessment and Plan Assessment and plan (1) Multiple falls: Status: Acute Assessment and plan: Multiple ED visits here for falls back to November 2023 Patient's son reports acute worsening of imbalance and impulsivity Family is working toward placement in memory care Patient has had home health PT but has limited participation due to cognitive decline Will defer additional neurological workup as patient just saw neurologist and had full CVA workup at [facility] Will defer PT evaluation as patient has services at home of limited use Patient's needs not well met at home and family may need assistance with placement (2) Laceration of occipital scalp: Status: Acute Assessment and plan: Laceration was sutured in ED Wound care Non-narcotic pain medications (3) Ambulatory dysfunction: Status: Acute Assessment and plan: Unclear if she is losing balance while using her walker Will defer PT as above (4) Essential tremor: Status: Acute Assessment and plan: Recent start of topiramate may be worsening balance, will hold Continue primidole (5) Cognitive decline: Status: Acute Assessment and plan: Continue home paroxetine (6) Benign essential hypertension: Status: Acute Assessment and plan: Continue home atenolol History of Present Illness History of Present Illness Chief Complaint: head injury Narrative: Lindy Arias is an 84 year old woman presenting March 21 after falling at home. She hit her head and was bleeding from the back of her scalp. She was seen earlier in the day at the [facility] ED, due to garbled speech. CVA workup there was negative. Per patient's son, she has fallen 7 times since the weekend. He reports that she is impulsive and cannot be constantly watched at home. She has mostly been falling while using her walker. On interview, patient reports that her head hurts but nothing else is bothering her. Per son, he and his are primary caregivers for Lindy as well as for his 's father, both of whom have dementia; Lindy is requiring increasing amounts of care that the caregivers fear they are not able to provide. Lindy was seen by neurologist Dr Sorto on March 20, with continuing treatment for chronic vascular dementia as well as continuing topiramate for tremors - the topiramate was started recently. Lindy has a laceration on the back of her scalp, which has been sutured. The pillow is moderately soaked with blood. PMH: dementia, asthma, HTN, essential tremor, depression In the ED, BP was elevated 160's / 90's rising to 190's / 80's. UA with ketones and WBCs. Urine culture was sent. CXR showed increased pulmonary vascular markings. CTA head/neck unremarkable. PFSH All Active Problems (Updated 03/22/25 @ 05:28 by Roberto Orona MD) Benign essential hypertension (Acute) Ambulatory dysfunction (Acute) Multiple falls (Acute) Cognitive decline (Acute) Laceration of occipital scalp (Acute) Frequent falls (Acute) Imbalance (Acute) Essential tremor (Acute) B12 deficiency (Acute) Accident due to mechanical fall without injury (Acute) Medical History Insomnia Pre-diabetes Hyperlipidemia OAB (overactive bladder) Dementia Anxiety Obesity Depression Hypothyroidism Surgical History S/P tonsillectomy S/P appendectomy S/P cholecystectomy Family History Mother Dementia Father Cancer Brother Colon cancer COPD (chronic obstructive pulmonary disease) Social History Smoking/Tobacco Use Status: Never Smoking risk assessment performed?: Yes Alcohol Intake: never Drug use: Never Substance use type: does not use Household members: family Housing: house Number of Children: 1 What is your relationship status?: Panel score (0-1 are the most socially isolated patients): 0 Do you feel safe at home: Yes Do you feel safe in your relationship?: Yes Meds Allergies and Home Medications Allergies Allergy/AdvReac Type Severity Reaction Status Date / Time Penicillins Allergy Mild Hives Verified 03/21/25 20:36 calcium carbonate Allergy Unknown OTHER Verified 03/21/25 20:36 clarithromycin Allergy Unknown PALPITATION Verified 03/21/25 20:36 S ergocalciferol (vitamin D2) Allergy Unknown OTHER Verified 03/21/25 20:36 (From Vitamin D2) levofloxacin Allergy Unknown OTHER Verified 03/21/25 20:36 losartan Allergy Unknown OTHER Verified 03/21/25 20:36 phytonadione (vitamin K1) Allergy Unknown Other (See Verified 03/21/25 20:36 Comment) aspirin Allergy Other (See Verified 03/21/25 20:36 Comment) Home Medications ?Medication ?Instructions ?Recorded ?Confirmed ?Type atenolol 25 mg tablet 25 mg PO BID 12/20/23 03/21/25 History primidone 50 mg tablet 100 mg PO BID 12/20/23 03/21/25 History montelukast 10 mg tablet 10 mg PO DAILY 05/23/24 03/21/25 History (Singulair) omeprazole magnesium 20 mg 20 mg PO DAILY 11/16/24 03/21/25 History tablet,delayed release topiramate 50 mg tablet 50 mg PO DAILY 03/06/25 03/21/25 History paroxetine HCl 40 mg tablet 30 mg PO DAILY 03/21/25 03/21/25 History Exam Narrative Exam Narrative: General: This is a confused, obese, elderly woman in no acute distress HEENT: occipital laceration is sutured with drying blood on the pillow CV: RRR Resp: CTAB Abd: NTND +NBS MSK: voluntary motion x4 Neuro: awake alert, some interaction, no focal deficits Results Labs 03/21/25 21:15 03/21/25 21:15 Labs: Laboratory Results - last 24 hr 03/21/25 03/21/25 03/21/25 20:59 21:15 22:25 WBC 10.26 RBC 4.46 Hgb 14.0 Hct 40.9 MCV 92 MCH 31.4 MCHC 34.2 RDW 13.6 Plt Count 287 MPV 9.8 Immature Gran % 0.4 Neutrophils % 72.5 Lymphocytes % 17.0 Monocytes % 6.8 Eosinophils % 2.6 Basophils % 0.7 Nucleated RBC % 0.0 Absolute Neutrophils 7.44 H Absolute Lymphocytes 1.74 Absolute Monocytes 0.70 Absolute Eosinophils 0.27 Absolute Basophils 0.07 PT Cancelled INR Cancelled Sodium 142 Potassium 3.5 Chloride 106 Carbon Dioxide 24.5 Anion Gap 11.5 H BUN 13 Creatinine 0.7 Est GFR (CKD-EPI 2020) 86.30 Glucose 109 H Calcium 9.1 Magnesium 2.2 Total Bilirubin 0.3 AST 21 ALT 28 Alkaline Phosphatase 90 Troponin I 6 7 Total Protein 7.7 Albumin 3.6 Urine Color Urine Clarity Urine pH Ur Specific [place] Urine Protein Urine Ketones Urine Blood Urine Nitrite Urine Bilirubin Urine Urobilinogen Ur Leukocyte Esterase Urine RBC Urine WBC Ur Epithelial Cells Urine Crystals Urine Bacteria Urine Casts Urine Mucus Ur Culture Indicated? Urine Glucose 03/21/25 03/22/25 23:59 00:33 WBC RBC Hgb Hct MCV MCH MCHC RDW Plt Count MPV Immature Gran % Neutrophils % Lymphocytes % Monocytes % Eosinophils % Basophils % Nucleated RBC % Absolute Neutrophils Absolute Lymphocytes Absolute Monocytes Absolute Eosinophils Absolute Basophils PT INR Sodium Potassium Chloride Carbon Dioxide Anion Gap BUN Creatinine Est GFR (CKD-EPI 2020) Glucose Calcium Magnesium Total Bilirubin AST ALT Alkaline Phosphatase Troponin I Cancelled Total Protein Albumin Urine Color Yellow Urine Clarity Clear Urine pH 6.0 Ur Specific [place] 1.010 Urine Protein Negative Urine Ketones 15 H Urine Blood Trace-intact H Urine Nitrite Negative Urine Bilirubin Negative Urine Urobilinogen 0.2 Ur Leukocyte Esterase Trace H Urine RBC 0-2 Urine WBC 10-20 H Ur Epithelial Cells Few Urine Crystals Negative Urine Bacteria Few Urine Casts Negative Urine Mucus Trace Ur Culture Indicated? Yes Urine Glucose Negative Last Vital Signs Temp 37.6 C H 03/21/25 20:28 Pulse 68 03/22/25 00:32 Resp 13 03/22/25 00:32 BP 192/89 H 03/22/25 00:32 Pulse Ox 95 03/22/25 00:32 Time Spent Time spent with Patient: 40-54 minutes Time was spent: preparing to see the patient(eg.review tests), obtaining and/or reviewing separately otained hiistory, ordering medications,tests, procedures, referring, communicating with other health customer care consultant, indepentently interpreting results, counseling the patient and care coordination
--- NOTE | 2025-03-22 01:54 | W.PC.ACHO ---
Registration Status: REG Primary Language: Preferred Language: ED Information & Data Chief Complaint Laceration 03/21/25 21:02 Triage Note patient fell in bathroom 03/21/25 20:28 sustaining a Lac to occipital area of head. no loc. patient endorsing fatigue after having a busy day with appts. no neck pain . Medical / Surgical History (Last Reviewed 03/21/25 @ 22:49 by Kaila Ndiaye NP) Insomnia Pre-diabetes Hyperlipidemia OAB (overactive bladder) Dementia Anxiety Obesity Depression Hypothyroidism (Last Reviewed 03/21/25 @ 22:49 by Kaila Ndiaye NP) S/P tonsillectomy S/P appendectomy S/P cholecystectomy Most Recent Vital Signs Temperature 37.6 C H 03/21/25 20:28 Temperature Source Tympanic 03/21/25 20:28 Pulse 67 03/22/25 01:50 Pulse 68 03/22/25 01:50 Respiratory Rate 15 03/22/25 01:50 Blood Pressure 178/80 H 03/22/25 01:49 Blood Pressure Mean 104 03/22/25 01:49 Blood Pressure Position Supine 03/21/25 20:28 Pulse Oximetry 95 03/22/25 01:50 Oxygen Delivery Method Room Air 03/21/25 20:28 Oxygen Flow Rate 0 03/21/25 20:28 Allergies Penicillins Allergy (Mild, Verified 03/21/25 20:36) Hives calcium carbonate Allergy (Unknown, Verified 03/21/25 20:36) OTHER clarithromycin Allergy (Unknown, Verified 03/21/25 20:36) PALPITATIONS ergocalciferol (vitamin D2) (From Vitamin D2) Allergy (Unknown, Verified 03/21/25 20:36) OTHER levofloxacin Allergy (Unknown, Verified 03/21/25 20:36) OTHER losartan Allergy (Unknown, Verified 03/21/25 20:36) OTHER phytonadione (vitamin K1) Allergy (Unknown, Verified 03/21/25 20:36) Other (See Comment) aspirin Allergy (Verified 03/21/25 20:36) Other (See Comment) GI BLEED Precautions Isolation Fall precaution 03/21/25 20:33 Active Medications Generic Name Dose Route Start Last Admin Trade Name Freq PRN Reason Stop Dose Admin Iohexol 100 ml 03/21/25 22:00 03/21/25 21:52 Omnipaque 350 Mg/Ml 100 Ml Btl IJ 04/20/25 23:59 70 ml DIRECTED YOLETTE Administration Sodium Chloride 0 ml 03/21/25 20:54 03/21/25 21:53 Normal Saline Flush 10 Ml Syr IVP 10 ml PRN PRN Administration Sodium Chloride 50 ml 03/21/25 22:00 03/21/25 21:53 Normal Saline - Diluent 50 Ml Vial IJ 50 ml .FOR DI USE YOLETTE Administration IV IV Catheter Type [Right Saline Lock Antecubital] IV Catheter Gauge [Right 20 Antecubital] Diet Orders Category Date Time Status Regular/Normal [DIET] Nutrition 03/22/25 Breakfast Active Diagnostics 03/22/25 03/21/25 03/21/25 Range/Units 00:33 23:59 22:25 WBC (4.4-10.8) 10^3/uL RBC (3.93-5.22) 10^6/uL Hgb (11.2-15.7) g/dL Hct (36.0-46.0) % MCV (80-95) fL MCH (27.0-33.0) pg MCHC (32.0-36.0) % RDW (11.7-14.6) % Plt Count (130-400) 10^3/uL MPV (8.0-11.0) fL Immature Gran % % Neutrophils % % Lymphocytes % % Monocytes % % Eosinophils % % Basophils % % Nucleated RBC % (0.0-0.3) % Absolute Neutrophils (1.2-6.7) 10^3/uL Absolute Lymphocytes (1.2-3.4) 10^3/uL Absolute Monocytes (0.1-0.8) 10^3/uL Absolute Eosinophils (0.0-0.7) 10^3/uL Absolute Basophils (0.0-0.2) 10^3/uL PT INR Sodium (136-145) mmol/L Potassium (3.5-5.1) mmol/L Chloride (98-107) mmol/L Carbon Dioxide (21.0-32.0) mmol/L Anion Gap (3-11) mmol/L BUN (7-18) mg/dL Creatinine (0.55-1.02) mg/dL Est GFR (CKD-EPI 2020) (mL/min/1.73m2) Glucose (74-106) mg/dL Calcium (8.5-10.1) mg/dL Magnesium (1.8-2.4) mg/dL Total Bilirubin (0.2-1.0) mg/dL AST (15-37) U/L ALT (14-59) U/L Alkaline Phosphatase (46-116) U/L Troponin I Cancelled 7 (<or=51) ng/L Total Protein (6.4-8.2) g/dL Albumin (3.4-5.0) g/dL Urine Color Yellow (Yellow) Urine Clarity Clear (Clear) Urine pH 6.0 (5-8) Ur Specific [place] 1.010 (1.005-1.025) Urine Protein Negative (Neg-Trace) mg/dL Urine Ketones 15 H (Negative) mg/dL Urine Blood Trace-intact H (Negative) Urine Nitrite Negative (Negative) Urine Bilirubin Negative (Negative) Urine Urobilinogen 0.2 (Up to 0.2) mg/dL Ur Leukocyte Esterase Trace H (Negative) Urine RBC 0-2 (0-2) HPF Urine WBC 10-20 H (0-5) HPF Ur Epithelial Cells Few (Negative) HPF Urine Crystals Negative (Negative) HPF Urine Bacteria Few (Negative) HPF Urine Casts Negative (Negative) LPF Urine Mucus Trace (Negative) Ur Culture Indicated? Yes Urine Glucose Negative (Negative) mg/dL 03/21/25 03/21/25 Range/Units 21:15 20:59 WBC 10.26 (4.4-10.8) 10^3/uL RBC 4.46 (3.93-5.22) 10^6/uL Hgb 14.0 (11.2-15.7) g/dL Hct 40.9 (36.0-46.0) % MCV 92 (80-95) fL MCH 31.4 (27.0-33.0) pg MCHC 34.2 (32.0-36.0) % RDW 13.6 (11.7-14.6) % Plt Count 287 (130-400) 10^3/uL MPV 9.8 (8.0-11.0) fL Immature Gran % 0.4 % Neutrophils % 72.5 % Lymphocytes % 17.0 % Monocytes % 6.8 % Eosinophils % 2.6 % Basophils % 0.7 % Nucleated RBC % 0.0 (0.0-0.3) % Absolute Neutrophils 7.44 H (1.2-6.7) 10^3/uL Absolute Lymphocytes 1.74 (1.2-3.4) 10^3/uL Absolute Monocytes 0.70 (0.1-0.8) 10^3/uL Absolute Eosinophils 0.27 (0.0-0.7) 10^3/uL Absolute Basophils 0.07 (0.0-0.2) 10^3/uL PT Cancelled INR Cancelled Sodium 142 (136-145) mmol/L Potassium 3.5 (3.5-5.1) mmol/L Chloride 106 (98-107) mmol/L Carbon Dioxide 24.5 (21.0-32.0) mmol/L Anion Gap 11.5 H (3-11) mmol/L BUN 13 (7-18) mg/dL Creatinine 0.7 (0.55-1.02) mg/dL Est GFR (CKD-EPI 2020) 86.30 (mL/min/1.73m2) Glucose 109 H (74-106) mg/dL Calcium 9.1 (8.5-10.1) mg/dL Magnesium 2.2 (1.8-2.4) mg/dL Total Bilirubin 0.3 (0.2-1.0) mg/dL AST 21 (15-37) U/L ALT 28 (14-59) U/L Alkaline Phosphatase 90 (46-116) U/L Troponin I 6 (<or=51) ng/L Total Protein 7.7 (6.4-8.2) g/dL Albumin 3.6 (3.4-5.0) g/dL Urine Color (Yellow) Urine Clarity (Clear) Urine pH (5-8) Ur Specific [place] (1.005-1.025) Urine Protein (Neg-Trace) mg/dL Urine Ketones (Negative) mg/dL Urine Blood (Negative) Urine Nitrite (Negative) Urine Bilirubin (Negative) Urine Urobilinogen (Up to 0.2) mg/dL Ur Leukocyte Esterase (Negative) Urine RBC (0-2) HPF Urine WBC (0-5) HPF Ur Epithelial Cells (Negative) HPF Urine Crystals (Negative) HPF Urine Bacteria (Negative) HPF Urine Casts (Negative) LPF Urine Mucus (Negative) Ur Culture Indicated? Urine Glucose (Negative) mg/dL 03/22/25 00:33 Urine Culture - Pending Urine - Reflex from [id number] Documentation Fingerstick Glucose Start: 03/21/25 20:59 Freq: .Stat Status: Active Protocol: Activity Type Activity Date Activity User E-sign Co-sign Detail Recorded Client Recorded Date Recorded By Document 03/21/25 21:29 WILFRID DACARLOS(3) [id number] 03/21/25 21:30 WILFRID DACARLOS(4) Intake and Output - 24 Hour Total 03/21/25 20:20 thru 03/21/25 21:22 Intake Total 10 Balance 10 Weight 106.594 kg Intake: IV 10 Falls Risk Assessment History of Falls Admit Due to Fall 03/21/25 20:35 Contributing Factors Impairments,Incontinence, 03/21/25 20:35 Medications Ambulatory Aids Uses ambulatory device + 03/21/25 20:35 Tubes/Lines With any additional score 03/21/25 20:35 Gait Evaluation W/any additional score 03/21/25 20:35 Cognition Cognitive impairment 03/21/25 20:35 Fall Total Score 119 03/21/25 20:35 Level of Risk Maximum Risk 03/21/25 20:35 v v v v v v v v v Sending and/or Receiving Nurses: Please use comment section below to note any information pertinent to the patient hand-off not included above. Information / Comments Report received from:Heather
[2025-03-22] MEDS: Atenolol 25 MG TAB 12.5 MG PO (03:30)
[2025-03-22] MEDS: Normal Saline Flush 10 ML SYR IVP ×2 (08:30→20:14)
[2025-03-22] MEDS: Primidone 50 MG TAB 100 MG PO ×2 (10:39→20:13)
[2025-03-22] MEDS: PARoxetine 10 MG TAB 30 MG PO (10:40)
[2025-03-22] MEDS: Omeprazole 20 MG CAPCR PO (10:40)
[2025-03-22] MEDS: Montelukast 10 MG TAB PO (10:40)
[2025-03-22] MEDS: Atenolol 25 MG TAB PO ×2 (10:41→20:14)
--- NOTE | 2025-03-22 11:21 | CHAPLAIN ---
Lindy was resting in bed when I visited. She told me that she's hard of hearing and to speak up. Lindy has a good sense of humor and told me some funny stories about being in [place]. She's originally from [place], [place] but lives in [place] now, and told me her address on [address]. I explained my role and offered support.
--- NOTE | 2025-03-22 14:27 | IN_ITS ---
PT Notes Visit Reasons: Frequent Falls, Head laceration, Vascular Dementia Physical Therapy Inpatient Initial Evaluation Date: 03/22/2025 Referring Doctor: Megha Crum NP PT Orders: PT CONSULT: Safety Consult for D/C Precautions: Fall risk, left neglect, [place], Left hemiparesis Patient Profile/Admitting Diagnosis: Lindy is an 84 yo female who presented to the ED s/p fall OOB resulting in laceration to occipital area of scalp one day after discharge from Hospital in [facility]. Pt had presented to Hospital in [place] from ENT appointment when she began to have garbled speech and dysphasia not acting herself. Nead CT at [place] facility and in ED at [facility] negative for acute findings. PMHX: Benign essential hypertension (Acute) Ambulatory dysfunction (Acute) Multiple falls (Acute) Cognitive decline (Acute) Laceration of occipital scalp (Acute) Frequent falls (Acute) Imbalance (Acute) Essential tremor (Acute) B12 deficiency (Acute) Accident due to mechanical fall without injury (Acute) Medical History Insomnia Pre-diabetes Hyperlipidemia OAB (overactive bladder) Dementia Anxiety Obesity Depression Hypothyroidism Surgical History S/P tonsillectomy S/P appendectomy S/P cholecystectomy Social History/Home Situation: per CM pt resides with son and daughter in law. Pt states she is independent with all care and walks on her own with [employer]. Per CM pt family states she has been having multiple falls at home and has had decline in abilities as well as medical status recently. son and dtr in law are her primary caregivers They expressed to MD in the ED that they are having increased difficulty managing her at home. Equipment Owned/DME: [employer] coordinated reported order of Hospital bed, lift recliner, bedside commode. Subjective: Pt states she needs to call her son but he has a new number so she is looking for the paper. [paper with his number located under bed sheets. Pt assisted with calling son at end of session] Objective: [] General Observation: Pt presented in sidelying with legs over EOB , on bedpan . Pt did not utilize call light to notify staff of need to get off the bed noguera. Pt with noted left facial droop , avoidance of left and poor tracking to the left Mental Status: Alert oriented to person and place. Pt difficult to redirect/attend to task. Pt unable to Pain: denied ROM: [] Right Upper Extremity: WFL Left Upper Extremity: WFL AAROM Right Lower Extremity: WFL Left Lower Extremity: WFL Strength: [] Right Upper Extremity: 5/5 Left Upper Extremity: 3-/5grossly Right Lower Extremity: hip 4/5 knee 5/5, ankle 4/5 grossly as pt unable to attend to task Left Lower Extremity: hip 3-/5, knee 3-/5, ankle 3-/5 Sensation: appears intact to light touch unable to follow instructions for testing Bed Mobility/Transfers: [] Supine to sit min A to the right side Sit to stand mod A of 1 Stand to sit min A of 1 Bed to chair unable to take step , fearful to perform pivot transfer Gait: unable at this time Balance: [] Static Sitting: Fair- posterior LOB requiring min A to sustain midline Dynamic Sitting: Poor + Static Standing: Poor with BUE support and BLE braced against bed. posterior LOB when not able to brace against bed Dynamic Standing:unable Special Tests: [] Mobility Limitations Standardized Measure [] [facility] AM-PAC 6 clicks Basic Mobility Inpatient Short Form: [] Raw Score: 10 CMS Score: 76.75% Informed Consent/Education: Patient instructed in purpose of PT consult. Assessment: Patient is an 84 yo female who presents with clinical signs and symptoms cons istent with current/admitting diagnoses that have resulted to mobility limitations, gait instability, generalized weakness, and impairment of motor control as demonstrated by the following impairment level findings: 1. Decreased strength/ motor control to left UE/LE major muscle groups > Right 2. Impaired standing balance 3. Impaired functional activity tolerance 4. poor body/spatial awareness 5. impaired righting reactions. in sit and stand 6. Impaired insight into unsafe situations/ poor safety awareness Impairments are contributing to the following functional limitations: 1. Inability to safely ambulate without assistive device 2. Increase completion time for mobility ADL performance 3. Increased fall risk 4. decline in bed mobility skills 5. decline in transfer skills As a result of the above deficits and limitations, Pt is a very high risk for recurrent fall with major injury. Pt would benefit from SNF for further skilled PT/OT and ST to address current deficits prior to discharge to home. If pt is unable to qualify for SNF then pt will require 24 hour physical assistance within home. Pt should not be left alone at any time. would recommend bed alarm or baby monitor in pt's room at night. Patient is assessed as a moderate complexity based on the following: History: 84-year-old female with impairment level findings, functional limitations, and past medical history as indicated above Examination: Demonstrable impairment in strength, balance, and mobility level with underlying impairments and functional limitations as documented above Presentation: evolving Decision Making: moderate Goals: 1. supervision bed mobility 2. min A transfers with FWW 3. amb with FWW min A >25 feet with w/c follow for safety 4. demonstrate ability to sit at EOB in prep for transfers with supervision without posterior LOB Plan of Care/Treatment Plan: 1-2x/day, 7 days/week x 1 week. Plan of care has been reviewed with the [employer] providing the service under Physical Therapy direction. Initiate Physical Therapy intervention for strengthening, bed mobility, transfers, gait, stairs, balance training, use of assistive device. DISCHARGE RECOMMENDATIONS: SNF. If pt is unable to qualify for SNF then pt will require 24 hour physical assistance within home and services. Pt should not be left alone at any time. would recommend bed alarm or baby monitor in pt's room at night. TREATMENT CODE/TIME: 27559/ [id number] Thank you for the opportunity to participate in the care of this patient. Keri Black PT [facility]
--- NOTE | 2025-03-22 16:01 | INITIAL_ITS ---
Date of service: 03/22/25 Time of Service: 16:01 Care Management Initial Assmt Initial Assessment Reason for Hospitalization: Frequent Falls, Head lacerations, Vascular Dementia Functional Status/Living Situation Patient Presentation: Lindy was lying in bed awake, accompanied by her mbkdgudr-nu-dld Kimberly, and son Ziyad. Lindy presented to the ED chief complaint of fall with a head lace ration. Per family report she was seen in [place], [place] in the emergency department yesterday. She began having garbled speech and dysphasia not acting herself during an ENT appointment (see ED note). Lindy was agreeable to conversation. She frequently redirected the conversation to unrelated topics, with this remote mortgage underwriter. Per family in room, she does this at baseline but her confusion is new. Lindy states, she lives in [place] with Ziyad, Kimberly, and possible Kimberly's dad (she does not remember). Lindy is connected to [facility] and her assistant case manager is Komal ([phone]). Per Komal, she has been approved for [facility] ([facility] #[id number] effective as of 01/29/25). Komal reportedly has requested a hospital bed, a lift recliner, and bedside commode which she can receive under her [facility] funding; Family confirms this DME is coming but denies having it in home at this time. Lindy worked with PT today who recommend SNF; Lnidy declines SNF at this time and family states this is not part of their goal for Lindy. Lindy is in OBS and would need a qualifying stay for STR at SNF. Lindy states she would be agreeable to services and currently receives [facility] PT. Palliative care consult requested to review goals of care, code status, and a recent reported decline in health; Will likely see outpatient. CM will continue to follow. Town of Residence: [place] Resides with: Child Significant Other/Family: Local Caregiver/Guardian: Son and [id number]-ndt Natural Supports: Family Employment Status: Retired Instrumental Activities of Daily Living (ADLs): Independent Medications Medication Management: No Issues/Barriers identified Physical Functioning/Mobility Assistive Device: Walker at home. COA coordinated reported order of Hospital bed, lift recliner, bedside commode. Advance Directives Advance Directives: Do you have an Advance Directive: Y , 12:59 AD On File at [facility]: Y 02/21/25, 12:59 Date Asked AD Date Reviewed 03/22/25 Today, 01:03 COLST On File at [facility] COLST Date Scanned Code Status Resuscitation Status Full Code Portal Pt does not currently have a portal and education provided: Yes Insurance Coverage/Financial Issues Insurance: Medicare Part A & B - [id number] Medicaid of [place] - [id number] Care Team Visit Care Team Role Provider Type Megha Crum NP MD [facility] STAFF PHYSICIAN Richard Kinney Primary Care Provider MD [facility] STAFF PHYSICIAN Rosamaria Murphy Other Providers REG OCCUPATIONAL THERAPIS T InPatient [facility]elton Other Providers OTHER Kaila Ndiaye NP Emergency Provider NURSE PRACTITIONER Roberto Orona MD Admit Provider [facility] STAFF PHYSICIAN Attending Provider Discharge Potential Discharge Needs: Consult Consult Services Needed: Other (Palliative), PT Evaluation and PCP F/U Appt Anticipated Barriers to Discharge: Medical Status Patient/Family Education Needs: Review discharge instructions, discuss Ask Me Three Transportation: Private vehicle Plan: Anticipate Lindy will be discharged home once medically ready, with a resumption of HH PT and new OT/RN/DIRECTOR BUSINESS TRAVEL. She will follow up with her community providers and continue per her plan of care. She will likely transport via private vehicle. CM will continue to follow. Social Determinants of Health Screening Social Determinants of health last assessed in clinic: 03/22/25 Will the Patient Participate in the Screening?: Unable to obtain Do you worry about having a steady place to live?: no Problems where you live: no known problems In the past 12 months, have you had to go without electric, gas, oil or water in your home?: no 1. Within the past 12 months, we worried whether our food would run out before we got money to buy more.: Never true 2. Within the past 12 months, the food we bought just didn't last and we didn't have money to get more.: Never true Has lack of transportation kept you from medical appointments or from doing things needed for daily living?: no Has anyone in your life made you feel unsafe or unsupported?: no How hard is it for you to pay for the very basics like food, housing, medical care, and heating? Would you say it is:: Not hard at all Do you want help finding or keeping work or a job?: I do not need or want help If for any reason you need help with day-to-day activities such as bathing, preparing meals, shopping, managing finances, etc., do you get the help you need?: I don?t need any help How often do you feel lonely or isolated from those around you?: Never Do you speak a language other than Armenian at home?: No Does the patient want assistance with any of the above?: No PFSH All Active Problems (Updated 03/22/25 @ 05:28 by Roberto Orona MD) Benign essential hypertension (Acute) Ambulatory dysfunction (Acute) Multiple falls (Acute) Cognitive decline (Acute) Laceration of occipital scalp (Acute) Frequent falls (Acute) Imbalance (Acute) Essential tremor (Acute) B12 deficiency (Acute) Accident due to mechanical fall without injury (Acute) Medical History Insomnia Pre-diabetes Hyperlipidemia OAB (overactive bladder) Dementia Anxiety Obesity Depression Hypothyroidism Surgical History S/P tonsillectomy S/P appendectomy S/P cholecystectomy Family History Mother Dementia Father Cancer Brother Colon cancer COPD (chronic obstructive pulmonary disease) Social History Smoking/Tobacco Use Status: Never Smoking risk assessment performed?: Yes Alcohol Intake: never Drug use: Never Substance use type: does not use Household members: family Housing: house Number of Children: 1 What is your relationship status?: Panel score (0-1 are the most socially isolated patients): 0 Do you feel safe at home: Yes Do you feel safe in your relationship?: Yes Readmission Within the Past 30 Days Yes or No: No
--- NOTE | 2025-03-22 16:06 | PHA.REVIEW2 ---
Pharmacy Admission Review Admission Clinical Review Admission Pharmacy Review: Benign essential hypertension (Acute) Ambulatory dysfunction (Acute) Multiple falls (Acute) Cognitive decline (Acute) Laceration of occipital scalp (Acute) Essential tremor (Acute) Penicillins Allergy (Mild, Verified 03/21/25 20:36) Hives calcium carbonate Allergy (Unknown, Verified 03/21/25 20:36) OTHER clarithromycin Allergy (Unknown, Verified 03/21/25 20:36) PALPITATIONS ergocalciferol (vitamin D2) (From Vitamin D2) Allergy (Unknown, Verified 03/21/25 20:36) OTHER levofloxacin Allergy (Unknown, Verified 03/21/25 20:36) OTHER losartan Allergy (Unknown, Verified 03/21/25 20:36) OTHER phytonadione (vitamin K1) Allergy (Unknown, Verified 03/21/25 20:36) Other (See Comment) aspirin Allergy (Verified 03/21/25 20:36) Other (See Comment) Resuscitation Status Full Code Height 5 ft 5 in Weight 104.5 kg Comments Comments/Follow Ups: Urine culture pending Pharmacy Admission Review Renal Dosing Renal Dosing: BUN 13 mg/dL (7-18) 03/21/25 21:15 Creatinine 0.7 mg/dL (0.55-1.02) 03/21/25 21:15 Medications needing adjustments: Reviewed (CrCl 52.04 mL/min) List of meds needing interventions: Current medications are okay Anticoagulation Anticoagulation: Hgb 14.0 g/dL (11.2-15.7) 03/21/25 21:15 Hct 40.9 % (36.0-46.0) 03/21/25 21:15 Plt Count 287 10^3/uL (130-400) 03/21/25 21:15 INR Cancelled 03/21/25 20:59 Creatinine 0.7 mg/dL (0.55-1.02) 03/21/25 21:15 DVT Prophylaxis: Reviewed (SCDs - fall/head laceration) Relevant Labs Relevant Labs: Sodium 142 mmol/L (136-145) 03/21/25 21:15 Potassium 3.5 mmol/L (3.5-5.1) 03/21/25 21:15 Chloride 106 mmol/L (98-107) 03/21/25 21:15 Magnesium 2.2 mg/dL (1.8-2.4) 03/21/25 21:15 Electrolytes, C-Reactive P, ESR: Reviewed (No new labs for today) Cardiac Review Cardiac Review: Troponin I Cancelled 03/21/25 23:59 Blood Pressure 144/75 0725 Blood Pressure 133/69 0642 BP, HR, EF%: Reviewed (HR WNL) List meds needing interventions: Has order for atenolol 25mg PO BID QTc Review QTc: Reviewed (4444 from 03/21/25) IV to PO Switch IV Medications: Reviewed Home Meds Home Med List reviewed: Reviewed Relevent Home Meds Not ordered & why?: topiramate (on hold per H+P) Current Meds Current Medication Order Review: Reviewed Comments Comments/Follow Ups: Urine culture pending
[2025-03-23 06:50] LABS: Abs Immature Grans 0.03 10^3/uL (0.0-0.06); HCT 39.3 % (36.0-46.0); HGB 13.2 g/dL (11.2-15.7); Immature Grans % 0.4 %; MCH 30.7 pg (27.0-33.0); MCHC 33.6 % (32.0-36.0); MCV 91 fL (80-95); MPV 10.0 fL (8.0-11.0); Platelet Count 284 10^3/uL (130-400); RBC 4.30 10^6/uL (3.93-5.22); RDW 13.6 % (11.7-14.6); RDW-SD 46.0 fL; WBC 8.18 10^3/uL (4.4-10.8)
[2025-03-23 07:07] LABS: Anion Gap 10.5 mmol/L (3-11); BUN 9 mg/dL (7-18); CO2 25.5 mmol/L (21.0-32.0); Calcium 8.9 mg/dL (8.5-10.1); Chloride 107 mmol/L (98-107); Estimated GFR 86.30 (mL/min/1.73m2); Glucose 106 mg/dL (74-106); Magnesium 2.0 mg/dL (1.8-2.4); Sodium 143 mmol/L (136-145)
[2025-03-23 07:28] LABS: Potassium 2.9 mmol/L (3.5-5.1)
[2025-03-23 07:40] VITALS: BP 142/77; PULSE 60; RESP 16; TEMP 36.4; O2SAT 96
[2025-03-23] MEDS: Primidone 50 MG TAB 100 MG PO ×2 (07:46→20:59)
[2025-03-23] MEDS: Normal Saline Flush 10 ML SYR IVP (07:46)
[2025-03-23] MEDS: Omeprazole 20 MG CAPCR PO (07:47)
[2025-03-23] MEDS: Montelukast 10 MG TAB PO (07:47)
[2025-03-23] MEDS: PARoxetine 10 MG TAB 30 MG PO (07:47)
[2025-03-23] MEDS: Atenolol 25 MG TAB PO ×2 (07:47→20:59)
--- NOTE | 2025-03-23 12:51 | PT.INTREAT ---
PT Notes Visit Reasons: Frequent Falls, Head laceration, Vascular Dementia Inpatient Physical Therapy Treatment Note [facility] Date: 03/23/2025 PRECAUTIONS:fall , Standard, [place] SUBJECTIVE: Pt reports she is feeling better and hoping to go home. Pt requesting to use bathroom. OBJECTIVE: Pt presented semireclined in bed, slight left facial droop noted. Pt utilizing BUE for holding book. ? PAIN: denied VITALS: ?monitored by Nursing Therapeutic Activities ([id number][]): Direct one-on-one instruction in dynamic activities to improve functional performance. ? BED MOBILITY/TRANSFERS? Rolling L/R: independent Supine-sit: CGA ? Sit-stand: CGA cues for hand placement? Stand-sit: CGA cues for hand placement? Bed-Commode: CGA with FWW ? Commode- chair: CGA with FWW Provided skilled cues and instruction on performance and technique throughout. - Facilitated safe and correct performance of level surface ambulation covering a distance of 40 feetx2 using use front wheeled walker with contact-guard assist and wheelchair follow for safety. Did not report of any increased pain. Denied headache, chest pain, and lightheadedness throughout activity. Minimal verbal cueing provided for AD management, directional changes, and posture. ASSESSMENT:?progressed to ambulation with FWW this session. Pt no longer demonstrating retropulsion in stand or sit. Pt able to sustain midline in sitting and stand without assistance. Pt able to initiate and participate in ambulation with FWW with w/c follow. Pt continues with slight left facial droop strength equal BUE and BLE. Able to follow all instructions. PLAN: 1-2x/day, 7 days/week x 1 week. Plan of care has been reviewed with the MACHINE BOBBIN WINDER providing the service under Physical Therapy direction. Initiate Physical Therapy intervention for strengthening, bed mobility, transfers, gait, stairs, balance training, use of assistive device. TREATMENT CODE/TIME: 80886/ [id number] DISCHARGE RECOMMENDATION: Home with HHPT and family support vs SNF which pt declines.
[2025-03-23] MEDS: POTASSIUM CHLORIDE 20 MEQ/100 ML BAG 50 MEQ IV_INF (14:01)
[2025-03-23] MEDS: Potassium Chloride 20 MEQ TABCR 40 MEQ PO ×2 (14:01→20:59)
--- NOTE | 2025-03-23 14:38 | W.PM.PROGNOT ---
Date of Service Date of service: 03/23/25 Time of Service: 14:38 Assessment and Plan Assessment and plan (1) Multiple falls: Status: Acute Assessment and plan: Multiple ED visits here for falls back to November 2023 Acute worsening of imbalance and impulsivity Family is working toward placement in memory care Patient has had home health PT but has limited participation due to cognitive decline Will defer additional neurological workup ( MRI) as patient just saw neurologist and had full CVA workup at [facility] -Records still pending -requested again -Patient back to normal today PT consult -has services at home of limited use Patient's needs not well met at home: likely to continue home care VS placement - Lipids -Atorvastatin started A1C (2) Laceration of occipital scalp: Status: Acute Assessment and plan: Laceration was sutured in ED- no drainage or hematoma Ongoing wound care Non-narcotic pain medications- on PRN acetaminophen (3) Ambulatory dysfunction: Status: Acute Assessment and plan: Unclear if she is losing balance while using her walker Will defer PT as above (4) Essential tremor: Status: Acute Assessment and plan: Recent start of topiramate may be worsening balance, will continue to hold Ongoing primidone (5) Cognitive decline: Status: Acute Assessment and plan: On home paroxetine (6) Benign essential hypertension: Status: Acute Assessment and plan: On home atenolol (7) Hypokalemia: Status: Acute Assessment and plan: K 2.9 Replacement given (8) Depression: Assessment and plan: On Paxil (9) On deep vein thrombosis (DVT) prophylaxis: Status: Acute Assessment and plan: LMWH Discussed with Dr. Choi Subjective Subjective Patient reports: tolerating liquids well, tolerating a regular diet, voiding w/o difficulty and bowel movement; denies diarrhea, vomiting, shortness of breath or fever Exam Narrative Exam Narrative: Obese 84 yo female patient, head tremors, no acute neurological deficit, alert and confused- off in time , w/o acute distress, sutured occipital head laceration -no hematoma, no drainage Regular heart , no murmur, unlabored breathing, clear lungs, abdomen is non-acute, moves all 4 ext Objective Last Vital Signs Temp 36.4 C L 03/23/25 07:40 Pulse 60 03/23/25 07:40 Resp 16 03/23/25 07:40 BP 142/77 H 03/23/25 07:40 Pulse Ox 96 03/23/25 07:40 Laboratory Results - last 24 hr 03/23/25 06:30 WBC 8.18 RBC 4.30 Hgb 13.2 Hct 39.3 MCV 91 MCH 30.7 MCHC 33.6 RDW 13.6 Plt Count 284 MPV 10.0 Immature Gran % 0.4 Neutrophils % 60.3 Lymphocytes % 23.5 Monocytes % 9.5 Eosinophils % 5.6 Basophils % 0.7 Nucleated RBC % 0.0 Absolute Neutrophils 4.93 Absolute Lymphocytes 1.92 Absolute Monocytes 0.78 Absolute Eosinophils 0.46 Absolute Basophils 0.06 Sodium 143 Potassium 2.9 L* Chloride 107 Carbon Dioxide 25.5 Anion Gap 10.5 BUN 9 Creatinine 0.7 Est GFR (CKD-EPI 2020) 86.30 Glucose 106 Calcium 8.9 Magnesium 2.0 Time Spent with Patient Time Spent with Patient: >50 minutes Time was spent: preparing to see the patient(eg.review tests), obtaining and/or reviewing separately otained hiistory, ordering medications,tests, procedures, referring, communicating with other health respiratory care technician, indepentently interpreting results, counseling the patient and care coordination
[2025-03-23] MEDS: Acetaminophen 325 MG TAB 650 MG PO (15:36)
[2025-03-23 15:39] LABS: Hemoglobin A1C 5.4 % (<5.7)
[2025-03-23 15:50] LABS: Calculated LDL 96 mg/dL (<100); Cholesterol 191 mg/dL (<200); HDL Cholesterol 41 mg/dL (>or=50); Triglyceride 272 mg/dL (<150)
--- NOTE | 2025-03-23 16:42 | CMPROGNOTE_ITS ---
Date of service: 03/23/25 Time of Service: 16:42 Care Management Progress Note Progress Note Text Progress Note Text: Lindy was sitting up in her bed when CM met with her. She was agreeable to conversation and very pleasant. She states she is feeling better today. Lindy appeared more alert today and was orientated to place, year, and president; She no longer seemed confused, unlike how she appeared the day before with this insurance underwriter. Lindy worked with PT today. New recommendations are home with HHPT. As requested by Ziyad, CM called to offer discharge update. Family is aware and agreeable to PT recommendations. Lindy will follow up with palliative in the outpatient setting. CM will continue to follow. Discharge Potential Discharge Needs: PT Evaluation and PCP F/U Appt Anticipated Barriers to Discharge: Medical Status Patient/Family Education Needs: Review discharge instructions, discuss Ask Me Three Transportation: Private vehicle Plan: Anticipate Lindy will be discharged home once medically ready, with a resumption of PT and new HH OT/RN/LIFE INSURANCE SALES AGENT. She will follow up with her community providers and continue per her plan of care. She will likely transport via private vehicle. CM will continue to follow. Social Determinants of Health Screening Social Determinants of health last assessed in clinic: 03/22/25 Will the Patient Participate in the Screening?: Unable to obtain Do you worry about having a steady place to live?: no Problems where you live: no known problems In the past 12 months, have you had to go without electric, gas, oil or water in your home?: no Has lack of transportation kept you from medical appointments or from doing things needed for daily living?: no Has anyone in your life made you feel unsafe or unsupported?: no How hard is it for you to pay for the very basics like food, housing, medical care, and heating? Would you say it is:: Not hard at all Do you want help finding or keeping work or a job?: I do not need or want help If for any reason you need help with day-to-day activities such as bathing, preparing meals, shopping, managing finances, etc., do you get the help you need?: I don?t need any help How often do you feel lonely or isolated from those around you?: Never Do you speak a language other than Georgian at home?: No Does the patient want assistance with any of the above?: No
[2025-03-23] MEDS: Fosfomycin Tromethamine 3 GM PACKET PO (18:19)
[2025-03-23 20:10] VITALS: PULSE 60; RESP 18; TEMP 36.6; O2SAT 96
[2025-03-23] MEDS: Atorvastatin 40 MG TAB PO (20:59)
[2025-03-23 21:45] VITALS: BP 147/62; PULSE 62
[2025-03-24 06:52] LABS: Abs Immature Grans 0.03 10^3/uL (0.0-0.06); HCT 38.9 % (36.0-46.0); HGB 13.1 g/dL (11.2-15.7); Immature Grans % 0.4 %; MCH 31.3 pg (27.0-33.0); MCHC 33.7 % (32.0-36.0); MCV 93 fL (80-95); MPV 10.0 fL (8.0-11.0); Platelet Count 267 10^3/uL (130-400); RBC 4.19 10^6/uL (3.93-5.22); RDW 13.8 % (11.7-14.6); RDW-SD 46.9 fL; WBC 7.92 10^3/uL (4.4-10.8)
[2025-03-24 07:18] LABS: Anion Gap 10.8 mmol/L (3-11); BUN 11 mg/dL (7-18); CO2 25.2 mmol/L (21.0-32.0); Calcium 9.0 mg/dL (8.5-10.1); Chloride 108 mmol/L (98-107); Estimated GFR 73.52 (mL/min/1.73m2); Glucose 107 mg/dL (74-106); Magnesium 2.0 mg/dL (1.8-2.4); Potassium 3.8 mmol/L (3.5-5.1); Sodium 144 mmol/L (136-145)
[2025-03-24 07:48] VITALS: BP 110/74; PULSE 61; RESP 16; TEMP 36.4; O2SAT 92
--- NOTE | 2025-03-24 08:00 | DI.MRI_ITS ---
Exam(s) MR BRAIN WO EXAM: MR BRAIN WO CLINICAL HISTORY: CVA TECHNIQUE: Multiplanar multisequence MRI of the brain was performed. COMPARISON: CT CT BRAIN NECK CTA from 03/21/2025 FINDINGS: CEREBRAL PARENCHYMA: There is no evidence of intracranial hemorrhage, mass effect, or shift of midline structures. There are no extra-axial fluid collections. Ventricles are not enlarged or shifted. There is no significant focal signal abnormality in the cerebellar hemispheres. There is mild increased signal seen in both sides of nolan. Also in the right thalamus. There is abundant bilateral white matter signal abnormality consistent chronic small vessel disease. There is no evidence of restricted diffusion to suggest acute ischemic event. PITUITARY GLAND: No mass nor parasellar abnormality. No obvious abnormality in the cavernous sinuses. FLOW VOIDS: The expected flow void are noted. No evidence of obvious aneurysm nor obvious vascular malformation. PARANASAL SINUSES: The visualized paranasal sinuses appear unremarkable. No obvious finding ORBITS: No obvious findings. IMPRESSION: There is abundant bilateral periventricular signal abnormality consistent with chronic small vessel disease, commensurate with the what is evident on the prior CT scans. There is no evidence of hemorrhage and there is no restricted diffusion to suggest acute or subacute ischemic event. DATA REPOSITORY:
[2025-03-24] MEDS: Potassium Chloride 20 MEQ TABCR 40 MEQ PO ×2 (08:21→13:19)
[2025-03-24] MEDS: Omeprazole 20 MG CAPCR PO (08:21)
[2025-03-24] MEDS: Primidone 50 MG TAB 100 MG PO (08:21)
[2025-03-24] MEDS: Atenolol 25 MG TAB PO (08:21)
[2025-03-24] MEDS: PARoxetine 10 MG TAB 30 MG PO (08:21)
[2025-03-24] MEDS: Montelukast 10 MG TAB PO (08:21)
[2025-03-24] MEDS: Enoxaparin 40 MG/0.4 ML SYR SC (08:22)
[2025-03-24] MEDS: Normal Saline Flush 10 ML SYR IVP (08:22)
--- NOTE | 2025-03-24 10:19 | PDOC.CMDIS ---
Date of service: 03/24/25 Time of Service: 10:19 LACE Index Scoring Tool Questions: Length of Stay (in days): 2 Was the patient admitted via the E.D.?: Yes E.D. Visits: 5 Answers: Total Score: 9 Risk of Readmission: Low Risk Care Management Discharge Plan Reason for Hospitalization: Frequent Falls, Head Laceration, Vascular Dementia Discharge Plan: Lindy will be discharged home today, with a resumption of PT and new OT/RN/INSTRUMENTATION ENGINEERING TECHNICIAN. She will follow up with her community providers and continue per her plan of care. She will likely transport via private vehicle. Patient/Family Education Needs: Review of discharge instructions, activity, limitations, and plan of care. Discuss ask me three. Services Needed at Discharge: Home Health Care Services
--- NOTE | 2025-03-24 10:51 | PT.INTREAT ---
PT Notes Visit Reasons: Frequent Falls, Head laceration, Vascular Dementia Inpatient Physical Therapy Treatment Note [facility] Date: 03/24/2025 PRECAUTIONS:fall , Standard, [place]( R Hearing aide) SUBJECTIVE: Pt reports she is feeling better and hoping to go home. Pt requesting to use bathroom. OBJECTIVE: Pt presented seated at edge of bed, left facial droop noted. ? PAIN: denied VITALS: ?monitored by Nursing Therapeutic Activities ([id number][]): Direct one-on-one instruction in dynamic activities to improve functional performance. ? BED MOBILITY/TRANSFERS? Rolling L/R: independent Supine-sit: supervision sit to supine : CGA with increased time to get LEs onto bed? Sit-stand: SBA cues for hand placement? Stand-sit: SBA cues for hand placement? Bed-Commode:SBA with FWW ? Commode- chair: SBA with FWW Provided skilled cues and instruction on performance and technique throughout. - Facilitated safe and correct performance of level surface ambulation covering a distance of 50 feetx2 using use front wheeled walker with stand by assist and wheelchair follow for safety. Did not report of any increased pain. Denied headache, chest pain, and lightheadedness throughout activity. Minimal verbal cueing provided for AD management, directional changes, and posture. ASSESSMENT:?Pt continues to demonstrate progress with mobility progressing to SBA with cues .Pt approaching baseline level of function. PLAN: 1-2x/day, 7 days/week x 1 week. Plan of care has been reviewed with the DIRECTOR OF DIETARY providing the service under Physical Therapy direction. Initiate Physical Therapy intervention for strengthening, bed mobility, transfers, gait, stairs, balance training, use of assistive device. TREATMENT CODE/TIME: 96180/ [id number] DISCHARGE RECOMMENDATION: Home with HHPT and family support
--- NOTE | 2025-03-24 13:35 | OTIE_ITS ---
Occupational Therapy Notes Inpatient Occupational Therapy Evaluation Date: 03/24/25 Referring Doctor: Megha Crum NP OT Orders: Non urgent Precautions: Fall, Standard, Full PATIENT PROFILE/ADMITTING DIAGNOSIS: Pt is a 84 year old female who is admitted to Med surg for observation of the following dx of s/p fall OOB resulting in laceration to occipital area of scalp one day after discharge from Hospital in [facility]. She had difficulty with her speech which led to admission for observation with cognitive decline. Past Medical History: All Active Problems (Updated 03/22/25 @ 05:28 by Roberto Orona MD) Benign essential hypertension (Acute) Ambulatory dysfunction (Acute) Multiple falls (Acute) Cognitive decline (Acute) Laceration of occipital scalp (Acute) Frequent falls (Acute) Imbalance (Acute) Essential tremor (Acute) B12 deficiency (Acute) Accident due to mechanical fall without injury (Acute) Medical History Insomnia Pre-diabetes Hyperlipidemia OAB (overactive bladder) Dementia Anxiety Obesity Depression Hypothyroidism Surgical History S/P tonsillectomy S/P appendectomy S/P cholecystectomy Social History/Home Situation: Pt is an 84 yea rold female who reports that she lives with her son, DIL, and 2 granchildren. She notes that she is (I) with her ADL/IADL routines at baseline and does not need any (A). She has a walk in shower that has a bench but overall is not really providing OT with a clear idea of her baseline level of function. She notes that she would like to return home today. SUBJECTIVE: Pt notes that she would like to return home. She is happy to answer questions but is sick of being admitted and feels that she is ready to return home. OBJECTIVE: General Observation: Pleasant, sitting in chair with legs up Mental Status: A&Ox3 Pain: No c/o pain but talks a lot about the gertrude in her head. ROM: RUE AROM WFL L UE AROM WFL STRENGTH: RUE 4/5 throughout LUE 5/5 throughout FUNCTIONAL MOBILITY/ADLS: BATHING Pt denies all bathing reporting that she is tired and wants to rest. She notes that she has a walk in shower and can perform this (I). This was not tested with OT at todays session DRESSING seated in chair Dressing UE (I) with don and doffing [facility] gown Dressing LE Min (A) don and doffing (B) socks TOILETING NT pt notes that she is able to perform this but still requires SBA per PT note so she is not (I) with this at this time. EATING (I) with drinking liquids, ideal grasp BALANCE: Static sitting Normal Dynamic Sitting Normal Static Standing Good Dynamic Standing Good SPECIAL TESTS: Daily Activity Limitations Standardized Measure [facility] AM -PAC ?6 clicks? Daily Activity Inpatient Short Form: Raw score: 20 Standardized score: 42.03 CMS score: 38.32% INFORMED CONSENT/EDUCATION: Pt instructed in purpose of OT Consult and plan of care. ASSESSMENT: Patient is a 84-year-old female referred to occupational therapy services with diagnosis of s/p fall OOB resulting in laceration to occipital area of scalp one day after discharge from Hospital in [facility]. She had difficulty with her speech which led to admission for observation with cognitive decline.. Patient presents with clinical signs and symptoms consistent with dx, as demonstrated by the following impairment level findings/functional limitations: Impairments in ADL/IADL and leisure activities, decreased functional activity tolerance, decreased functional mobility, LE dressing and bathing needs (A). AMPAC score 20 Patient is assessed as a Moderate 05220 complexity based on the following: History: see above Examination: see functional limitations as noted above Presentation: evolving Decision Making: AMPAC score 20 GOALS Goals x1 week 1. Transfers (I) with toileting routines and to sink for grooming 2. Dressing seated on side of bed (I) LE dressing 3. Bathing, seated on side of the bed (I) with UE/LE 4. Toileting on toilet (I) 5. Eating (I) with cutting food and hand to mouth with appropriate use of silverware PLAN OF CARE/TREATMENT PLAN: 1x/day, 5 days/ week x 1week Initiate Occupational Therapy Services for bathing, dressing, grooming, toileting, eating, transfer training. DISCHARGE RECOMMENDATIONS OT recommends that pt return home with HH OT for assessment of ADLs in the home setting and need for further adaptive equipment to improve pts safety and (I) in the home setting. TREATMENT TIME/MINUTES/CODES 03956, 15 minutes Rosamaria Murphy OTR/[facility] [place], [place]
--- NOTE | 2025-03-24 13:50 | W.PALLCONSUL ---
Date of service: 03/24/25 Time of Service: 13:50 History of Present Illness Narrative: Lindy was seen in her hospital room. She was alone at the time of the visit. She reports that she lives with her son, Ziyad, [id number], Kimberly and her grandson, (21 yo) in [place]. Her son used to live in [place] and she moved in with him in 2007 after she was , she has lived with them since then. She lived in [place] prior to this. 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 Reviewed that she has had several ED visits in the last year, #5 over the last 5 months. She reports that the visits have been due to falls. She states, I just like kissing the floor. She reports having 4-5 falls in the last month. Reviewed that increasing ED visits often indicates decline. She does not feel like she has declined in the last year. Review of chart shows that she has lost 15-20 pounds over the last year. She reports that she takes showers independently at home. Kimberly checks on her frequently. She reports that she leaks urine at times. She spends her days lying in bed, watching TV. She is able to engage in the visit and carry on a conversation. When questions about specific things, she is more vague. Place: She is able to state that she is at [facility] in [place] but unable to recall the name of the town. Time: She thought it was February and was able to state the year is 2024 (reasonable as it is 03/24/2025). She states her birthday is next month. Person: She easily states her name and . Situation: she is able to tell me that she came into the hospital due to a fall. When discussing her birthday, she is able to state that she is turning 85. She also added, pretty soon I will be seeing my mom... up there and points up. CODE STATUS: She states she only wants attempts at resuscitation if she will survive and be herself. Reviewed that this would be unknown at the time. In this case, she would allow attempts to revive her. She is clear that she does not want to be on a ventilator for an extended period of time but she did not say NO to intubation. This will be an ongoing conversation. Assessment and Plan Assessment and plan (1) Multiple falls: Status: Acute Assessment and plan: She has had 5 ED visits for falls over the last 5 months. She thinks she had about 4-5 falls over the last months. Her family is working on placement in a memory care unit. She has had HH PT but has not always participated. She has been working with PT here. Increasing ED visits often indicates decline, this was discussed with Lindy. (2) Laceration of occipital scalp: Status: Acute Assessment and plan: Laceration was sutured in ED- no drainage or hematoma Ongoing wound care Non-narcotic pain medications- on PRN acetaminophen (3) Ambulatory dysfunction: Status: Acute Assessment and plan: Working with PT. She would benefit from ongoing PT. See PT recommendations. (4) Essential tremor: Status: Acute Assessment and plan: Recent start of topiramate may be worsening balance, on hold Ongoing primidone (5) Cognitive decline: Status: Acute Assessment and plan: She was able to engage in the visit. She would benefit from ongoing visits with palliative with family present to help with decision making. (6) Benign essential hypertension: Status: Acute (7) Hypokalemia: Status: Acute Assessment and plan: K 2.9 Replacement given (8) Depression: Assessment and plan: On Paxil (9) Palliative care encounter: Status: Acute (10) Advanced care planning/counseling discussion: Status: Acute Assessment and plan: Lindy was seen for initial Palliative visit. She was alone at the time of the visit. Discussed CODE status. She remains a FULL CODE at this time. She would benefit from ongoing conversations RE: CODE status and GOC. It may be beneficial for her to have family present for these discussions in the setting of cognitive decline. She thinks her family has AD- will see if we can locate. She agrees to outpatient f/u. Review of Systems Narrative: Denies concerns. PFSH All Active Problems (Updated 03/24/25 @ 15:45 by Maris Aldana NP) Advanced care planning/counseling discussion (Acute) Palliative care encounter (Acute) On deep vein thrombosis (DVT) prophylaxis (Acute) Hypokalemia (Acute) Benign essential hypertension (Acute) Ambulatory dysfunction (Acute) Multiple falls (Acute) Cognitive decline (Acute) Laceration of occipital scalp (Acute) Frequent falls (Acute) Imbalance (Acute) Essential tremor (Acute) B12 deficiency (Acute) Accident due to mechanical fall without injury (Acute) Medical History Insomnia Pre-diabetes Hyperlipidemia OAB (overactive bladder) Dementia Anxiety Obesity Depression Hypothyroidism Surgical History S/P tonsillectomy S/P appendectomy S/P cholecystectomy Family History Mother Dementia Father Cancer Brother Colon cancer COPD (chronic obstructive pulmonary disease) Social History Smoking/Tobacco Use Status: Never Smoking risk assessment performed?: Yes Alcohol Intake: never Drug use: Never Substance use type: does not use Household members: family Housing: house Number of Children: 1 What is your relationship status?: Panel score (0-1 are the most socially isolated patients): 0 Do you feel safe at home: Yes Do you feel safe in your relationship?: Yes Exam Narrative Exam Narrative: General: pleasant, elderly female, well-nourished, chronically ill appearing, sitting up in the recliner in her hospital room. She is talkative and engages in the visit. HEENT: atraumatic, EOMI, mmm, tremor noted. Neck: supple Respiratory: respirations appear even and unlabored at rest. Ext: moves all 4 extremities freely, no pitting edema Results Last Vital Signs Temp 36.4 C L 03/24/25 07:48 Pulse 61 03/24/25 07:48 Resp 16 03/24/25 07:48 BP 110/74 03/24/25 07:48 Pulse Ox 92 03/24/25 07:48 Labs 03/24/25 06:33 03/24/25 06:33 Labs: Laboratory Results - last 24 hr 03/23/25 03/24/25 15:15 06:33 WBC 7.92 RBC 4.19 Hgb 13.1 Hct 38.9 MCV 93 MCH 31.3 MCHC 33.7 RDW 13.8 Plt Count 267 MPV 10.0 Immature Gran % 0.4 Neutrophils % 53.7 Lymphocytes % 29.2 Monocytes % 8.6 Eosinophils % 7.2 Basophils % 0.9 Nucleated RBC % 0.0 Absolute Neutrophils 4.26 Absolute Lymphocytes 2.31 Absolute Monocytes 0.68 Absolute Eosinophils 0.57 Absolute Basophils 0.07 Sodium 144 Potassium 3.8 Chloride 108 H Carbon Dioxide 25.2 Anion Gap 10.8 BUN 11 Creatinine 0.8 Est GFR (CKD-EPI 2020) 73.52 Glucose 107 H Hemoglobin A1c 5.4 Calcium 9.0 Magnesium 2.0 Triglycerides 272 H Total Cholesterol 191 LDL Cholesterol, Calc 96 HDL Cholesterol 41 L Time Spent Time Spent with Patient Time Spent(min): 110
--- NOTE | 2025-03-24 14:44 | PT.INTREAT ---
PT Notes Visit Reasons: Frequent Falls, Head laceration, Vascular Dementia Date: 03/24/2025 PRECAUTIONS: Standard Fall. Activity as tolerated. SUBJECTIVE: Pt in recliner when approached for therapy tis afternoon. agreed to participate with this afternoon's session. OBJECTIVE: ? PAIN: denies VITALS: monitored by nursing Therapeutic Activities 28609: Direct one-on-one instruction in dynamic activities to improve functional performance. ?? BED MOBILITY/TRANSFERS? Rolling L/R: supervision Supine-sit: ?supervision ? Sit-supine: ? supervision? Sit-stand: ? SBA cues for hand placement? Stand-sit: ??SBA cues for hand placement ? Bed-Chair:? ?SBA cues for hand placement ? Chair-bed: SBA cues for hand placement ? Provided skilled cues and instruction on performance and technique throughout. Gait Training 35742: Direct one-on-one instruction and skilled instruction in: Movement sequencing Turning and movement with proper form Provided instruction in gait pattern Patient education regarding pacing and breathing techniques to maximize activity tolerance? GAIT? Assistive Device: ??No AD? Weight bearing: FWB Assist: ? SBA? Distance:?? 100' x 2 seated rest break in between? Deviation: ? WBOS, short step length, low step height, stoop forward posture, increased BUE lean ? ASSESSMENT:?pt with SOB by the end of 100' which was relived by seated rest break and deep breathing. pt stayed in recliner after session, alarms and call funez setup at conclusion of session. PLAN: Continue with balance training, global strengthening and general conditioning for improved safety, mobility and activity tolerance until pt is ready for DC. TREATMENT CODE/TIME: [id number], [id number] 30mins (1:45-2:15pm)
--- NOTE | 2025-03-24 15:52 | DSE_ITS ---
Date of service: 03/24/25 Time of Service: 15:52 DS: Diagnosis Discharge Diagnosis (1) Multiple falls: Status: Acute (2) Laceration of occipital scalp: Status: Acute (3) Ambulatory dysfunction: Status: Acute (4) Essential tremor: Status: Acute (5) Cognitive decline: Status: Acute (6) Benign essential hypertension: Status: Acute (7) Hypokalemia: Status: Acute (8) Depression: (9) Palliative care encounter: Status: Acute (10) Advanced care planning/counseling discussion: Status: Acute Discharge Plan Disposition Patient Disposition: Home W/Home Health Services Condition: Improving Discharge Details Reason For Visit: Frequent Falls, Head laceration, Vascular Dementia Admit Date/Time: 03/22/25 00:12 Admit Provider: Roberto Orona Attending Provider: Roberto Orona Primary Care Provider: Richard Kinney Hospital Course Hospital Course: 84 year old woman with a pst medical history of vascular dementia, hypothyroidism, chronic non-suppurative otitis media , depression, essential tremors, gait disorder, hyperlipidemia, hypertriglyceridemia, GERD, hearing loss, arthritis, chronic left facial droop worsening with fatigue presenting on March 21 2025 s/p fall at home with head strike and occipital scalp laceration repaired in the ED with gertrude. The patient was seen earlier in the day at the [facility] ED, due to garbled speech. CVA workup there was reported as negative for stroke. Report of having had 7 falls in past 7 days. The patient was seen by neurologist Dr Sorto on March 20, with continuing treatment for chronic vascular dementia as well as continuing topiramate for tremors. Brain and neck CTA was negative for actionable findings and showed ongoing severe microvascular changes of the white matter. Blood work was unremarkable and UA was positive for leukocyte esterase and pending cultures. The patient was admitted to the medical surgical floor for further evaluation. Topiramate was held due to its potential to worsen balance. Records from [facility] were requested multiple times and never obtained. Mrs Arias's son provided records. MRI not completed in [facility], recommendations by tele-neuro consultation however recommended completion of toxic metabolic work-up including ruling out UTI, aspirin load then 81 mg daily but not initiated due to allergy. Oral fosfomycin given for gram negative mixed livier 50 to 100 K findings in urine culture. Atorvastatin initiated, triglycerides 272, LDL 96, cholesterol 191. Mastoid air cells: Effusion in the right mastoid air cells seen on CT but outpatient ENT referral already order by Dr. Sorto. MRI was negative for evidence of hemorrhage or restricted diffusion to that would suggest acute or subacute ischemic event, but abundant bilateral periventricular signal abnormality consistent with chronic small vessel disease again seen. The patient will be discharged home with home health PT with addition of RN, OT and MANAGER MEDICAL [employer]ITING. The patient will need a follow-up with PCP within 7 days of discharge. Patient requires penitentiary for medication management, monitoring of chronic conditions, and education. Occupational therapy needed for assistance with ADLs, safety assessment, and cognitive support. Physical therapy continued to be indicated for mobility training, balance improvement, and fall prevention. Patient recently hospitalized and requires [employer]NA[employer] support for psychosocial assessment, transition of care planning, assistance with accessing community resources, and emotional support to aid adjustment and reduce risk of rehospitalization. Discussed with Dr. Choi Recommendations for Follow Up Recommended tests to be ordered by follow up provider: [place] removal to occipital scalp on 03/29/2025, UA, metabolic disease work-up , Neurology referral needed. [facility] referral completed Home Meds and New Rx's Prescriptions: New atorvastatin 40 mg Tablet 40 mg PO QPM Qty: 30 0RF polyethylene glycol 3350 17 gram Powder In Packet 17 g PO DAILY PRN Qty: 30 0RF Continued omeprazole magnesium 20 mg tablet,delayed release (DR/EC) 20 mg PO DAILY atenolol 25 mg tablet 25 mg PO BID primidone 50 mg tablet 100 mg PO BID montelukast [Singulair] 10 mg tablet 10 mg PO DAILY paroxetine HCl 30 mg tablet 30 mg PO DAILY Patient Comments: TAKE 1 TABLET DAILY Held topiramate 50 mg tablet 50 mg PO DAILY Hold Instructions: Resume on 04/14/25. Resume as per PCP VS neurology Discharge Instructions Additional Instructions: Patient currently has HH PT. Add RN, OT, MANAGER MEDICAL WRITING please Patient requires penitentiary for medication management, monitoring of chronic conditions, and education. Occupational therapy needed for assistance with ADLs, safety assessment, and cognitive support. Physical therapy continued to be indicated for mobility training, balance improvement, and fall prevention . Referrals: [facility] [Outside] Referral Note: Patient currently has HH PT. Add RN, OT, MANAGER MEDICAL WRITING Patient requires penitentiary for medication management, monitoring of chronic conditions, and education. Occupational therapy needed for assistance with ADLs, safety assessment, and cognitive support. Physical therapy continued to be indicated for mobility training, balance improvement, and fall prevention. Patient recently hospitalized and requires [employer]NA[employer] support for psychosocial assessment, transition of care planning, assistance with accessing community resources, and emotional support to aid adjustment and reduce risk of rehospitalization. Richard Kinney [Primary Care Provider, Medicine] Referral Note: Follow-up with PCP within 7 days of discharge please Activity:: Activity as Tolerated Equipment/Supplies:: Walker Diet:: heart healthy Discharge Orders Discharge Orders: Discharge Order (Routine); Ordered 03/24/25 Ordered By: Zaida Romero DS: Summary Time Spent with Patient providing and/or coordinating discharge services: Greater than 30 minutes Status at Discharge Functional status at discharge: uses cane/walker Overall status at discharge: patient is progressing back to baseline Mental Status: mental status grossly normal Speech and Movement: speech and movement normal Mood: congruent mood Affect: normal affect Exam Narrative Exam Narrative: Obese 84 yo female patient, decreased head tremors, no acute focal neurological deficit, alert and confused- off in time , w/o acute distress, repaired occipital head laceration - no drainage Regular heart , S1, S2 , no murmur, unlabored breathing, clear lungs, abdomen is non-acute, no CVA tenderness, moves all 4 ext. Psych Mental Status: mental status grossly normal Speech and Movement: speech and movement normal Mood: congruent mood Affect: normal affect DS: Data Vitals/I&O Vitals and I&O: Vital Signs Temperature 36.4 C L 03/24/25 07:48 Temperature Source Temporal Artery Scan 03/24/25 07:48 Pulse 61 03/24/25 07:48 Pulse Rhythm Regular 03/22/25 02:30 Pulse 68 03/22/25 01:50 Respiratory Rate 16 03/24/25 07:48 Respiratory Effort Normal 03/22/25 02:30 Respiratory Depth Normal 03/22/25 02:30 Blood Pressure 110/74 03/24/25 07:48 Blood Pressure Mean 86 03/24/25 07:48 Blood Pressure Position Supine 03/21/25 20:28 Pulse Oximetry 92 03/24/25 07:48 Oxygen Delivery Method Room Air 03/24/25 07:48 Oxygen Flow Rate 0 03/24/25 07:48 Pain Level 3 03/23/25 15:36 Comment rn notified 03/22/25 07:25 Intake & Output 03/23/25 03/24/25 03/24/25 23:59 11:59 23:59 Intake Total 327.5 / 527.5 Output Total 250 / 350 700 / 700 Balance 77.5 / 177.5 -700 / -700 Intake: IV 77.5 / 77.5 Oral 250 / 450 Output: Urine 250 / 350 700 / 700 Other: Urine Color Straw Yellow Urine Appearance Clear Urine Odor Normal Data Completed and Pending Labs on day of discharge: Labs from last 24 hours 03/24/25 06:33 WBC 7.92 RBC 4.19 Hgb 13.1 Hct 38.9 MCV 93 MCH 31.3 MCHC 33.7 RDW 13.8 Plt Count 267 MPV 10.0 Immature Gran % 0.4 Neutrophils % 53.7 Lymphocytes % 29.2 Monocytes % 8.6 Eosinophils % 7.2 Basophils % 0.9 Nucleated RBC % 0.0 Absolute Neutrophils 4.26 Absolute Lymphocytes 2.31 Absolute Monocytes 0.68 Absolute Eosinophils 0.57 Absolute Basophils 0.07 Sodium 144 Potassium 3.8 Chloride 108 H Carbon Dioxide 25.2 Anion Gap 10.8 BUN 11 Creatinine 0.8 Est GFR (CKD-EPI 2020) 73.52 Glucose 107 H Calcium 9.0 Magnesium 2.0 PFSH All Active Problems (Updated 03/24/25 @ 16:53 by Zaida Romero APRN) Advanced care planning/counseling discussion (Acute) Palliative care encounter (Acute) On deep vein thrombosis (DVT) prophylaxis (Acute) Hypokalemia (Acute) Benign essential hypertension (Acute) Ambulatory dysfunction (Acute) Multiple falls (Acute) Cognitive decline (Acute) Laceration of occipital scalp (Acute) Frequent falls (Acute) Imbalance (Acute) Essential tremor (Acute) B12 deficiency (Acute) Accident due to mechanical fall without injury (Acute) Medical History Insomnia Pre-diabetes Hyperlipidemia OAB (overactive bladder) Dementia Anxiety Obesity Depression Hypothyroidism Surgical History S/P tonsillectomy S/P appendectomy S/P cholecystectomy Family History Mother Dementia Father Cancer Brother Colon cancer COPD (chronic obstructive pulmonary disease) Social History Smoking/Tobacco Use Status: Never Smoking risk assessment performed?: Yes Alcohol Intake: never Drug use: Never Substance use type: does not use Household members: family Housing: house Number of Children: 1 What is your relationship status?: Panel score (0-1 are the most socially isolated patients): 0 Do you feel safe at home: Yes Do you feel safe in your relationship?: Yes Time Spent with Patient Time Spent with Patient: >85 minutes Time was spent: preparing to see the patient(eg.review tests), obtaining and/or reviewing separately otained hiistory, ordering medications,tests, procedures, referring, communicating with other health patient care secretary, indepentently interpreting results, counseling the patient and care coordination
[2025-03-24 17:11] LABS: Ammonia < 10 umol/L (11-32)
== END 2025-03-24 18:20 | disposition home health service (06) ==
LOC: ER 03-22 02:07 → MS 03-22 02:09
PROVIDERS: Nurse Practitioner Family; Admitting Provider Family Medicine; Emergency Provider Registered Nurse Emergency; PCP Hospitalist; Responsible Provider Nurse Practitioner Acute Care; Visit Provider Family Medicine
DX: S01.01XA Laceration without foreign body of scalp, initial encounter (principal); R29.6 Repeated falls; G25.0 Essential tremor; F01.511 Vascular dementia, unspecified severity, with agitation; I10 Essential (primary) hypertension; E87.6 Hypokalemia; F32.A Depression, unspecified; I67.89 Other cerebrovascular disease; J45.909 Unspecified asthma, uncomplicated; D53.8 Other specified nutritional anemias; R73.03 Prediabetes; G47.00 Insomnia, unspecified; E78.5 Hyperlipidemia, unspecified; E03.9 Hypothyroidism, unspecified; E66.9 Obesity, unspecified; N32.81 Overactive bladder; Z79.899 Other long term (current) drug therapy; F05 Delirium due to known physiological condition; E78.1 Pure hyperglyceridemia; K21.9 Gastro-esophageal reflux disease without esophagitis; R29.810 Facial weakness
CPT/HCPCS: 00123; 12001; 36415; 36416; 70496; 70498; 80048; 80053; 80061; 82962; 93005; 96372; 97116; 97162; 97530; 99285; J1650; 70551; 71045; 81003; 81015; 82140; 83036; 83735; 84484; 85025; 85610; 87086; 93010; 99222; 99233; 99239; G0378; J3480; J3490

== ENCOUNTER 2025-05-13 15:57 | Emergency (ER) | payer MEDICARE, MEDICAID, SELFPAY ==
[2025-05-13 16:07] VITALS: BP 151/77; PULSE 72; RESP 18; O2SAT 96
[2025-05-13 16:16] VITALS: BP 151/77; PULSE 72; RESP 16; RESP 18; O2SAT 96
--- NOTE | 2025-05-13 16:28 | W.ED.GENAD ---
Discharge Plan Disposition Patient Disposition: Home Condition: Good Discharge Details Clinical Impression: Change in mental status Primary Care Provider: Richard Kinney ED Provider: Shashi Collins Home Meds and New Rx's Prescriptions: No Action donepezil 5 mg tablet 10 mg PO Patient Comments: TAKE ONE TABLET BY MOUTH AT BEDTIME loratadine 10 mg tablet 10 mg PO DAILY propranolol 60 mg capsule,extended release 24 hr 60 mg PO QDAY Patient Comments: TAKE ONE CAPSULE BY MOUTH AT BEDTIME omeprazole magnesium 20 mg tablet,delayed release (DR/EC) 20 mg PO DAILY topiramate 50 mg tablet 50 mg PO DAILY primidone 50 mg tablet 100 mg PO BID montelukast [Singulair] 10 mg tablet 10 mg PO DAILY paroxetine HCl 30 mg tablet 30 mg PO DAILY Patient Comments: TAKE 1 TABLET DAILY atorvastatin 40 mg Tablet 40 mg PO QPM Qty: 30 0RF Discharge Instructions Additional Instructions: You were seen in the emergency department for some worsening confusion. We performed labs and a urine test that were both unremarkable. The CAT scan your head was unremarkable. The exact cause of your symptoms is not clear. You are otherwise acting appropriate at the time of my evaluation. Follow-up with your primary care doctor. If you develop worsening symptoms please return back to the emergency department. Please try to avoid falls over the next few days while waiting for your wheelchair evaluation and follow-up with your primary care doctor. You should ask your family members and caregivers for assistance when you are planning to get up and use your walker to move around. Discharge Data Discharge Date/Time-TO BE ENTERED AT DEPARTURE: 05/13/25 18:17 HPI General Mode of arrival: ambulatory. Date/Time Provider Initiated Documentation: 05/13/25 16:15. Limitations to Documentation: no limitations. Information obtained by: patient. HPI Narrative: Is an 85-year-old female long history of dementia who is now presenting with confusion. Worsening over the last 3 to 4 days. Actually seemed a little bit better today but the family was still worried and brought her here. At the time of my evaluations is alert and oriented x 4 and answering questions appropriately. She is denying any other complaints. Family says they are worried she could have a UTI. Related Data Home Medications ?Medication ?Instructions ?Recorded ?Confirmed primidone 50 mg tablet 100 mg PO BID 12/20/23 04/25/25 montelukast 10 mg tablet 10 mg PO DAILY 05/23/24 04/25/25 (Singulair) omeprazole magnesium 20 mg 20 mg PO DAILY 11/16/24 04/25/25 tablet,delayed release topiramate 50 mg tablet 50 mg PO DAILY 03/06/25 04/25/25 Held on 03/24/25. Instructions: Resume on 04/14/25. Resume as per PCP VS neurology paroxetine HCl 30 mg tablet 30 mg PO DAILY 03/22/25 04/25/25 atorvastatin 40 mg tablet 40 mg PO QPM #30 tabs 03/24/25 04/25/25 donepezil 5 mg tablet 10 mg PO 04/25/25 04/25/25 loratadine 10 mg tablet 10 mg PO DAILY 04/25/25 04/25/25 propranolol 60 mg capsule,24 60 mg PO QDAY 04/25/25 04/25/25 hr,extended release Previous Rx's ?Medication ?Instructions ?Recorded atorvastatin 40 mg tablet 40 mg PO QPM #30 tabs 03/24/25 Allergies Allergy/AdvReac Type Severity Reaction Status Date / Time Penicillins Allergy Mild Hives Verified 04/25/25 08:37 calcium carbonate Allergy Unknown OTHER Verified 04/25/25 08:37 clarithromycin Allergy Unknown PALPITATION Verified 04/25/25 08:37 S ergocalciferol (vitamin D2) Allergy Unknown OTHER Verified 04/25/25 08:37 (From Vitamin D2) levofloxacin Allergy Unknown OTHER Verified 04/25/25 08:37 losartan Allergy Unknown OTHER Verified 04/25/25 08:37 phytonadione (vitamin K1) Allergy Unknown Other (See Verified 04/25/25 08:37 Comment) aspirin Allergy Other (See Verified 04/25/25 08:37 Comment) General Stated Complaint: AMS/LOC IDALMIS: 3 Review of Systems Constitutional Constitutional: Denies chills, Denies fever(s) and Denies headache(s) Eyes Eyes: Denies change in vision ENT Ears, Nose, Mouth, and Throat: Denies headache(s) and Denies odynophagia Cardiovascular Cardiovascular: Denies chest pain and Denies dyspnea Respiratory Respiratory: Denies dyspnea Gastrointestinal Gastrointestinal: Denies abdominal pain, Denies diarrhea, Denies nausea, Denies odynophagia and Denies vomiting Genitourinary Genitourinary: Denies dysuria Musculoskeletal Musculoskeletal: Denies myalgias Integumentary/Breasts Skin/Breast: Denies changing lesions Neurologic Neurologic: Denies headache(s) and Reports other (mental status change) Endocrine Endocrine: Denies heat intolerance Hematologic/Lymphatic Hematologic/Lymphatic: Denies lymphadenopathy Exam Const General: cooperative Nutritional Appearance: average body habitus Orientation: alert, awake and oriented x3 HENMT Head: normal to inspection Ears: external ears normal Mouth: moist mucous membranes Eyes Pupils: PERRL EOM: EOM intact bilaterally and No nystagmus Neck Neck: full ROM and no tracheal deviation Chest Chest: normal inspection of the chest Resp Auscultation: clear to auscultation bilaterally Cardio Rate: regular rate Rhythm: regular rhythm GI Inspection: normal to inspection Palpation: soft, no guarding, not rigid and nontender Back/Spine/Pelvis Back: No no CVA tenderness Thoracic/Lumbar Spine: thoracic and lumbar spine normal to inspection Skin General skin exam: no rashes or lesions noted Neuro General: patient alert, patient awake and patient oriented x3 Cranial Nerves: CN's II-XI intact bilaterally, PERRL and no nystagmus Cognition: normal cognition Motor: muscle tone normal throughout and strength 5/5 throughout Sensory Exam: no sensory deficits noted Extrem General: normal to inspection Course Vital Signs Vital signs: Vital Signs Pulse 72 05/13/25 16:07 Respiratory Rate 18 05/13/25 16:07 Blood Pressure 151/77 H 05/13/25 16:07 Pulse Oximetry 96 05/13/25 16:07 Pulse 72 05/13/25 16:16 Respiratory Rate 18 05/13/25 16:16 Respiratory Effort Normal 05/13/25 16:16 Blood Pressure 151/77 H 05/13/25 16:16 Blood Pressure Position Supine 05/13/25 16:07 Pulse Oximetry 96 05/13/25 16:16 Oxygen Delivery Method Room Air 05/13/25 16:07 Oxygen Flow Rate 0 05/13/25 16:07 Pain Level 0 05/13/25 16:16 Medical Decision Making This is an 85-year-old female history of dementia who is presenting with confusion. Alert and oriented x 4 with no neurologic deficits on my evaluation. Obtained CT head and no intracranial hemorrhage. She has no focal deficits this is a stroke so no role for more advanced imaging at this time. She has no fever or focal signs of infection on exam. Obtained urinalysis and no evidence of UTI. Send broad labs that are grossly unremarkable. Family says she is now acting normal and they just wanted her to get checked out. They have follow-up with her primary this week. Apparently she has had progressive weakness for months and getting a evaluation for a wheelchair early next week additionally. She already does home PT. She does not want to go into a facility at this time but the family is still trying to convince her and they are still considering this. They have a hospice case manager with her primary care doctor. Otherwise the patient is alert to x 4 with normal vital signs and no deficits at this time. Family feels comfortable taking the patient home. Will discharge with return precautions. Imaging Data Radiologic Study: Attestation: I personally reviewed and interpreted this imaging study as follows: Imaging: CT Scan (head) My impression: CT head unremarkable Radiologist's impression: Unremarkable Lab Data Labs: Labs grossly unremarkable ECG Data Attestation: I personally reviewed and interpreted this ECG (s) as follows: Prior ECG tracings: available for review Interpretation: EKG is normal sinus rhythm with no ischemic changes. Normal intervals and axis. No ST or T wave changes. Otherwise unremarkable EKG. 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 (Acute) Benign essential hypertension (Acute) Ambulatory dysfunction (Acute) Cognitive decline (Acute) Laceration of occipital scalp (Acute) Frequent falls (Acute) Imbalance (Acute) Essential tremor (Acute) B12 deficiency (Acute) Accident due to mechanical fall without injury (Acute) Medical History Advanced care planning/counseling discussion Insomnia Pre-diabetes Hyperlipidemia OAB (overactive bladder) Dementia Anxiety Obesity Depression Hypothyroidism Surgical History S/P tonsillectomy S/P appendectomy S/P cholecystectomy Family History Mother Dementia Father Cancer Brother Colon cancer COPD (chronic obstructive pulmonary disease) Social History Smoking/Tobacco Use Status: Never Smoking risk assessment performed?: Yes Alcohol Intake: never Drug use: Never Substance use type: does not use Household members: family Housing: house Number of Children: 1 What is your relationship status?: Panel score (0-1 are the most socially isolated patients): 0 Do you feel safe at home: Yes Do you feel safe in your relationship?: Yes
[2025-05-13 17:02] LABS: Abs Immature Grans 0.03 10^3/uL (0.0-0.06); HCT 43.3 % (36.0-46.0); HGB 14.3 g/dL (11.2-15.7); Immature Grans % 0.3 %; MCH 30.6 pg (27.0-33.0); MCHC 33.0 % (32.0-36.0); MCV 93 fL (80-95); MPV 10.2 fL (8.0-11.0); Platelet Count 283 10^3/uL (130-400); RBC 4.67 10^6/uL (3.93-5.22); RDW 13.7 % (11.7-14.6); RDW-SD 46.5 fL; WBC 8.59 10^3/uL (4.4-10.8)
[2025-05-13 17:06] LABS: Glucose Negative (Negative)
[2025-05-13 17:17] LABS: ALT 26 U/L (14-59); AST 18 U/L (15-37); Albumin 3.6 g/dL (3.4-5.0); Alkaline Phosphatase 102 U/L (46-116); Anion Gap 7.3 mmol/L (3-11); BUN 11 mg/dL (7-18); Bilirubin, Total 0.3 mg/dL (0.2-1.0); CO2 27.7 mmol/L (21.0-32.0); Calcium 9.2 mg/dL (8.5-10.1); Chloride 106 mmol/L (98-107); Estimated GFR 55.90 (mL/min/1.73m2); Glucose 128 mg/dL (74-106); Lipase 33 U/L (<78); Potassium 3.6 mmol/L (3.5-5.1); Sodium 141 mmol/L (136-145); Total Protein 8.1 g/dL (6.4-8.2)
--- NOTE | 2025-05-13 17:20 | DI.CT_ITS ---
Exam(s) CT HEAD WO EXAM: CT HEAD WO CLINICAL HISTORY: mental status change, unknown cause. TECHNIQUE: Imaging Protocol: Axial computed tomography images with coronal and sagittal reformatted images were created and reviewed COMPARISON: CT CT HEAD WO from 10/24/[address] HEAD WO from 01/05/[address] BRAIN NECK CTA from 03/21/2025 FINDINGS: Ventricles and Extra axial spaces: Normal in size and morphology for the patient's age. Hemorrhage: None. Cerebral parenchyma: There are areas of decreased attenuation in the white matter consistent with chronic microvascular ischemic disease. There is no evidence of an acute territorial infarct. No acute mass effect is present. Midline shift: None. Brainstem/Cerebellum: Normal. Calvarium: Normal. Visualized Paranasal sinuses/Mastoids: Clear. Soft Tissues: Unremarkable. IMPRESSION: No acute intracranial process. RADIATION DOSE DELIVERED: 862.91mGy.cm Total DLP DATA REPOSITORY: All CT scans at this facility are submitted to the National Radiology Data Registry (NRDR) Dose Index Registry (DIR) with the [employer] ([employer]). RADIATION OPTIMIZATION: All CT scans at this facility use at least one of these dose optimization techniques: automated exposure control; mA and/or kV adjustment per patient size (includes targeted exams where dose is matched to clinical indication); or iterative reconstruction.
[2025-05-13] MEDS: Normal Saline 500 ML IV (17:53)
== END 2025-05-13 18:17 | disposition home or self-care (01) ==
PROVIDERS: Emergency Provider Student in an Organized Health Care Education/Training Program; PCP Hospitalist
DX: R41.82 Altered mental status, unspecified (principal); Z86.59 Personal history of other mental and behavioral disorders
CPT/HCPCS: 36415; 80053; 83690; 96360; 99284; 70450; 81003; 85025